=== PATIENT | male | born 1960 | race Caucasian/White ===

== ENCOUNTER 2017-12-27 09:13 | Inpatient (IN) | payer OTHER ==
[2017-12-27 09:26] VITALS: BMI 31.9
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
[2017-12-27] MEDS ORDERED: MAGNESIUM CITRATE 300 ML BOTTLE PO PRN (11:07)
[2017-12-27] MEDS ORDERED: NICOTINE POLACRILEX 2 MG GUM BC PRN (11:07)
[2017-12-27] MEDS ORDERED: chlordiazePOXIDE HCL 25 MG CAPSULE PO PRN (11:07)
[2017-12-27] MEDS ORDERED: guaiFENesin/D-METHORPHAN HB 10 ML UNIT-DOSE CUPS PO PRN (11:07)
[2017-12-27] MEDS ORDERED: MAGNESIUM HYDROX 2400MG/30ML ORAL SUSPENSION 30 ML CUP PO PRN (11:07)
[2017-12-27] MEDS ORDERED: IBUPROFEN 400 MG TABLET (FP) PO PRN (11:07)
[2017-12-27] MEDS ORDERED: MENTHOL/PHENOL 1 EACH UD MM PRN (11:07)
[2017-12-27] MEDS ORDERED: LOPERAMIDE HCL 2 MG CAPSULE PO PRN (11:07)
[2017-12-27] MEDS ORDERED: ACETAMINOPHEN 325 MG TABLET (FP) PO PRN (11:07)
[2017-12-27] MEDS ORDERED: MAG HYDROX/AL HYDROX/SIMETH 30 ML UNIT-DOSE CUP PO PRN (11:07)
[2017-12-27] MEDS ORDERED: hydrOXYzine PAMOATE 50 MG CAPSULE (FP) PO PRN (11:07)
[2017-12-27] MEDS ORDERED: P-EPHED 60MG/TRIPROLIDI 2.5MG TABLET PO PRN (11:07)
[2017-12-27] MEDS ORDERED: chlordiazePOXIDE HCL 25 MG CAPSULE PO ONE (12:30)
[2017-12-27] MEDS: NICOTINE 21 MG/24 HOURS TOPICAL PATCH TD SCH (12:31)
--- NOTE | 2017-12-27 17:04 | PN ---
[facility] Progress Note Note: Psychiatrist family and consumer education teacher: As per nursing report patient asking for preadmission medications; Chart reviewed, as per medications list patient suffers Schizophrenia and taking Seroquel 600mg po qhs, 300mg poqd. Max. FDA approved dose of Seroquel is 800mg per day, patient can be over sedated on Detox medications and High Seroquel dose at the same time, at the same time patient at risk to be psychotic in a case his Seroquel would be decreased, Start on: Seroquel 600mg po qhs Seroquel 200mg poqd Final dose of Seroquel should be adjusted per psychiatric evaluation in am.
[2017-12-27] MEDS: chlordiazePOXIDE HCL 25 MG CAPSULE PO SCH ×2 (17:13→22:25)
[2017-12-27] MEDS: ENALAPRIL MALEATE 10 MG TABLET (FP) PO SCH (17:13)
[2017-12-27 17:22] LABS: URINE APPEARANCE CLEAR; URINE BILIRUBIN NEGATIVE (<2.0 mg/dL); URINE COLOR LTYELLOW; URINE GLUCOSE (UA) NEGATIVE (NEGATIVE); URINE KETONE NEGATIVE (NEGATIVE); URINE LEUK ESTERASE NEGATIVE (NEGATIVE); URINE NITRITE NEGATIVE (NEGATIVE); URINE PROTEIN NEGATIVE (NEGATIVE); URINE UROBILINOGEN NEGATIVE mg/dL (0.2-1.0)
[2017-12-27] MEDS ORDERED: MELATONIN 5 MG TABLETS PO PRN (22:00)
[2017-12-27] MEDS: QUEtiapine FUMARATE 200 MG TABLET PO SCH (22:24)
[2017-12-27] MEDS: THIAMINE HCL 100 MG TABLET (FP) PO SCH (22:24)
[2017-12-28] MEDS: chlordiazePOXIDE HCL 25 MG CAPSULE PO SCH ×4 (05:38→22:29)
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
[2017-12-28 09:50] LABS: RDW 16.1 % (11.9-15.9)
[2017-12-28 09:53] LABS: HEMATOCRIT 40.4 % (35.4-49); HEMOGLOBIN 13.4 GM/dL (11.7-16.9); MCH 31.7 pg (25.7-33.7); MCHC 33.2 g/dl (32.0-35.9); MEAN CELL VOLUME 95.4 fl (80-96); MEAN PLT VOLUME 9.7 fl (7.5-11.1); PLATELET COUNT 224 K/MM3 (134-434); RBC 4.23 M/mm3 (4.00-5.60); WHITE BLOOD COUNT 6.3 K/mm3 (4.0-10.0)
[2017-12-28 09:57] LABS: ALBUMIN 3.4 g/dl (3.4-5.0); ANION GAP 10 MMOL/L (8-16); BLOOD UREA NITROGEN 12 mg/dL (7-18); CHLORIDE 104 mmol/L (98-107); CO2 27 mmol/L (21-32); GLUCOSE,RANDOM 99 mg/dL (74-106); POTASSIUM 4.2 mmol/L (3.5-5.1); SGPT/ALT 98 U/L (12-78); SODIUM 141 mmol/L (136-145)
[2017-12-28 10:00] LABS: ALK PHOS 67 U/L (45-117); BILIRUBIN,TOTAL 0.5 mg/dL (0.2-1.0); CREATININE 0.9 mg/dL (0.7-1.3); SGOT/AST 47 U/L (15-37); TOT PROT 6.7 g/dl (6.4-8.2)
[2017-12-28] MEDS ORDERED: QUEtiapine FUMARATE 200 MG TABLET PO SCH ×2 (10:00)
[2017-12-28] MEDS: PRENATAL VITAMINS W/ FOLIC ACID TABLET (FP) PO SCH (10:16)
[2017-12-28] MEDS: FLUoxetine HCL 20 MG CAPSULE (FP) PO SCH (10:17)
[2017-12-28] MEDS: ENALAPRIL MALEATE 10 MG TABLET (FP) PO SCH (10:17)
[2017-12-28] MEDS: QUEtiapine FUMARATE 200 MG TABLET PO SCH ×2 (10:17→22:29)
[2017-12-28] MEDS: NICOTINE 21 MG/24 HOURS TOPICAL PATCH TD SCH (10:17)
--- NOTE | 2017-12-28 11:11 | PN ---
S CIWA - CIWA Score Nausea/Vomitin-No Nausea/No Vomiting Muscle Tremors: 3 Anxiety: 5 Agitation: 4-Moderately Restless Paroxysmal Sweats: 2 Orientation: 0-Oriented Tacttile Disturbances: 0-None Auditory Disturbances: 0-None Visual Disturbances: 0-None Headache: 0-None Present CIWA-Ar Total Score: 14 BHS Progress Note (SOAP) Subjective: ANXIETY,SWEATS,FATIGUE. Objective: 12/28/17 11:10 Vital Signs 12/28/17 12/28/17 12/28/17 03:30 06:09 06:30 Temperature 96.8 F L Pulse Rate 74 Respiratory 18 20 18 Rate Blood Pressure 139/87 12/28/17 09:17 Temperature 97.0 F L Pulse Rate 92 H Respiratory 20 Rate Blood Pressure 127/84 Laboratory Tests 12/27/17 12/28/17 12/28/17 15:54 07:30 07:30 WBC 6.3 RBC 4.23 Hgb 13.4 Hct 40.4 MCV 95.4 MCH 31.7 MCHC 33.2 RDW 16.1 H Plt Count 224 MPV 9.7 Sodium 141 Potassium 4.2 Chloride 104 Carbon Dioxide 27 Anion Gap 10 BUN 12 Creatinine 0.9 Creat Clearance w eGFR > 60 Random Glucose 99 Calcium 9.0 Total Bilirubin 0.5 AST 47 H D ALT 98 H D Alkaline Phosphatase 67 Total Protein 6.7 Albumin 3.4 Urine Color Ltyellow Urine Appearance Clear Urine pH 5.0 D Ur Specific [place] 1.011 Urine Protein Negative Urine Glucose (UA) Negative Urine Ketones Negative Urine Blood Negative Urine Nitrite Negative Urine Bilirubin Negative Urine Urobilinogen Negative Ur Leukocyte Esterase Negative Assessment: 12/28/17 11:10 WITHDRAWAL SX Plan: CONTINUE DETOX INCREASE PO FLUIDS
--- NOTE | 2017-12-28 14:18 | EKG ---
Test Reason : Blood Pressure : / mmHG Vent. Rate : 101 BPM Atrial Rate : 101 BPM P-R Int : 142 ms QRS Dur : 088 ms QT Int : 338 ms P-R-T Axes : 071 056 041 degrees QTc Int : 438 ms SINUS TACHYCARDIA OTHERWISE NORMAL ECG NO PREVIOUS ECGS AVAILABLE Confirmed by YUE KELLEY MD ([id number]) on 12/28/2017 2:18:08 PM Referred By: Confirmed By:YUE KELLEY MD
[2017-12-28] MEDS: THIAMINE HCL 100 MG TABLET (FP) PO SCH (22:29)
[2017-12-29] MEDS: chlordiazePOXIDE HCL 25 MG CAPSULE PO SCH ×2 (05:25→10:09)
[2017-12-29] MEDS: QUEtiapine FUMARATE 200 MG TABLET PO SCH (10:09)
[2017-12-29] MEDS: FLUoxetine HCL 20 MG CAPSULE (FP) PO SCH (10:09)
[2017-12-29] MEDS: NICOTINE 21 MG/24 HOURS TOPICAL PATCH TD SCH (10:09)
[2017-12-29] MEDS: ENALAPRIL MALEATE 10 MG TABLET (FP) PO SCH (10:09)
[2017-12-29] MEDS: PRENATAL VITAMINS W/ FOLIC ACID TABLET (FP) PO SCH (10:09)
--- NOTE | 2017-12-29 11:00 | PN ---
S CIWA - CIWA Score Nausea/Vomitin-No Nausea/No Vomiting Muscle Tremors: 4-Moderate,w/Arms Extend Anxiety: 4-Mod. Anxious/Guarded Agitation: 4-Moderately Restless Paroxysmal Sweats: 1-Minimal Palms Moist Orientation: 0-Oriented Tacttile Disturbances: 0-None Auditory Disturbances: 0-None Visual Disturbances: 0-None Headache: 0-None Present CIWA-Ar Total Score: 13 S Progress Note (SOAP) Subjective: DECREASE TREMORS, ANXIETY,SWEATS. DETOX TAPER PROCEEDING WELL. Objective: 12/29/17 10:59 Vital Signs 12/29/17 12/29/17 12/29/17 03:45 05:55 06:30 Temperature 97.0 F L Pulse Rate 69 Respiratory 16 18 18 Rate Blood Pressure 121/74 12/29/17 09:40 Temperature 96.8 F L Pulse Rate 84 Respiratory 18 Rate Blood Pressure 127/82 Laboratory Tests 12/27/17 12/28/17 12/28/17 15:54 07:30 07:30 WBC 6.3 RBC 4.23 Hgb 13.4 Hct 40.4 MCV 95.4 MCH 31.7 MCHC 33.2 RDW 16.1 H Plt Count 224 MPV 9.7 Sodium Potassium Chloride Carbon Dioxide Anion Gap BUN Creatinine Creat Clearance w eGFR Random Glucose Calcium Total Bilirubin AST ALT Alkaline Phosphatase Total Protein Albumin Urine Color Ltyellow Urine Appearance Clear Urine pH 5.0 D Ur Specific [place] 1.011 Urine Protein Negative Urine Glucose (UA) Negative Urine Ketones Negative Urine Blood Negative Urine Nitrite Negative Urine Bilirubin Negative Urine Urobilinogen Negative Ur Leukocyte Esterase Negative RPR Titer HIV 1&2 Antibody Screen Negative HIV P24 Antigen Negative 12/28/17 12/28/17 07:30 07:30 WBC RBC Hgb Hct MCV MCH MCHC RDW Plt Count MPV Sodium 141 Potassium 4.2 Chloride 104 Carbon Dioxide 27 Anion Gap 10 BUN 12 Creatinine 0.9 Creat Clearance w eGFR > 60 Random Glucose 99 Calcium 9.0 Total Bilirubin 0.5 AST 47 H D ALT 98 H D Alkaline Phosphatase 67 Total Protein 6.7 Albumin 3.4 Urine Color Urine Appearance Urine pH Ur Specific [place] Urine Protein Urine Glucose (UA) Urine Ketones Urine Blood Urine Nitrite Urine Bilirubin Urine Urobilinogen Ur Leukocyte Esterase RPR Titer Nonreactive HIV 1&2 Antibody Screen HIV P24 Antigen Assessment: 12/29/17 11:00 WITHDRAWAL SX Plan: CONTINUE DETOX
[2017-12-29 12:57] VITALS: BP 166/100; PULSE 101; TEMP 97.8
--- NOTE | 2017-12-29 16:59 | DS ---
[facility] Detox Discharge Summary Admission Date: 12/27/17 Discharge Date: 12/29/17 - History Present History: Alcohol Dependence Additional Comments: PT SIGNED OUT AMA FOR PERSONAL REASONS. Pertinent Past History: PLEASE SEE DX BELOW - Physical Exam Results Vital Signs: Vital Signs Temperature 97.8 F 12/29/17 12:56 Pulse Rate 101 H 12/29/17 12:56 Respiratory Rate 20 12/29/17 12:56 Blood Pressure 166/100 12/29/17 12:56 O2 Sat by Pulse Oximetry (%) Pertinent Admission Physical Exam Findings: WITHDRAWAL SX Laboratory Tests 12/27/17 12/28/17 12/28/17 15:54 07:30 07:30 WBC 6.3 RBC 4.23 Hgb 13.4 Hct 40.4 MCV 95.4 MCH 31.7 MCHC 33.2 RDW 16.1 H Plt Count 224 MPV 9.7 Sodium Potassium Chloride Carbon Dioxide Anion Gap BUN Creatinine Creat Clearance w eGFR Random Glucose Calcium Total Bilirubin AST ALT Alkaline Phosphatase Total Protein Albumin Urine Color Ltyellow Urine Appearance Clear Urine pH 5.0 D Ur Specific [place] 1.011 Urine Protein Negative Urine Glucose (UA) Negative Urine Ketones Negative Urine Blood Negative Urine Nitrite Negative Urine Bilirubin Negative Urine Urobilinogen Negative Ur Leukocyte Esterase Negative RPR Titer HIV 1&2 Antibody Screen Negative HIV P24 Antigen Negative 12/28/17 12/28/17 07:30 07:30 WBC RBC Hgb Hct MCV MCH MCHC RDW Plt Count MPV Sodium 141 Potassium 4.2 Chloride 104 Carbon Dioxide 27 Anion Gap 10 BUN 12 Creatinine 0.9 Creat Clearance w eGFR > 60 Random Glucose 99 Calcium 9.0 Total Bilirubin 0.5 AST 47 H D ALT 98 H D Alkaline Phosphatase 67 Total Protein 6.7 Albumin 3.4 Urine Color Urine Appearance Urine pH Ur Specific [place] Urine Protein Urine Glucose (UA) Urine Ketones Urine Blood Urine Nitrite Urine Bilirubin Urine Urobilinogen Ur Leukocyte Esterase RPR Titer Nonreactive HIV 1&2 Antibody Screen HIV P24 Antigen - Treatment Hospital Course: Discharged Condition Good - Medication Discharge Medications: Ambulatory Orders Enalapril Maleate [Vasotec -] 10 mg PO DAILY 11/22/13 Quetiapine Fumarate [Seroquel -] 600 mg PO HS 11/22/13 Fluoxetine HCl [Prozac -] 10 mg PO DAILY 12/27/17 Quetiapine Fumarate [Seroquel -] 300 mg PO DAILY 12/27/17 - Diagnosis (1) Alcohol dependence with uncomplicated withdrawal Status: Acute (2) HTN (hypertension) Status: Chronic Qualifiers: Hypertension type: essential hypertension Qualified Code(s): I10 - Essential (primary) hypertension (3) Nicotine dependence, uncomplicated Status: Acute Qualifiers: Nicotine product type: cigarettes Qualified Code(s): F17.210 - Nicotine dependence, cigarettes, uncomplicated (4) Obesity (BMI 30-39.9) Status: Chronic - AMA Did Patient Leave Against Medical Advice: Yes (AMA)
[2017-12-29] MEDS ORDERED: chlordiazePOXIDE 5 MG CAPSULE PO SCH (17:00)
[2017-12-30] MEDS ORDERED: chlordiazePOXIDE HCL 10 MG CAPSULE PO SCH (17:00)
== END 2017-12-29 15:51 | disposition left against medical advice (07) | DRG 770 ==
LOC: YASAS 09:13 → Y3N 11:34
PROC: HZ2ZZZZ Detoxification Services for Substance Abuse Treatment (ICD-10-PCS; principal; 2017-12-27)
DX: F10.230 Alcohol dependence with withdrawal, uncomplicated (principal); F17.210 Nicotine dependence, cigarettes, uncomplicated; F20.9 Schizophrenia, unspecified; I10 Essential (primary) hypertension; E78.00 Pure hypercholesterolemia, unspecified; E66.9 Obesity, unspecified; Z68.32 Body mass index [BMI] 32.0-32.9, adult
CPT/HCPCS: 36415; 80053; 81003; 85027; 86593; 93005; 93010

== ENCOUNTER 2018-06-08 15:09 | Inpatient (IN) | payer OTHER ==
[2018-06-08 17:04] VITALS: BMI 25.9
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
[2018-06-08] MEDS ORDERED: P-EPHED 60MG/TRIPROLIDI 2.5MG TABLET PO PRN (18:56)
[2018-06-08] MEDS ORDERED: MAGNESIUM CITRATE 300 ML BOTTLE PO PRN (18:56)
[2018-06-08] MEDS ORDERED: guaiFENesin/D-METHORPHAN HB 10 ML UNIT-DOSE CUPS PO PRN (18:56)
[2018-06-08] MEDS ORDERED: LOPERAMIDE HCL 2 MG CAPSULE PO PRN (18:56)
[2018-06-08] MEDS ORDERED: ACETAMINOPHEN 325 MG TABLET (FP) PO PRN (18:56)
[2018-06-08] MEDS ORDERED: chlordiazePOXIDE HCL 25 MG CAPSULE PO PRN (18:56)
[2018-06-08] MEDS ORDERED: MAGNESIUM HYDROX 2400MG/30ML ORAL SUSPENSION 30 ML CUP PO PRN (18:56)
[2018-06-08] MEDS ORDERED: MENTHOL/PHENOL 1 EACH UD MM PRN (18:56)
[2018-06-08] MEDS ORDERED: hydrOXYzine PAMOATE 50 MG CAPSULE (FP) PO PRN (18:56)
[2018-06-08] MEDS ORDERED: IBUPROFEN 400 MG TABLET (FP) PO PRN (18:56)
[2018-06-08] MEDS ORDERED: MAG HYDROX/AL HYDROX/SIMETH 30 ML UNIT-DOSE CUP PO PRN (18:56)
[2018-06-08] MEDS ORDERED: MELATONIN 5 MG TABLETS PO PRN (22:00)
[2018-06-08] MEDS: THIAMINE HCL 100 MG TABLET (FP) PO SCH (22:45)
[2018-06-08] MEDS: chlordiazePOXIDE HCL 25 MG CAPSULE PO SCH (22:45)
[2018-06-09] MEDS: chlordiazePOXIDE HCL 25 MG CAPSULE PO SCH ×4 (06:28→22:01)
[2018-06-09] MEDS ORDERED: ENALAPRIL MALEATE 10 MG TABLET (FP) PO SCH (10:00)
[2018-06-09 10:33] LABS: ALBUMIN 3.6 g/dl (3.4-5.0); ALK PHOS 57 U/L (45-117); ANION GAP 9 MMOL/L (8-16); BILIRUBIN,TOTAL 0.5 mg/dL (0.2-1); BLOOD UREA NITROGEN 18 mg/dL (7-18); CALCIUM 8.8 mg/dL (8.5-10.1); CHLORIDE 105 mmol/L (98-107); CO2 27 mmol/L (21-32); CREATININE 1.2 mg/dL (0.55-1.3); GLUCOSE,RANDOM 104 mg/dL (74-106); POTASSIUM 3.7 mmol/L (3.5-5.1); SGOT/AST 39 U/L (15-37); SGPT/ALT 55 U/L (13-61); SODIUM 140 mmol/L (136-145); TOT PROT 6.8 g/dl (6.4-8.2)
[2018-06-09 10:36] LABS: HEMATOCRIT 39.9 % (35.4-49); HEMOGLOBIN 13.6 GM/dL (11.7-16.9); MCH 32.4 pg (25.7-33.7); MCHC 33.9 g/dl (32.0-35.9); MEAN CELL VOLUME 95.4 fl (80-96); MEAN PLT VOLUME 9.3 fl (7.5-11.1); PLATELET COUNT 208 K/MM3 (134-434); RBC 4.19 M/mm3 (4.00-5.60); RDW 16.4 % (11.9-15.9); WHITE BLOOD COUNT 6.3 K/mm3 (4.0-10.0)
[2018-06-09] MEDS: PRENATAL VITAMINS W/ FOLIC ACID TABLET (FP) PO SCH (12:50)
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
--- NOTE | 2018-06-09 16:24 | PN ---
S CIWA - CIWA Score Nausea/Vomitin-No Nausea/No Vomiting Muscle Tremors: None Anxiety: 2 Agitation: 0-Normal Activity Paroxysmal Sweats: 3 Orientation: 0-Oriented Tacttile Disturbances: 1-Very Mild Itch/Numbness Auditory Disturbances: 0-None Visual Disturbances: 2-Mild Sensitivity Headache: 4-Moderately Severe CIWA-Ar Total Score: 12 S Progress Note (SOAP) Subjective: Interrupted Sleep, Fatigue, H/A. Objective: PATIENT A & O X 3. IN NO ACUTE DISTRESS. 06/09/18 16:23 Vital Signs Temperature 98.2 F 06/09/18 13:26 Pulse Rate 80 06/09/18 13:26 Respiratory Rate 20 06/09/18 13:26 Blood Pressure 112/78 06/09/18 13:26 O2 Sat by Pulse Oximetry (%) Laboratory Tests 06/09/18 06/09/18 06/09/18 07:00 07:00 07:00 WBC 6.3 RBC 4.19 Hgb 13.6 Hct 39.9 MCV 95.4 MCH 32.4 MCHC 33.9 RDW 16.4 H Plt Count 208 MPV 9.3 Sodium 140 Potassium 3.7 Chloride 105 Carbon Dioxide 27 Anion Gap 9 BUN 18 Creatinine 1.2 Creat Clearance w eGFR > 60 Random Glucose 104 Calcium 8.8 Total Bilirubin 0.5 AST 39 H ALT 55 Alkaline Phosphatase 57 Total Protein 6.8 Albumin 3.6 RPR Titer Nonreactive LABS NOTED. Assessment: 06/09/18 16:24 WITHDRAWAL SYMPTOMS. Plan: CONTINUE DETOX.
[2018-06-09] MEDS ORDERED: QUEtiapine FUMARATE 300 MG TABLET PO SCH (22:00)
[2018-06-09] MEDS: THIAMINE HCL 100 MG TABLET (FP) PO SCH (22:01)
[2018-06-10] MEDS: chlordiazePOXIDE HCL 25 MG CAPSULE PO SCH ×3 (05:55→17:50)
--- NOTE | 2018-06-10 09:32 | PN ---
S CIWA - CIWA Score Nausea/Vomitin-Mild Nausea/No Vomiting Muscle Tremors: 2 Anxiety: 3 Agitation: 2 Paroxysmal Sweats: 1-Minimal Palms Moist Orientation: 1-Uncertain about Date Tacttile Disturbances: 0-None Auditory Disturbances: 0-None Visual Disturbances: 0-None Headache: 2-Mild CIWA-Ar Total Score: 12 S Progress Note (SOAP) Subjective: tremor anxiety sweating Objective: 06/10/18 09:31 Vital Signs Temperature 97.4 F L 06/10/18 09:27 Pulse Rate 90 06/10/18 09:27 Respiratory Rate 20 06/10/18 09:27 Blood Pressure 140/79 06/10/18 09:27 O2 Sat by Pulse Oximetry (%) Laboratory Last Values WBC 6.3 K/mm3 (4.0-10.0) 06/09/18 07:00 RBC 4.19 M/mm3 (4.00-5.60) 06/09/18 07:00 Hgb 13.6 GM/dL (11.7-16.9) 06/09/18 07:00 Hct 39.9 % (35.4-49) 06/09/18 07:00 MCV 95.4 fl (80-96) 06/09/18 07:00 MCH 32.4 pg (25.7-33.7) 06/09/18 07:00 MCHC 33.9 g/dl (32.0-35.9) 06/09/18 07:00 RDW 16.4 % (11.9-15.9) H 06/09/18 07:00 Plt Count 208 K/MM3 (134-434) 06/09/18 07:00 MPV 9.3 fl (7.5-11.1) 06/09/18 07:00 Sodium 140 mmol/L (136-145) 06/09/18 07:00 Potassium 3.7 mmol/L (3.5-5.1) 06/09/18 07:00 Chloride 105 mmol/L (98-107) 06/09/18 07:00 Carbon Dioxide 27 mmol/L (21-32) 06/09/18 07:00 Anion Gap 9 MMOL/L (8-16) 06/09/18 07:00 BUN 18 mg/dL (7-18) 06/09/18 07:00 Creatinine 1.2 mg/dL (0.55-1.3) 06/09/18 07:00 Creat Clearance w eGFR > 60 (>60) 06/09/18 07:00 Random Glucose 104 mg/dL (74-106) 06/09/18 07:00 Calcium 8.8 mg/dL (8.5-10.1) 06/09/18 07:00 Total Bilirubin 0.5 mg/dL (0.2-1) 06/09/18 07:00 AST 39 U/L (15-37) H 06/09/18 07:00 ALT 55 U/L (13-61) 06/09/18 07:00 Alkaline Phosphatase 57 U/L (45-117) 06/09/18 07:00 Total Protein 6.8 g/dl (6.4-8.2) 06/09/18 07:00 Albumin 3.6 g/dl (3.4-5.0) 06/09/18 07:00 RPR Titer Nonreactive (NONREACTIVE) 06/09/18 07:00 lab noted 06/10/18 09:36 hypertension add enalipril 5 mg at 1800 Assessment: 06/10/18 09:36 alcohol withdrawal sx 06/10/18 09:36 hypertension Plan: continue detox
[2018-06-10] MEDS ORDERED: ENALAPRIL MALEATE 10 MG TABLET (FP) PO SCH ×2 (09:33→10:03)
[2018-06-10] MEDS ORDERED: FLUoxetine HCL 10 MG TABLET PO SCH (10:00)
[2018-06-10] MEDS: PRENATAL VITAMINS W/ FOLIC ACID TABLET (FP) PO SCH (10:36)
[2018-06-10] MEDS ORDERED: FLUoxetine HCL 10 MG CAPSULE (FP) PO SCH (10:45)
[2018-06-10 14:56] LABS: URINE APPEARANCE CLEAR; URINE BILIRUBIN NEGATIVE (<2.0 mg/dL); URINE COLOR YELLOW; URINE GLUCOSE (UA) NEGATIVE (NEGATIVE); URINE KETONE NEGATIVE (NEGATIVE); URINE LEUK ESTERASE NEGATIVE (NEGATIVE); URINE NITRITE NEGATIVE (NEGATIVE); URINE PROTEIN NEGATIVE (NEGATIVE)
[2018-06-10 17:52] VITALS: BP 128/77; PULSE 77; TEMP 98.5
[2018-06-10] MEDS ORDERED: ENALAPRIL MALEATE 5 MG TABLET (FP) PO SCH (18:00)
--- NOTE | 2018-06-10 18:09 | PN ---
[facility] Progress Note Note: Patient left AMA. Aware of the risks.
--- NOTE | 2018-06-10 20:06 | DS ---
[facility] Detox Discharge Summary Admission Date: 06/08/18 Discharge Date: 06/10/18 - History Present History: Alcohol Dependence Additional Comments: Patient left AMA. Patient to follow with ED if worsening symptoms are present. - Physical Exam Results Vital Signs: Vital Signs Temperature 98.5 F 06/10/18 17:51 Pulse Rate 77 06/10/18 17:51 Respiratory Rate 20 06/10/18 17:51 Blood Pressure 128/77 06/10/18 17:51 O2 Sat by Pulse Oximetry (%) - Medication Discharge Medications: Ambulatory Orders Enalapril Maleate [Vasotec -] 10 mg PO DAILY 11/22/13 Quetiapine Fumarate [Seroquel -] 600 mg PO HS 11/22/13 Fluoxetine HCl [Prozac -] 10 mg PO DAILY 12/27/17 Quetiapine Fumarate [Seroquel -] 300 mg PO DAILY 12/27/17 - Diagnosis (1) Alcohol dependence with uncomplicated withdrawal Status: Acute (2) Cocaine dependence Status: Chronic (3) HTN (hypertension) Status: Chronic Qualifiers: Hypertension type: essential hypertension Qualified Code(s): I10 - Essential (primary) hypertension (4) Nicotine dependence, uncomplicated Status: Chronic Qualifiers: Nicotine product type: cigarettes Qualified Code(s): F17.210 - Nicotine dependence, cigarettes, uncomplicated (5) Non-compliance Status: Chronic (6) Obesity (BMI 30-39.9) Status: Chronic - AMA Did Patient Leave Against Medical Advice: Yes
[2018-06-10] MEDS ORDERED: chlordiazePOXIDE 5 MG CAPSULE PO SCH (23:00)
[2018-06-11] MEDS ORDERED: chlordiazePOXIDE HCL 10 MG CAPSULE PO SCH (23:00)
== END 2018-06-10 18:30 | disposition left against medical advice (07) | DRG 770 ==
LOC: YASAS 15:09 → Y3N 19:53
PROVIDERS: ADMIT Surgery; ATTEND Surgery
PROC: HZ2ZZZZ Detoxification Services for Substance Abuse Treatment (ICD-10-PCS; principal; 2018-06-08)
DX: F10.230 Alcohol dependence with withdrawal, uncomplicated (principal); F14.20 Cocaine dependence, uncomplicated; F17.210 Nicotine dependence, cigarettes, uncomplicated; F20.9 Schizophrenia, unspecified; F19.24 Other psychoactive substance dependence with psychoactive substance-induced mood disorder; I10 Essential (primary) hypertension; G47.00 Insomnia, unspecified; E78.00 Pure hypercholesterolemia, unspecified; E66.9 Obesity, unspecified; Z68.26 Body mass index [BMI] 26.0-26.9, adult; Z91.19 Patient's noncompliance with other medical treatment and regimen; Z97.0 Presence of artificial eye
CPT/HCPCS: 36415; 80053; 81003; 85027; 86593

== ENCOUNTER 2020-01-29 15:12 | Inpatient (IN) | payer OTHER ==
--- OUTSIDE RECORDS SUMMARY | 2020-01-29 15:16 | XMS ---
:1960 Author Organization [facility] Care Team Providers Name Role Phone ED STAFF YUE DÍAZ Unavailable Unavailable [id number], [id number] Unavailable Unavailable ED STAFF PHYSICIAN, STAFF Unavailable Unavailable DENNIS ACEVES MD Unavailable Unavailable Bro, Roberto Carlos Unavailable Unavailable Bro, C Unavailable Unavailable [place], C Unavailable Unavailable [place], C Unavailable Unavailable Re-disclosure Warning The records that you are about to access may contain information from federally- assisted alcohol or drug abuse programs. If such information is present, then the following federally mandated warning applies: This information has been disclosed to you from records protected by federal confidentiality rules (42 CFR part 2). The federal rules prohibit you from making any further disclosure of this information unless further disclosure is expressly permitted by the written consent of the person to whom it pertains or as otherwise permitted by 42 CFR part 2. A general authorization for the release of medical or other information is NOT sufficient for this purpose. The Federal rules restrict any use of the information to criminally investigate or prosecute any alcohol or drug abuse patient.The records that you are about to access may contain highly sensitive health information, the redisclosure of which is protected by Article 27-F of the [facility] Public Health law. If you continue you may haveaccess to information: Regarding HIV / AIDS; Provided by facilities licensed or operated by the [facility] Office of Mental Health; or Provided by the [facility] Office for People With Developmental Disabilities. If such information is present, then the following [facility] mandated warning applies: This information has been disclosed to you from confidential records which are protected by state law. State law prohibits you from making any further disclosure of this information without the specific written consent of the person to whom it pertains, or as otherwise permitted by law. Any unauthorized further disclosure in violation of state law may result in a fine or care home sentence or both. A general authorization for the release of medical or other information is NOT sufficient authorization for further disclosure. Allergies and Adverse Reactions Type Description Substance Reaction Status Data Source(s ) Food allergy No Known Food No Known Food [facility] Drug allergy No Known Drug No Known Drug [facility] Encounters Encounter Providers Location Date Indications Data Source(s ) Inpatient Attender: DENNIS [facility]-3N 06/27/2019 [facility] YOLAAdmitter: Martha 03:07:00 [facility] 10:33:00 PM EDT Patient discharged. Outpatient [facility] 06/27/2019 12:59:00 PM [facility] - [address] [place] [address] 03:34:00 PM EST Patient discharged. Emergency Attender: YUE ED STAFF H 06/26/2019 11:43:00 PM [facility] PHYSICIANAttender: STAFF ED [facility] - 06/27/2019 Medical Center STAFF PHYSICIANAdmitter: 03:14:00 PM [facility] ED STAFF PHYSICIANReferrer: STAFF ED STAFF PHYSICIAN Patient discharged. Attender: [id number] 2017 10:24:00 [id number] Hospital Attender: [id number] 2017 [facility] Attender: [id number] 2017 08:27:00 [facility]6766 PM EDT Hospital Attender: [id number] 2017 08:01:00 [facility]66 PM EDT Hospital Attender: [id number] 2008 05:58:00 [facility] PM EDT Hospital Attender: [id number] 2006 07:00:00 [facility]66 PM EDT Hospital Attender: [id number] 2006 06:00:00 [facility] PM EDT Hospital Attender: [id number] 2006 06:00:00 [facility] PM EDT Hospital Attender: [id number] 2006 05:00:00 [facility]66 PM EDT Hospital Attender: [id number] 2006 02:00:00 [facility] PM EDT Hospital Medications Medication Brand Start Product Dose Route Administrative Pharmacy [facility] Indications Reaction Description Data Name Date Form Instructions Instructions Source(s) Enalapril Enalap 03/03/ ORAL complet [facility] 2017 [facility] Oral 10 MG 12:00: Hospital Tablet ORAL 00 AM Tablet EST Insurance Providers Payer name Policy type Policy ID Covered Covered green party's Policy P alethea / Coverage green party ID relationship to [facility] ormation type silva [employer] FIRST [id number] SP [id number] R SELF PAY 0 Self 0 MEDICAID INP [id number] Self [id number] R [facility]CH [facility] [id number] Self [id number] FIRST HMO [place] O [id number] 01 [id number] [place] W [id number] 01 [id number] [employer] MEDICAID [id number] SP [id number] Problems, Conditions, and Diagnoses Code Display Name Description Problem Type Effective Data Dates Source(s) F14.99 Cocaine use, COCAINE USE, UNSP Diagnosis 06/26/2019 [facility] unspecified with WITH UNSPECIFIED 11:43:00 PM M edical unspecified COCAINE-INDUCED EST Center cocaine-induced DISORDER disorder F10.99 Alcohol use, ALCOHOL USE, UNSP Diagnosis 06/26/2019 [facility] unspecified with WITH UNSPECIFIED 11:43:00 PM M 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 F25.9 Schizoaffective SCHIZOAFFECTIVE Diagnosis 06/26/2019 [facility] disorder, DISORDER, 11:43:00 PM Medical unspecified UNSPECIFIED EST Center R45.851 Suicidal ideations SUICIDAL IDEATIONS Diagnosis 0 [facility] 11:43:00 PM Medical EST Center 295.30 PARANOID TYPE Schizophrenia, Diagnosis 01/22/2001 [facility] SCHIZOPHRENIA paranoid type 10:15:00 AM [facility] UNSPECIFIED STATE EDT Hospita l Results ID Date Data Source [id number] 01/05/2020 10:02:00 AM EDT [facility] Name Value Range Interpretation Code Description Data Sulma rce(s) Supporting Document(s ) SARS-CoV-2 [facility] RNA Resp Health System Ql TAO+probe This lab was ordered by [facility] a nd reported by [facility]. ID Date Data Source [id number] 11/06/2019 09:14:00 PM EDT [facility] Name Value Range Interpretation Code Description Data Sulma rce(s) Supporting Document(s ) SARS-CoV-2 [facility] RNA Resp [facility] Ql TAO+probe This lab was ordered by [facility] and reported by [facility]. ID Date Data Source [id number] 10/27/2019 01:18:00 PM EDT [facility] Name Value Range Interpretation Code Description Data Sulma rce(s) Supporting Document(s ) SARS-CoV-2 [facility] RNA Resp Health System Ql TAO+probe This lab was ordered by [facility] a nd reported by [facility]. ID Date Data Source [id number] 10/12/2019 10:48:00 AM ED[facility] Name Value Range Interpretation Code Description Data Sulma rce(s) Supporting Document(s ) SARS-CoV-2 [facility] RNA Resp Ql TAO+probe This lab was ordered by [facility] a nd reported by [facility]. ID Date Data Source [id number] 09/22/2019 11:56:00 PM EDT [facility] Name Value Range Interpretation Description Data Sup porting Code Source(s) Document(s ) SARS [facility] Coronavirus 2 RNA Presence Respiratory Specimen TAO Probe Detection This lab was ordered by [facility] and reported by [facility]. ID Date Data Source [id number] 09/22/2019 03:16:00 PM EDT [facility] Name Value Range Interpretation Code Description Data Sulma rce(s) Supporting Document(s ) SARS-CoV-2 [facility] RNA Resp Ql TAO+probe This lab was ordered by [facility] and reported by [facility]. ID Date Data Source [id number] 09/17/2019 03:52:00 AM EDT [facility] Name Value Range Interpretation Code Description Data Sulma rce(s) Supporting Document(s ) SARS-CoV-2 [facility] RNA Resp Health System Ql TAO+probe This lab was ordered by [facility] a nd reported by [facility]. ID Date Data Source [id number] 08/27/2019 08:58:00 PM EDT [facility] Name Value Range Interpretation Description Data Sup porting Code Source(s) Document(s ) SARS-CoV-2 ID [facility] NOW REPORTABLE This lab was ordered by [facility] and reported by [facility]. ID Date Data Source [id number] 08/24/2019 07:00:00 AM EDT [facility] Name Value Range Interpretation Code Description Data Sulma rce(s) Supporting Document(s ) SARS-COV-2 [facility] RNA RESP Diagnostics QL TAO+PROBE This lab was ordered by [facility] a nd reported by [facility]. ID Date Data Source Urinalysis.[id number] 06/27/2019 05:30:[address] [facility] 0 Name Value Range Interpretation Description Data Sup porting Code Source(s) Document(s ) Glucose NEGATIVE <content [facility] [Mass/volume] styleCode="Lauren Sean in Urine by d">Urine Medical Test strip Glucose Center </content>NEGA TIVE MG/DL<content styleCode="Ana lics"> (NEGATIVE MG/DL)</conten t> UNK NEGATIVE <content [facility] styleCode="Lauren Liangs d">Urine Medical Bilirubin Center </content>NEGA TIVE <content styleCode="Ana lics"> (NEGATIVE )</content> Color of Urine YELLOW <content [facility] styleCode="Lauren Liangs d">Color, Medical Urine Center </content>YELL OW <content styleCode="Ana lics"> (YELLOW )</content> UNK CLEAR <content [facility] styleCode="Lauren Liangs d">Urine Medical Clarity Center </content>SHABNAM R <content styleCode="Ana lics"> (CLEAR )</content> Protein NEGATIVE <content [facility] [Mass/volume] styleCode="Lauren Estrada in Urine by d">Urine Medical Test strip Protein Center </content>NEGA TIVE MG/DL<content styleCode="Ana lics"> (NEGATIVE MG/DL)</conten t> pH of Urine by 4.5-8.0 <content [facility] Test strip styleCode="Lauren Liangs d">Urine pH Medical </content>5.5 Center <content styleCode="Ana lics"> (4.5-8.0 )</content> Hemoglobin NEGATIVE <content [facility] [Presence] in styleCode="Lauren Estrada Urine by Test d">Urine Blood Medical strip </content>NEGA Center TIVE <content styleCode="Ana lics"> (NEGATIVE )</content> Specific 1.015-1.02 Below low normal <content [facility] gravity of 5 styleCode="Lauren Estrada Urine by Test d">Urine Medical strip Specific Center [place] </content><= 1.005 L<content styleCode="Ana lics"> (1.015-1.025 )</content> Ketones NEGATIVE <content [facility] [Mass/volume] styleCode="Lauren Estrada in Urine by d">Urine Medical Test strip Ketone Center </content>TRAC E MG/DL<content styleCode="Ana lics"> (NEGATIVE MG/DL)</conten t> Urobilinogen 0.2-1.0 <content [facility] [Units/volume] styleCode="Lauren Estrada in Urine by d">Urine Medical Test strip Urobilinogen Center </content>0.2 MG/DL<content styleCode="Ana lics"> (0.2-1.0 MG/DL)</conten t> Leukocyte NEGATIVE <content [facility] esterase styleCode="Lauren Liangs [Presence] in d">Urine Medical Urine by Test Leukocyte Center strip </content>NEGA TIVE <content styleCode="Ana lics"> (NEGATIVE )</content> Nitrite NEGATIVE <content [facility] [Presence] in styleCode="Lauren Estrada Urine by Test d">Urine Medical strip Nitrite Center </content>NEGA TIVE <content styleCode="Ana lics"> (NEGATIVE )</content> ID Date Data Source MROUTINECCDA.[id number] 06/27/2019 05:30:00 AM [facility] -0400 Name Value Range Interpretation Description Data Sup porting Code Source(s) Document(s ) Cannabinoids <content [facility] [Presence] in styleCode="Lauren Estrada Urine by Screen d">Cannabinoid Medical method >50 ng/mL s Center </content>NEGA TIVE NG/ML (Reference Range: not available)<br/ > ID Date Data Source Liver 06/27/2019 12:56:00 AM [facility] Center Profile.[id number] Name Value Range Interpretation Description Data Sup porting Code Source(s) Document(s ) Aspartate 17-59 <content [facility] aminotransferase styleCode="Bold"> [facility] hs [Enzymatic Aspartate Medical activity/volume] Aminotransferase Center in Serum or Plasma (AST) </content>41 IU/L<content styleCode="Italic s"> (17-59 IU/L)</content> Albumin 3.5-5.0 <content [facility] [Mass/volume] in styleCode="Bold"> [facility] hs Serum or Plasma Albumin Medical </content>4.0 Center G/DL<content styleCode="Italic s"> (3.5-5.0 G/DL)</content> UNK 0.0-0.3 <content [facility] styleCode="Bold"> Sean Bilirubin, Direct Medical </content>< 0.2 Center MG/DL<content styleCode="Italic s"> (0.0-0.3 MG/DL)</content> Alanine 7-50 <content [facility] aminotransferase styleCode="Bold"> Macario hs [Enzymatic Alanine Medical activity/volume] Aminotransferase Center in Serum or Plasma (ALT) </content>34 IU/L<content styleCode="Italic s"> (7-50 IU/L)</content> Bilirubin.total 0.2-1.3 <content [facility] [Mass/volume] in styleCode="Bold"> [facility] Serum or Plasma Bilirubin Total Medical </content>0.3 Center MG/DL<content styleCode="Italic s"> (0.2-1.3 MG/DL)</content> Alkaline 38-126 <content [facility] phosphatase styleCode="Bold"> Sean [Enzymatic Alkaline Medical activity/volume] Phosphatase (ALP) Cente r in Serum or Plasma </content>47 IU/L<content styleCode="Italic s"> (38-126 IU/L)</content> ID Date Data Source [id number] 06/27/2019 12:56:00 AM EST [facility] Name Value Range Interpretation Description Data Sup porting Code Source(s) Document(s ) Triglyceride < 150 Above high normal <content [facility] [Mass/volume] in styleCode="Lauren Sean Serum or Plasma d">Triglycerid [facility] </content>152 MG/DL H<content styleCode="Ana lics"> (< 150 MG/DL)</conten t> UNK < 100 Above high normal <content Saint styleCode="Lauren Sean d">LDL-Cholest [facility] </content>101 MG/DL H<content styleCode="Ana lics"> (< 100 MG/DL)</conten t> Cholesterol -<200 <content [facility] [Mass/volume] in styleCode="Lauren Sean Serum or Plasma d">Cholesterol Medical </content>180 Center MG/DL<content styleCode="Ana lics"> (-<200 MG/DL)</conten t> UNK > 60 Below low normal <content [facility] styleCode="Lauren Sean d">HDL- Medical Cholesterol Center </content>49 MG/DL L<content styleCode="Ana lics"> (> 60 MG/DL)</conten t> ID Date Data Source HematologyRou.[id number] 06/27/2019 12:56:00 AM EST [facility] 0500 Name Value Range Interpretation Description Data Sup porting Code Source(s) Document(s ) Erythrocyte mean 80.0-100 <content [facility] corpuscular .0 styleCode="Bold Sean volume [Entitic ">Mean Medical volume] by Corpuscular Center Automated count Volume </content>94.3 FL<content styleCode="Ital ics"> (80.0-100.0 FL)</content> Leukocytes 4.4-11.0 <content [facility] [#/volume] in styleCode="Bold Sean Blood by ">White Blood Medical Automated count Cell Count Center </content>6.78 KCUMM<content styleCode="Ital ics"> (4.4-11.0 KCUMM)</content > Erythrocytes 4.4-5.9 Below low normal <content [facility] [#/volume] in styleCode="Bold Sean Blood by ">Red Blood Medical Automated count Cell Count Center </content>4.06 MCUMM L<content styleCode="Ital ics"> (4.4-5.9 MCUMM)</content > Hematocrit 41.0-53. Below low normal <content [facility] [Volume 0 styleCode="Bold Sean Fraction] of ">Hematocrit Medical Blood by </content>38.3 Center Automated count % L<content styleCode="Ital ics"> (41.0-53.0 %)</content> Hemoglobin 13.5-17. Below low normal <content [facility] [Mass/volume] in 5 styleCode="Bold Sean Blood ">Hemoglobin Medical </content>12.7 Center G/DL L<content styleCode="Ital ics"> (13.5-17.5 G/DL)</content> Erythrocyte mean 32.0-37. <content [facility] corpuscular 0 styleCode="Bold Sean hemoglobin ">Mean Corpus. Medical concentration Hgb Center [Mass/volume] by Concentration Automated count (MCHC) </content>33.2 G/DL<content styleCode="Ital ics"> (32.0-37.0 G/DL)</content> Erythrocyte 11.5-14. Above high <content [facility] distribution 5 normal styleCode="Bold Sean width [Ratio] by ">Red Cell Medical Automated count Distribution Center Width </content>15.8 % H<content styleCode="Ital ics"> (11.5-14.5 %)</content> Erythrocyte mean 26.0-34. <content [facility] corpuscular 0 styleCode="Bold Sean hemoglobin ">Mean Medical [Entitic mass] Corposcular Center by Automated Hemoglobin count </content>31.3 PG<content styleCode="Ital ics"> (26.0-34.0 PG)</content> UNK 0 <content Saint styleCode="Bold Sean ">Nucleated Red Medical Blood Cell Center </content>0.0 /100<content styleCode="Ital ics"> (0 /100)</content> Platelets 130-400 <content [facility] [#/volume] in styleCode="Bold Sean Blood by ">Platelet Medical Automated count Count Center </content>242 KCUMM<content styleCode="Ital ics"> (130-400 KCUMM)</content > Platelet mean 8.0-11.0 Above high <content [facility] volume [Entitic normal styleCode="Bold Sean volume] in Blood ">Mean Platelet Medical by Automated Volume Center count </content>11.1 FL H<content styleCode="Ital ics"> (8.0-11.0 FL)</content> UNK 0.0 <content Saint styleCode="Bold Sean ">Nucleated Red Medical Blood Cell Center Count </content>0.00 KCUMM<content styleCode="Ital ics"> (0.0 KCUMM)</content > ID Date Data Source GFR(Creatinine).[id number] 06/27/2019 12:56:00 AM [facility] 0-0500 Name Value Range Interpretation Code Description Data Sulma rce(s) Supporting Document(s ) UNK > 60 <content [facility] styleCode="Bold"> Medical Cent er EGFR </content>106 GFR<content styleCode="Italic s"> (> 60 GFR)</content> ID Date Data Source [id number] 06/27/2019 12:56:[address] [facility] -0500 Name Value Range Interpretation Code Description Data Sulma rce(s) Supporting Document(s ) UNK 4.2-5.8 <content [facility] styleCode="Bold" Medical Cente r >Hemoglobin A1C </content>5.8 %<content styleCode="Itali cs"> (4.2-5.8 %)</content> ID Date Data Source [facility].[id number] 06/27/2019 12:56:00 AM [facility] Name Value Range Interpretation Description Data Sup porting Code Source(s) Document(s ) Sodium 137-145 <content [facility] [Moles/volume] in styleCode="Bold"> [facility] Serum or Plasma Sodium Medical </content>138 Center MEQ/L<content styleCode="Italic s"> (137-145 MEQ/L)</content> Potassium 3.5-5.3 <content [facility] [Moles/volume] in styleCode="Bold"> [facility] Serum or Plasma Potassium Medical </content>4.2 Center MEQ/L<content styleCode="Italic s"> (3.5-5.3 MEQ/L)</content> UNK 9-20 <content [facility] styleCode="Bold"> [facility] BUN </content>18 Medical MG/DL<content Center styleCode="Italic s"> (9-20 MG/DL)</content> Chloride 98-107 <content [facility] [Moles/volume] in styleCode="Bold"> [facility] Serum or Plasma Chloride Medical </content>107 Center MEQ/L<content styleCode="Italic s"> (98-107 MEQ/L)</content> Creatinine 0.5-1.3 <content [facility] [Mass/volume] in styleCode="Bold"> [facility] Serum or Plasma Creatinine Medical </content>0.8 Center MG/DL<content styleCode="Italic s"> (0.5-1.3 MG/DL)</content> Carbon dioxide, 22-30 <content [facility] total styleCode="Bold"> Sean [Moles/volume] in Carbon Dioxide Medical Serum or Plasma </content>26 Center MEQ/L<content styleCode="Italic s"> (22-30 MEQ/L)</content> Glucose 74-106 <content [facility] [Mass/volume] in styleCode="Bold"> [facility] Serum or Plasma Glucose Medical </content>91 Center MG/DL<content styleCode="Italic s"> (74-106 MG/DL)</content> Calcium 8.4-10. <content [facility] [Mass/volume] in 2 styleCode="Bold"> [facility] Serum or Plasma Calcium Medical </content>9.6 Center MG/DL<content styleCode="Italic s"> (8.4-10.2 MG/DL)</content> Aspartate 17-59 <content [facility] aminotransferase styleCode="Bold"> [facility] hs [Enzymatic Aspartate Medical activity/volume] Aminotransferase Center in Serum or Plasma (AST) </content>41 IU/L<content styleCode="Italic s"> (17-59 IU/L)</content> Alanine 7-50 <content [facility] aminotransferase styleCode="Bold"> [facility] hs [Enzymatic Alanine Medical activity/volume] Aminotransferase Center in Serum or Plasma (ALT) </content>34 IU/L<content styleCode="Italic s"> (7-50 IU/L)</content> UNK > 60 <content [facility] styleCode="Bold"> [facility] EGFR Medical </content>106 Center GFR<content styleCode="Italic s"> (> 60 GFR)</content> Alkaline 38-126 <content [facility] phosphatase styleCode="Bold"> [facility] [Enzymatic Alkaline Medical activity/volume] Phosphatase (ALP) Cente r in Serum or Plasma </content>47 IU/L<content styleCode="Italic s"> (38-126 IU/L)</content> Albumin 3.5-5.0 <content [facility] [Mass/volume] in styleCode="Bold"> [facility] Serum or Plasma Albumin Medical </content>4.0 Center G/DL<content styleCode="Italic s"> (3.5-5.0 G/DL)</content> Bilirubin.total 0.2-1.3 <content [facility] [Mass/volume] in styleCode="Bold"> [facility] Serum or Plasma Bilirubin Total Medical </content>0.3 Center MG/DL<content styleCode="Italic s"> (0.2-1.3 MG/DL)</content> Procedure Social History Code Duration Value Status Description Data Source(s ) Smoking 06/27/2019 Denies Ever completed Denies Ever Smoked [facility] 06:00:00 AM EST Smoked Medical C enter Smoking 06/27/2019 Denies Ever completed Denies Ever Smoked [facility] Sean 12:03:00 AM EST Smoked Medical C enter Vital Signs ID Date Data Source UNK Name Value Range Interpretation Code Description Data Source(s) Diastolic blood 85 mmHg 85 mmHg [facility] Systolic blood 131 mmHg 131 mmHg [facility] Respiratory rate 18 bpm 18 bpm [facility] Heart rate 72 bpm 72 bpm [facility] Body temperature 97.5 Fahrenheit 97.5 Fahrenh t [facility] Heart rate 70 bpm 70 bpm [facility] Body temperature 97.5 Fahrenheit 97.5 Fahrenhei t [facility] Diastolic blood 92 mmHg 92 mmHg [facility] Systolic blood 138 mmHg 138 mmHg [facility] Respiratory rate 18 bpm 18 bpm [facility] Diastolic blood 105 mmHg 105 mmHg [facility] Systolic blood 150 mmHg 150 mmHg [facility] Respiratory rate 18 bpm 18 bpm [facility] Heart rate 86 bpm 86 bpm [facility] Body temperature 97.5 Fahrenheit 97.5 Fahrenhei t [facility] Diastolic blood 86 mmHg 86 mmHg [facility] Systolic blood 140 mmHg 140 mmHg [facility] Respiratory rate 18 bpm 18 bpm [facility] Heart rate 86 bpm 86 bpm [facility] Body temperature 97.5 Fahrenheit 97.5 Fahrenhei t [facility] Respiratory rate 18 bpm 18 bpm [facility] Body temperature 98.2 Fahrenheit 98.2 Fahrenhei t [facility] Diastolic blood 83 mmHg 83 mmHg [facility] Systolic blood 129 mmHg 129 mmHg [facility] Heart rate 87 bpm 87 bpm [facility] Diastolic blood 67 mmHg 67 mmHg [facility] Systolic blood 120 mmHg 120 mmHg [facility] Heart rate 83 bpm 83 bpm [facility] Diastolic blood 84 mmHg 84 mmHg [facility] Systolic blood 121 mmHg 121 mmHg [facility] Respiratory rate 18 bpm 18 bpm [facility] Heart rate 79 bpm 79 bpm [facility] Body temperature 97.2 Fahrenheit 97.2 Fahrenhei t [facility] Diastolic blood 88 mmHg 88 mmHg [facility] Systolic blood 145 mmHg 145 mmHg [facility] Respiratory rate 18 bpm 18 bpm [facility] Heart rate 80 bpm 80 bpm [facility] Body temperature 98.4 Fahrenheit 98.4 Fahrenhei t [facility] Diastolic blood 78 mmHg 78 mmHg [facility] Systolic blood 124 mmHg 124 mmHg [facility] Respiratory rate 18 bpm 18 bpm [facility] Heart rate 76 bpm 76 bpm [facility] Body temperature 97.8 Fahrenheit 97.8 Fahrenhei t [facility] Diastolic blood 80 mmHg 80 mmHg [facility] Systolic blood 117 mmHg 117 mmHg [facility] Respiratory rate 18 bpm 18 bpm [facility] Heart rate 72 bpm 72 bpm [facility] Body temperature 97.8 Fahrenheit 97.8 Fahrenhei t [facility] Diastolic blood 79 mmHg 79 mmHg [facility] Systolic blood 114 mmHg 114 mmHg [facility] Respiratory rate 18 bpm 18 bpm [facility] Heart rate 79 bpm 79 bpm [facility] Body temperature 98.1 Fahrenheit 98.1 Fahrenhei t [facility] Diastolic blood 79 mmHg 79 mmHg [facility] Systolic blood 122 mmHg 122 mmHg [facility] Respiratory rate 18 bpm 18 bpm [facility] Heart rate 73 bpm 73 bpm [facility] Body temperature 98.1 Fahrenheit 98.1 Fahrenhei t [facility] Diastolic blood 86 mmHg 86 mmHg [facility] Systolic blood 135 mmHg 135 mmHg [facility] Heart rate 82 bpm 82 bpm [facility] Diastolic blood 88 mmHg 88 mmHg [facility] Systolic blood 151 mmHg 151 mmHg [facility] Respiratory rate 20 bpm 20 bpm [facility] Heart rate 77 bpm 77 bpm [facility] Body temperature 98.2 Fahrenheit 98.2 Fahrenhei t [facility] Body temperature 37.844705 Malia 37.070839 Malia [facility] Respiratory rate 20 /min 20 /min [facility] Oxygen 99 % 99 % [facility] saturation in Medical Arterial blood Center by Pulse oximetry Heart rate 71 /min 71 /min [facility] Diastolic blood 59 mm[Hg] 59 mm[Hg] [facility] [place] Systolic blood 99 mm[Hg] 99 mm[Hg] [facility] Body temperature 36.903417 Malia 36.243317 Malia [facility] Respiratory rate 18 /min 18 /min [facility] Oxygen 98 % 98 % [facility] saturation in Medical Arterial blood Center by Pulse oximetry Heart rate 75 /min 75 /min [facility] Diastolic blood 70 mm[Hg] 70 mm[Hg] [facility] pressure Medical [place] Systolic blood 126 mm[Hg] 126 mm[Hg] [facility] [place] Body temperature 36.272955 Malia 36.837699 Malia [facility] Respiratory rate 18 /min 18 /min [facility] Oxygen 98 % 98 % [facility] saturation in Medical Arterial blood Center by Pulse oximetry Heart rate 80 /min 80 /min [facility] Diastolic blood 75 mm[Hg] 75 mm[Hg] [facility] pressure Medical Center Systolic blood 130 mm[Hg] 130 mm[Hg] [facility] Diastolic blood 82 mmHg 82 mmHg [facility] Systolic blood 133 mmHg 133 mmHg [facility] Respiratory rate 18 bpm 18 bpm [facility] Heart rate 76 bpm 76 bpm [facility] Diastolic blood 80 mmHg 80 mmHg [facility] Systolic blood 137 mmHg 137 mmHg [facility] Respiratory rate 18 bpm 18 bpm [facility] Heart rate 76 bpm 76 bpm [facility] Body temperature 97.8 Fahrenheit 97.8 Fahrenhei t [facility] Diastolic blood 89 mmHg 89 mmHg [facility] Systolic blood 145 mmHg 145 mmHg [facility] Respiratory rate 18 bpm 18 bpm [facility] Heart rate 80 bpm 80 bpm [facility] Body weight 197 lbs 197 lbs [facility] Diastolic blood 84 mmHg 84 mmHg [facility] Systolic blood 144 mmHg 144 mmHg [facility] Respiratory rate 18 bpm 18 bpm [facility] Heart rate 81 bpm 81 bpm [facility] Body temperature 97.4 Fahrenheit 97.4 Fahrenhei t [facility] Diastolic blood 65 mmHg 65 mmHg [facility] Systolic blood 115 mmHg 115 mmHg [facility] Respiratory rate 18 bpm 18 bpm [facility] Heart rate 89 bpm 89 bpm [facility] Diastolic blood 72 mmHg 72 mmHg [facility] Systolic blood 114 mmHg 114 mmHg [facility] Respiratory rate 18 bpm 18 bpm [facility] Heart rate 87 bpm 87 bpm [facility] Body temperature 96.8 Fahrenheit 96.8 Fahrenhei t [facility] Diastolic blood 70 mmHg 70 mmHg [facility] Systolic blood 106 mmHg 106 mmHg [facility] Respiratory rate 18 bpm 18 bpm [facility] Heart rate 91 bpm 91 bpm [facility] Diastolic blood 70 mmHg 70 mmHg [facility] Systolic blood 109 mmHg 109 mmHg [facility] Respiratory rate 18 bpm 18 bpm [facility] Heart rate 94 bpm 94 bpm [facility] Body temperature 96.2 Fahrenheit 96.2 Fahrenhei t [facility] Diastolic blood 78 mmHg 78 mmHg [facility] Systolic blood 116 mmHg 116 mmHg [facility] Respiratory rate 18 bpm 18 bpm [facility] Heart rate 85 bpm 85 bpm [facility] Diastolic blood 89 mmHg 89 mmHg [facility] Systolic blood 151 mmHg 151 mmHg [facility] Respiratory rate 18 bpm 18 bpm [facility] Heart rate 78 bpm 78 bpm [facility] Body temperature 97.1 Fahrenheit 97.1 Fahrenhei t [facility] Diastolic blood 91 mmHg 91 mmHg [facility] Systolic blood 140 mmHg 140 mmHg [facility] Respiratory rate 18 bpm 18 bpm [facility] Heart rate 86 bpm 86 bpm [facility] Diastolic blood 92 mmHg 92 mmHg [facility] Systolic blood 140 mmHg 140 mmHg [facility] Respiratory rate 18 bpm 18 bpm [facility] Heart rate 79 bpm 79 bpm [facility] Body temperature 95.8 Fahrenheit 95.8 Fahrenhei t [facility] Diastolic blood 89 mmHg 89 mmHg [facility] Systolic blood 139 mmHg 139 mmHg [facility] Respiratory rate 18 bpm 18 bpm [facility] Heart rate 91 bpm 91 bpm [facility] Diastolic blood 100 mmHg 100 mmHg [facility] Systolic blood 135 mmHg 135 mmHg [facility] Respiratory rate 18 bpm 18 bpm [facility] Heart rate 85 bpm 85 bpm [facility] Body temperature 96.5 Fahrenheit 96.5 Fahrenhei t [facility] Diastolic blood 89 mmHg 89 mmHg [facility] Systolic blood 133 mmHg 133 mmHg [facility] Respiratory rate 18 bpm 18 bpm [facility] Heart rate 97 bpm 97 bpm [facility] Diastolic blood 96 mmHg 96 mmHg [facility] Systolic blood 151 mmHg 151 mmHg [facility] Respiratory rate 18 bpm 18 bpm [facility] Heart rate 87 bpm 87 bpm [facility] Body temperature 96.2 Fahrenheit 96.2 Fahrenhei t [facility] Diastolic blood 73 mmHg 73 mmHg [facility] Systolic blood 107 mmHg 107 mmHg [facility] Respiratory rate 18 bpm 18 bpm [facility] Heart rate 84 bpm 84 bpm [facility] Body weight 176 lbs 176 lbs [facility] Diastolic blood 82 mmHg 82 mmHg [facility] Systolic blood 131 mmHg 131 mmHg [facility] Respiratory rate 18 bpm 18 bpm [facility] Heart rate 76 bpm 76 bpm [facility] Body temperature 97.8 Fahrenheit 97.8 Fahrenhei t [facility] ID Date Data Source [id number] 07/07/2019 10:33:15 PM EDT [facility] Name Value Range Interpretation Code Description Data Source(s) Body weight Measured 197 lb 197 lb [facility] ID Date Data Source [id number] 06/27/2019 03:34:24 PM EST [facility] Name Value Range Interpretation Code Description Data Source(s) Body weight Measured 197 lb 197 lb [facility]
[2020-01-29 16:26] VITALS: BMI 33.9
--- NOTE | 2020-01-29 17:02 | BHS.RME ---
Substance Use & Tx History - Substance Use History Alcohol Substance amount: 7 cans beer, 2 pints vodka Frequency of use: Daily Substance route: Oral Date of Last Use: 01/28/20 Cocaine-Crack Substance amount: $80 Frequency of use: Daily Substance route: Smoking Date of Last Use: 01/28/20 - Last Treatment Date of last treatment: 06/08/2018 Where was last treatment: Detox Physical/Psych/Mental Status - Behavior General Behavior: Increased activity (restlessness, agitation) Eye Contact: Normal Other Behaviors: Mannerisms - Cooperativeness Cooperativeness: Cooperative - Thinking Thought Processes: Logical Thought content: Future oriented - Physical Health Problems Is patient presently having any pain?: No Does patient presently have any injuries (include location): No Does patient currently have a fever: No CIWA Nausea/Vomitin Muscle Tremors: 2 Anxiety: 2 Agitation: 2 Paroxysmal Sweats: 2 Orientation: 0-Oriented Tacttile Disturbances: 2-Mild Itch/Numbness/Burn Auditory Disturbances: 0-None Visual Disturbances: 0-None Headache: 2-Mild CIWA-Ar Total Score: 14
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
[2020-01-29] MEDS ORDERED: MAGNESIUM HYDROX 2400MG/30ML ORAL SUSPENSION 30 ML CUP PO PRN (17:10)
[2020-01-29] MEDS ORDERED: MAG HYDROX/AL HYDROX/SIMETH 30 ML UNIT-DOSE CUP PO PRN (17:10)
[2020-01-29] MEDS ORDERED: ACETAMINOPHEN 325 MG TABLET (FP) PO PRN ×2 (17:10)
[2020-01-29] MEDS ORDERED: MAGNESIUM CITRATE 300 ML BOTTLE PO PRN (17:10)
[2020-01-29] MEDS ORDERED: ONDANSETRON *ODT* 4 MG TABLET SL PRN (17:10)
[2020-01-29] MEDS ORDERED: METHOCARBAMOL 500 MG TABLET PO PRN (17:10)
[2020-01-29] MEDS ORDERED: MENTHOL/PHENOL 1 EACH UD MM PRN (17:10)
[2020-01-29] MEDS ORDERED: chlordiazePOXIDE HCL 25 MG CAPSULE PO PRN (17:10)
[2020-01-29] MEDS ORDERED: hydrOXYzine PAMOATE 25 MG CAPSULE (FP) PO PRN (17:10)
[2020-01-29] MEDS ORDERED: IBUPROFEN 400 MG TABLET (FP) PO PRN (17:10)
[2020-01-29] MEDS ORDERED: BISMUTH SUBSALICYLATE 524 MG/30 ML UD PO PRN (17:10)
[2020-01-29] MEDS ORDERED: chlordiazePOXIDE HCL 25 MG CAPSULE PO ONE (17:10)
[2020-01-29] MEDS ORDERED: NICOTINE POLACRILEX 2 MG GUM BUC PRN (17:10)
--- OUTSIDE RECORDS SUMMARY | 2020-01-29 17:52 | XMS ---
:1960 Author Organization [facility] Care Team Providers Name Role Phone ED STAFF YUE DÍAZ Unavailable Unavailable [id number], [id number] Unavailable Unavailable ED STAFF PHYSICIAN, STAFF Unavailable Unavailable DENNIS ACEVES MD Unavailable Unavailable Bro, Roberto Carlos Unavailable Unavailable Bro, C Unavailable Unavailable [place], C Unavailable Unavailable [place], C Unavailable Unavailable Re-disclosure Warning The records [...] is protected by Article 27-F of the [facility] Public Health law. If you continue you may haveaccess to information: Regarding HIV / AIDS; Provided by facilities licensed or operated by the [facility] Office of Mental Health; or Provided by the [facility] Office for People With Developmental Disabilities. If such information is present, then the following [facility] mandated warning applies: This information has been [...] law may result in a fine or mcfp sentence or both. A general authorization for the release of medical or other information is NOT sufficient authorization for further disclosure. Allergies and Adverse Reactions Type Description Substance Reaction Status Data Source(s ) Food allergy No Known Food No Known Food [facility] Drug allergy No Known Drug No Known Drug [facility] Encounters Encounter Providers Location Date Indications Data Source(s ) Inpatient Attender: DENNIS [facility] 06/27/2019 [facility] YOLAAdmitter: Martha 03:07:00 PM [facility] 07/07/2019 10:33:00 PM EDT Patient discharged. Outpatient [facility] 06/27/2019 12:59:00 PM [facility] - [address] [place] [address] 03:34:00 PM EST Patient discharged. Emergency Attender: YUE ED STAFF H 06/26/2019 11:43:00 PM [facility] PHYSICIANAttender: STAFF ED [facility] - 06/27/2019 Medical Center STAFF PHYSICIANAdmitter: 03:14:00 PM [facility] ED STAFF PHYSICIANReferrer: STAFF ED STAFF PHYSICIAN Patient discharged. Attender: [id number] 2017 10:24:00 [facility] Hospital Attender: [id number] 2017 [facility] Hospital Attender: [id number] 2017 08:27:00 [facility] PM EDT Hospital Attender: [id number] 2017 08:01:00 [facility] PM EDT Hospital Attender: [id number] 2008 05:58:00 [facility] PM EDT Hospital Attender: [id number] 2006 07:00:00 [facility] PM EDT Hospital Attender: [id number] 2006 06:00:00 [facility] PM EDT Hospital Attender: [id number] 2006 06:00:00 [facility] PM EDT Hospital Attender: [id number] 2006 05:00:00 [facility] PM EDT Hospital Attender: [id number] 2006 02:00:00 [facility] PM EDT Hospital Medications Medication Brand Start Product Dose Route Administrative Pharmacy [facility] Indications Reaction Description Data Name Date Form Instructions Instructions Source(s) Enalapril Enalap 03/03/ ORAL complet [facility] 2017 ed [facility] Oral 10 MG 12:00: Hospital Tablet ORAL 00 AM Tablet EST Insurance Providers Payer name Policy type Policy ID Covered Covered democrat's Policy P alethea / Coverage democrat ID relationship to Silva Inf ormation type silva [employer] FIRST [id number] SP [id number] R SELF PAY 0 Self 0 MEDICAID INP [id number] Self [id number] R [facility]CH [facility] [id number] Self [id number] FIRST HMO MARVIN O [id number] 01 [id number] [employer] W [id number] 01 [id number] [employer] MEDICAID [id number] SP [id number] Problems, Conditions, and Diagnoses Code Display Name [...] disorder F25.9 Schizoaffective SCHIZOAFFECTIVE Diagnosis 06/26/2019 Vanda Estrdaa disorder, DISORDER, 11:43:00 PM Medical unspecified UNSPECIFIED EST Center R45.851 Suicidal ideations SUICIDAL IDEATIONS Diagnosis 0 [facility] 11:43:00 PM Medical EST Center 295.30 PARANOID TYPE Schizophrenia, Diagnosis 01/22/2001 [facility] SCHIZOPHRENIA paranoid type 10:15:00 AM [facility] UNSPECIFIED STATE EDT Hospita l Results ID Date Data Source [id number] 01/05/2020 10:02:00 AM EDT [facility] Name Value Range Interpretation Code Description Data Sulma rce(s) Supporting Document(s ) SARS-CoV-2 [facility] RNA Resp Health System Ql TAO+probe This lab was ordered by [facility] a nd reported by [facility]. ID Date Data Source [id number] 11/06/2019 09:14:00 PM EDT [facility] Name Value Range Interpretation Code Description Data Sulma rce(s) Supporting Document(s ) SARS-CoV-2 [facility] Ql TAO+probe This lab was ordered by [facility] and reported by [facility]. ID Date Data Source [id number] 10/27/2019 01:18:00 PM EDT [facility] Name Value Range Interpretation Code Description Data Sulma rce(s) Supporting Document(s ) SARS-CoV-2 [facility] Ql TAO+probe This lab was ordered by [facility] a nd reported by [facility]. ID Date Data Source [id number] 10/12/2019 10:48:00 AM EDT [facility] Name Value Range Interpretation Code Description Data Sulma rce(s) Supporting Document(s ) SARS-CoV-2 [facility] RNA Resp Ql TAO+probe This lab was ordered by [facility] a nd reported by [facility]. ID Date Data Source [id number] 09/22/2019 11:56:00 PM EDT [facility] Name Value Range Interpretation Description Data Sup porting Code Source(s) Document(s ) SARS [facility] Coronavirus 2 RNA Presence Respiratory Specimen TAO Probe Detection This lab was ordered by [facility] and reported by [facility]. ID Date Data Source [id number] 09/22/2019 03:16:00 PM EDT [facility] Name Value Range Interpretation Code Description Data Sulma rce(s) Supporting Document(s ) SARS-CoV-2 [facility] RNA Resp Ql TAO+probe This lab was ordered by [facility] and reported by [facility]. ID Date Data Source [id number] 09/17/2019 03:52:00 AM EDT [facility] Name Value Range Interpretation Code Description Data Sulma rce(s) Supporting Document(s ) SARS-CoV-2 [facility] RNA Resp Health System Ql TAO+probe This lab was ordered by [facility] a nd reported by [facility]. ID Date Data Source [id number] 08/27/2019 08:58:00 PM EDT [facility] Name Value Range Interpretation Description Data Sup porting Code Source(s) Document(s ) SARS-CoV-2 ID [facility] NOW REPORTABLE This lab was ordered by [facility] and reported by [facility]. ID Date Data Source [id number] 08/24/2019 07:00:00 AM EDT [facility] Name Value Range Interpretation Code Description Data Sulma rce(s) Supporting Document(s ) SARS-COV-2 [facility] RNA RESP Diagnostics QL TAO+PROBE This lab was ordered by [facility] a nd reported by [facility]. ID Date Data Source Urinalysis.[id number] 06/27/2019 05:30:00 AM EST [facility] 0 Name Value Range Interpretation Description Data [...] by Test d">Urine Medical strip Specific [facility] [place] </content><= 1.005 L<content styleCode="Ana lics"> (1.015-1.025 )</content> [...] lics"> (NEGATIVE )</content> ID Date Data Source MROUTINECCDA.[id number] 06/27/2019 05:30:00 AM [facility] -0400 Name Value Range Interpretation Description Data Sup porting Code Source(s) Document(s ) Cannabinoids <content Saint [Presence] in styleCode="Lauren Estrada Urine by Screen d">Cannabinoid Medical method >50 ng/mL s Center </content>NEGA TIVE NG/ML (Reference Range: not available)<br/ > ID Date Data Source Liver 06/27/2019 12:56:[address] [facility] [id number] Name Value Range Interpretation Description Data Sup [...] s"> (38-126 IU/L)</content> ID Date Data Source [id number] 06/27/2019 12:56:00 AM EST [facility] Name Value Range Interpretation Description Data Sup porting Code Source(s) Document(s ) Triglyceride < 150 Above high normal <content Saint [Mass/volume] in styleCode="Lauren Sean Serum or Plasma d">Triglycerid [facility] </content>152 MG/DL H<content styleCode="Ana lics"> (< 150 MG/DL)</conten t> UNK < 100 Above high normal <content Saint styleCode="Lauren Sean d">LDL-Cholest [facility] </content>101 MG/DL H<content styleCode="Ana lics"> (< 100 MG/DL)</conten t> Cholesterol -<200 <content [facility] [Mass/volume] in styleCode="Lauren Sean Serum or Plasma d">Cholesterol Medical </content>180 Center MG/DL<content styleCode="Ana lics"> (-<200 MG/DL)</conten t> UNK > 60 Below low normal <content Saint styleCode="Lauren Sean d">HDL- Medical Cholesterol Center </content>49 MG/DL L<content styleCode="Ana lics"> (> 60 MG/DL)</conten t> ID Date Data Source HematologyRou.[id number] 06/27/2019 12:56:00 AM EST [facility] [...] (0.0 KCUMM)</content > ID Date Data Source GFR(Creatinine).[id number] 06/27/2019 12:56:00 AM [facility] 0-0500 Name Value Range Interpretation Code Description Data Sulma rce(s) Supporting Document(s ) UNK > 60 <content [facility] styleCode="Bold"> Medical Cent er EGFR </content>106 GFR<content styleCode="Italic s"> (> 60 GFR)</content> ID Date Data Source COLE.[id number] 06/27/2019 12:56:00 AM EST [facility] -0500 Name Value Range Interpretation Code Description Data Sulma rce(s) Supporting Document(s ) UNK 4.2-5.8 <content [facility] styleCode="Bold" Medical Cente r >Hemoglobin A1C </content>5.8 %<content styleCode="Itali cs"> (4.2-5.8 %)</content> ID Date Data Source [id number] 06/27/2019 12:56:00 AM [facility] Name Value Range Interpretation Description Data Sup porting Code Source(s) Document(s ) Sodium 137-145 <content Saint [Moles/volume] in styleCode="Bold"> [facility] Serum or Plasma Sodium Medical </content>138 Center MEQ/L<content styleCode="Italic s"> (137-145 MEQ/L)</content> Potassium 3.5-5.3 <content [facility] [Moles/volume] in styleCode="Bold"> [facility] Serum or Plasma Potassium Medical </content>4.2 Center MEQ/L<content styleCode="Italic s"> (3.5-5.3 MEQ/L)</content> UNK 9-20 <content [facility] styleCode="Bold"> [facility] BUN </content>18 Medical MG/DL<content Center styleCode="Italic s"> (9-20 MG/DL)</content> Chloride 98-107 <content [facility] [Moles/volume] in styleCode="Bold"> [facility] Serum or Plasma Chloride Medical </content>107 [...] 06/27/2019 Denies Ever completed Denies Ever Smoked [facility] Sean 12:03:00 AM EST Smoked Medical C enter Vital Signs ID Date Data Source UNK Name Value Range Interpretation Code Description Data Source(s) Diastolic blood 85 mmHg 85 mmHg [facility] Systolic blood 131 mmHg 131 mmHg [facility] Respiratory rate 18 bpm 18 bpm [facility] Heart rate 72 bpm 72 bpm [facility] Body temperature 97.5 Fahrenheit 97.5 Fahrenh t [facility] Heart rate 70 bpm 70 bpm [facility] Body temperature 97.5 Fahrenheit 97.5 Fahrenhei t [facility] Diastolic blood 92 mmHg 92 mmHg [facility] Systolic blood 138 mmHg 138 mmHg [facility] Respiratory rate 18 bpm 18 bpm [facility] Diastolic blood 105 mmHg 105 mmHg [facility] Systolic blood 150 mmHg 150 mmHg [facility] Respiratory rate 18 bpm 18 bpm [facility] Heart rate 86 bpm 86 bpm [facility] Body temperature 97.5 Fahrenheit 97.5 Fahrenhei t [facility] Diastolic blood 86 mmHg 86 mmHg [facility] Systolic blood 140 mmHg 140 mmHg [facility] Respiratory rate 18 bpm 18 bpm [facility] Heart rate 86 bpm 86 bpm [facility] Body temperature 97.5 Fahrenheit 97.5 Fahrenhei t [facility] Respiratory rate 18 bpm 18 bpm [facility] Body temperature 98.2 Fahrenheit 98.2 Fahrenhei t [facility] Diastolic blood 83 mmHg 83 mmHg [facility] Systolic blood 129 mmHg 129 mmHg [facility] Heart rate 87 bpm 87 bpm [facility] Diastolic blood 67 mmHg 67 mmHg [facility] Systolic blood 120 mmHg 120 mmHg [facility] Heart rate 83 bpm 83 bpm [facility] Diastolic blood 84 mmHg 84 mmHg [facility] Systolic blood 121 mmHg 121 mmHg [facility] Respiratory rate 18 bpm 18 bpm [facility] Heart rate 79 bpm 79 bpm [facility] Body temperature 97.2 Fahrenheit 97.2 Fahrenhei t [facility] Diastolic blood 88 mmHg 88 mmHg [facility] Systolic blood 145 mmHg 145 mmHg [facility] Respiratory rate 18 bpm 18 bpm [facility] Heart rate 80 bpm 80 bpm [facility] Body temperature 98.4 Fahrenheit 98.4 Fahrenhei t [facility] Diastolic blood 78 mmHg 78 mmHg [facility] Systolic blood 124 mmHg 124 mmHg [facility] Respiratory rate 18 bpm 18 bpm [facility] Heart rate 76 bpm 76 bpm [facility] Body temperature 97.8 Fahrenheit 97.8 Fahrenhei t [facility] Diastolic blood 80 mmHg 80 mmHg [facility] Systolic blood 117 mmHg 117 mmHg [facility] Respiratory rate 18 bpm 18 bpm [facility] Heart rate 72 bpm 72 bpm [facility] Body temperature 97.8 Fahrenheit 97.8 Fahrenhei t [facility] Diastolic blood 79 mmHg 79 mmHg [facility] Systolic blood 114 mmHg 114 mmHg [facility] Respiratory rate 18 bpm 18 bpm [facility] Heart rate 79 bpm 79 bpm [facility] Body temperature 98.1 Fahrenheit 98.1 Fahrenhei t [facility] Diastolic blood 79 mmHg 79 mmHg [facility] Systolic blood 122 mmHg 122 mmHg [facility] Respiratory rate 18 bpm 18 bpm [facility] Heart rate 73 bpm 73 bpm [facility] Body temperature 98.1 Fahrenheit 98.1 Fahrenhei t [facility] Diastolic blood 86 mmHg 86 mmHg [facility] Systolic blood 135 mmHg 135 mmHg [facility] Heart rate 82 bpm 82 bpm [facility] Diastolic blood 88 mmHg 88 mmHg [facility] Systolic blood 151 mmHg 151 mmHg [facility] Respiratory rate 20 bpm 20 bpm [facility] Heart rate 77 bpm 77 bpm [facility] Body temperature 98.2 Fahrenheit 98.2 Fahrenhei t [facility] Body temperature 37.358464 Malia 37.099067 [facility] Respiratory rate 20 /min 20 /min [facility] Oxygen 99 % 99 % [facility] saturation in Medical Arterial blood Center by Pulse oximetry Heart rate 71 /min 71 /min [facility] Diastolic blood 59 mm[Hg] 59 mm[Hg] [facility] [place] Systolic blood 99 mm[Hg] 99 mm[Hg] [facility] Body temperature 36.978474 Malia 36.841751 [address]ia [facility] Respiratory rate 18 /min 18 /min [facility] Oxygen 98 % 98 % [facility] saturation in Medical Arterial blood Center by Pulse oximetry Heart rate 75 /min 75 /min [facility] Diastolic blood 70 mm[Hg] 70 mm[Hg] [facility] pressure Medical [place] Systolic blood 126 mm[Hg] 126 mm[Hg] [facility] [place] Body temperature 36.190437 Malia 36.807585 [address]ia [facility] Respiratory rate 18 /min 18 /min [facility] Oxygen 98 % 98 % [facility] saturation in Medical Arterial blood Center by Pulse oximetry Heart rate 80 /min 80 /min [facility] Diastolic blood 75 mm[Hg] 75 mm[Hg] [facility] pressure [facility] Center Systolic blood 130 mm[Hg] 130 mm[Hg] [facility] Diastolic blood 82 mmHg 82 mmHg [facility] Systolic blood 133 mmHg 133 mmHg [facility] Respiratory rate 18 bpm 18 bpm [facility] Heart rate 76 bpm 76 bpm [facility] Diastolic blood 80 mmHg 80 mmHg [facility] Systolic blood 137 mmHg 137 mmHg [facility] Respiratory rate 18 bpm 18 bpm [facility] Heart rate 76 bpm 76 bpm [facility] Body temperature 97.8 Fahrenheit 97.8 Fahrenhei t [facility] Diastolic blood 89 mmHg 89 mmHg [facility] Systolic blood 145 mmHg 145 mmHg [facility] Respiratory rate 18 bpm 18 bpm [facility] Heart rate 80 bpm 80 bpm [facility] Body weight 197 lbs 197 lbs [facility] Diastolic blood 84 mmHg 84 mmHg [facility] Systolic blood 144 mmHg 144 mmHg [facility] Respiratory rate 18 bpm 18 bpm [facility] Heart rate 81 bpm 81 bpm [facility] Body temperature 97.4 Fahrenheit 97.4 Fahrenhei t [facility] Diastolic blood 65 mmHg 65 mmHg [facility] Systolic blood 115 mmHg 115 mmHg [facility] Respiratory rate 18 bpm 18 bpm [facility] Heart rate 89 bpm 89 bpm [facility] Diastolic blood 72 mmHg 72 mmHg [facility] Systolic blood 114 mmHg 114 mmHg [facility] Respiratory rate 18 bpm 18 bpm [facility] Heart rate 87 bpm 87 bpm [facility] Body temperature 96.8 Fahrenheit 96.8 Fahrenhei t [facility] Diastolic blood 70 mmHg 70 mmHg [facility] Systolic blood 106 mmHg 106 mmHg [facility] Respiratory rate 18 bpm 18 bpm [facility] Heart rate 91 bpm 91 bpm [facility] Diastolic blood 70 mmHg 70 mmHg [facility] Systolic blood 109 mmHg 109 mmHg [facility] Respiratory rate 18 bpm 18 bpm [facility] Heart rate 94 bpm 94 bpm [facility] Body temperature 96.2 Fahrenheit 96.2 Fahrenhei t [facility] Diastolic blood 78 mmHg 78 mmHg [facility] Systolic blood 116 mmHg 116 mmHg [facility] Respiratory rate 18 bpm 18 bpm [facility] Heart rate 85 bpm 85 bpm [facility] Diastolic blood 89 mmHg 89 mmHg [facility] Systolic blood 151 mmHg 151 mmHg [facility] Respiratory rate 18 bpm 18 bpm [facility] Heart rate 78 bpm 78 bpm [facility] Body temperature 97.1 Fahrenheit 97.1 Fahrenhei t [facility] Diastolic blood 91 mmHg 91 mmHg [facility] Systolic blood 140 mmHg 140 mmHg [facility] Respiratory rate 18 bpm 18 bpm [facility] Heart rate 86 bpm 86 bpm [facility] Diastolic blood 92 mmHg 92 mmHg [facility] Systolic blood 140 mmHg 140 mmHg [facility] Respiratory rate 18 bpm 18 bpm [facility] Heart rate 79 bpm 79 bpm [facility] Body temperature 95.8 Fahrenheit 95.8 Fahrenhei t [facility] Diastolic blood 89 mmHg 89 mmHg [facility] Systolic blood 139 mmHg 139 mmHg [facility] Respiratory rate 18 bpm 18 bpm [facility] Heart rate 91 bpm 91 bpm [facility] Diastolic blood 100 mmHg 100 mmHg [facility] Systolic blood 135 mmHg 135 mmHg [facility] Respiratory rate 18 bpm 18 bpm [facility] Heart rate 85 bpm 85 bpm [facility] Body temperature 96.5 Fahrenheit 96.5 Fahrenhei t [facility] Diastolic blood 89 mmHg 89 mmHg [facility] Systolic blood 133 mmHg 133 mmHg [facility] Respiratory rate 18 bpm 18 bpm [facility] Heart rate 97 bpm 97 bpm [facility] Diastolic blood 96 mmHg 96 mmHg [facility] Systolic blood 151 mmHg 151 mmHg [facility] Respiratory rate 18 bpm 18 bpm [facility] Heart rate 87 bpm 87 bpm [facility] Body temperature 96.2 Fahrenheit 96.2 Fahrenhei t [facility] Diastolic blood 73 mmHg 73 mmHg [facility] Systolic blood 107 mmHg 107 mmHg [facility] Respiratory rate 18 bpm 18 bpm [facility] Heart rate 84 bpm 84 bpm [facility] Body weight 176 lbs 176 lbs [facility] Diastolic blood 82 mmHg 82 mmHg [facility] Systolic blood 131 mmHg 131 mmHg [facility] Respiratory rate 18 bpm 18 bpm [facility] Heart rate 76 bpm 76 bpm [facility] Body temperature 97.8 Fahrenheit 97.8 Fahrenhei t [facility] ID Date Data Source [id number] 07/07/2019 10:33:15 PM EDT [facility] Name Value Range Interpretation Code Description Data Source(s) Body weight Measured 197 lb 197 lb [facility] ID Date Data Source [id number] 06/27/2019 03:34:24 PM EST [facility] Name Value Range Interpretation Code Description Data Source(s) Body weight Measured 197 lb 197 lb [facility]
[2020-01-29] MEDS ORDERED: QUEtiapine FUMARATE 400 MG TABLET PO ONE (22:00)
[2020-01-29] MEDS: chlordiazePOXIDE HCL 25 MG CAPSULE PO SCH (22:20)
[2020-01-29] MEDS: THIAMINE HCL 100 MG TABLET (FP) PO SCH (22:21)
[2020-01-29] MEDS: MELATONIN 5 MG TABLETS PO SCH (22:21)
[2020-01-30] MEDS: chlordiazePOXIDE HCL 25 MG CAPSULE PO SCH ×4 (05:36→22:11)
[2020-01-30] MEDS: NICOTINE 7 MG/24 HOURS TOPICAL PATCH TD SCH (10:17)
[2020-01-30] MEDS: PRENATAL VITAMINS W/ FOLIC ACID TABLET (FP) PO SCH (10:17)
[2020-01-30 10:46] LABS: HEMATOCRIT 35.8 % (35.4-49); HEMOGLOBIN 12.1 GM/dL (11.7-16.9); MCH 31.7 pg (25.7-33.7); MCHC 33.8 g/dl (32.0-35.9); MEAN PLT VOLUME 9.4 fl (7.5-11.1); PLATELET COUNT 234 K/MM3 (134-434); RBC 3.81 M/mm3 (4.00-5.60); RDW 14.7 % (11.9-15.9); WHITE BLOOD COUNT 7.1 K/mm3 (4.0-10.0)
[2020-01-30 11:02] LABS: ALBUMIN 3.3 g/dl (3.4-5.0); CALCIUM 8.5 mg/dL (8.5-10.1); CREATININE 1.2 mg/dL (0.55-1.3); POTASSIUM 4.1 mmol/L (3.5-5.1)
[2020-01-30 11:05] LABS: BILIRUBIN,TOTAL 0.8 mg/dL (0.2-1); TOT PROT 6.6 g/dl (6.4-8.2)
--- NOTE | 2020-01-30 11:32 | PN ---
S CIWA - CIWA Score Nausea/Vomitin-No Nausea/No Vomiting Muscle Tremors: 3 Anxiety: 2 Agitation: 3 Paroxysmal Sweats: 2 Orientation: 0-Oriented Tacttile Disturbances: 0-None Auditory Disturbances: 0-None Visual Disturbances: 0-None Headache: 0-None Present CIWA-Ar Total Score: 10 S Progress Note (SOAP) Subjective: sweats tired interrupted sleep agitation Objective: 01/30/20 11:32 Vital Signs Temperature 97.1 F L 01/30/20 09:34 Pulse Rate 77 01/30/20 09:34 Respiratory Rate 18 01/30/20 09:34 Blood Pressure 104/73 01/30/20 09:34 O2 Sat by Pulse Oximetry (%) 99 01/30/20 09:34 Laboratory Tests 01/30/20 01/30/20 01/30/20 07:30 07:30 07:30 WBC 7.1 RBC 3.81 L Hgb 12.1 Hct 35.8 MCV 94.0 MCH 31.7 MCHC 33.8 RDW 14.7 D Plt Count 234 MPV 9.4 Sodium 141 Potassium 4.1 Chloride 107 Carbon Dioxide 27 Anion Gap 7 L BUN 15.0 Creatinine 1.2 Est GFR (CKD-EPI)AfAm 76.79 Est GFR (CKD-EPI)NonAf 66.26 Random Glucose 98 Calcium 8.5 Total Bilirubin 0.8 AST 67 H ALT 54 Alkaline Phosphatase 62 Total Protein 6.6 Albumin 3.3 L Syphilis Serology Non-reactive labs noted aaox3 lying in bed no acute distress Assessment: 01/30/20 11:32 withdrawals Plan: continue detox
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
[2020-01-30] MEDS: QUEtiapine FUMARATE 200 MG TABLET PO SCH (22:12)
[2020-01-30] MEDS: THIAMINE HCL 100 MG TABLET (FP) PO SCH (22:12)
[2020-01-30] MEDS: MELATONIN 5 MG TABLETS PO SCH (22:13)
[2020-01-31] MEDS: chlordiazePOXIDE HCL 25 MG CAPSULE PO SCH ×4 (07:32→22:19)
--- NOTE | 2020-01-31 11:02 | PN ---
[facility] CIWA - CIWA Score Nausea/Vomitin-No Nausea/No Vomiting Muscle Tremors: 2 Anxiety: 1-Mildly Anxious Agitation: 1-Slight > Activity Paroxysmal Sweats: 1-Minimal Palms Moist Orientation: 0-Oriented Tacttile Disturbances: 0-None Auditory Disturbances: 0-None Visual Disturbances: 0-None Headache: 0-None Present CIWA-Ar Total Score: 5 [facility] Progress Note (SOAP) Subjective: sweats tired interrupted sleep Objective: 01/31/20 11:02 Vital Signs Temperature 97.1 F L 01/31/20 08:37 Pulse Rate 84 01/31/20 08:37 Respiratory Rate 18 01/31/20 08:37 Blood Pressure 134/81 01/31/20 08:37 O2 Sat by Pulse Oximetry (%) 99 01/31/20 08:37 Laboratory Tests 01/29/20 01/30/20 01/30/20 18:00 07:30 07:30 WBC 7.1 RBC 3.81 L Hgb 12.1 Hct 35.8 MCV 94.0 MCH 31.7 MCHC 33.8 RDW 14.7 D Plt Count 234 MPV 9.4 Sodium Potassium Chloride Carbon Dioxide Anion Gap BUN Creatinine Est GFR (CKD-EPI)AfAm Est GFR (CKD-EPI)NonAf Random Glucose Calcium Total Bilirubin AST ALT Alkaline Phosphatase Total Protein Albumin Syphilis Serology Non-reactive COVID-19 (TAO) Not detected 01/30/20 07:30 WBC RBC Hgb Hct MCV MCH MCHC RDW Plt Count MPV Sodium 141 Potassium 4.1 Chloride 107 Carbon Dioxide 27 Anion Gap 7 L BUN 15.0 Creatinine 1.2 Est GFR (CKD-EPI)AfAm 76.79 Est GFR (CKD-EPI)NonAf 66.26 Random Glucose 98 Calcium 8.5 Total Bilirubin 0.8 AST 67 H ALT 54 Alkaline Phosphatase 62 Total Protein 6.6 Albumin 3.3 L Syphilis Serology COVID-19 (TAO) labs noted aaox3 ambulating no acute distress Assessment: 01/31/20 11:02 withdrawals Plan: continue detox
[2020-01-31] MEDS: FLUoxetine HCL 20 MG CAPSULE PO SCH (12:20)
[2020-01-31] MEDS: NICOTINE 7 MG/24 HOURS TOPICAL PATCH TD SCH (12:20)
[2020-01-31] MEDS: ENALAPRIL MALEATE 10 MG TABLET PO SCH (12:20)
[2020-01-31] MEDS: HYDROCHLOROTHIAZIDE 25 MG TABLET (FP) PO SCH (12:20)
[2020-01-31] MEDS: PRENATAL VITAMINS W/ FOLIC ACID TABLET (FP) PO SCH (12:21)
[2020-01-31] MEDS ORDERED: MASKS NR ONE (17:53)
[2020-01-31] MEDS: QUEtiapine FUMARATE 200 MG TABLET PO SCH (22:19)
[2020-01-31] MEDS: MELATONIN 5 MG TABLETS PO SCH (22:19)
[2020-01-31] MEDS: THIAMINE HCL 100 MG TABLET (FP) PO SCH (22:19)
[2020-02-01] MEDS ORDERED: chlordiazePOXIDE HCL 10 MG CAPSULE PO PRN
[2020-02-01] MEDS: chlordiazePOXIDE HCL 10 MG CAPSULE PO SCH ×4 (05:48→22:41)
[2020-02-01] MEDS: PRENATAL VITAMINS W/ FOLIC ACID TABLET (FP) PO SCH (11:21)
[2020-02-01] MEDS: NICOTINE 7 MG/24 HOURS TOPICAL PATCH TD SCH (11:21)
[2020-02-01] MEDS: ENALAPRIL MALEATE 10 MG TABLET PO SCH (11:24)
[2020-02-01] MEDS: FLUoxetine HCL 20 MG CAPSULE PO SCH (11:24)
[2020-02-01] MEDS: HYDROCHLOROTHIAZIDE 25 MG TABLET (FP) PO SCH (11:25)
--- NOTE | 2020-02-01 12:36 | PN ---
[facility] CIWA - CIWA Score Nausea/Vomitin-No Nausea/No Vomiting Muscle Tremors: 2 Anxiety: 1-Mildly Anxious Agitation: 1-Slight > Activity Paroxysmal Sweats: 1-Minimal Palms Moist Orientation: 0-Oriented Tacttile Disturbances: 0-None Auditory Disturbances: 0-None Visual Disturbances: 0-None Headache: 0-None Present CIWA-Ar Total Score: 5 [facility] Progress Note (SOAP) Subjective: sweats interrupted sleep Objective: 02/01/20 12:36 Vital Signs Temperature 98.0 F 02/01/20 08:36 Pulse Rate 82 02/01/20 08:36 Respiratory Rate 20 02/01/20 08:36 Blood Pressure 149/92 02/01/20 08:36 O2 Sat by Pulse Oximetry (%) 95 02/01/20 08:36 Laboratory Tests 01/29/20 01/30/20 01/30/20 18:00 07:30 07:30 WBC 7.1 RBC 3.81 L Hgb 12.1 Hct 35.8 MCV 94.0 MCH 31.7 MCHC 33.8 RDW 14.7 D Plt Count 234 MPV 9.4 Sodium Potassium Chloride Carbon Dioxide Anion Gap BUN Creatinine Est GFR (CKD-EPI)AfAm Est GFR (CKD-EPI)NonAf Random Glucose Calcium Total Bilirubin AST ALT Alkaline Phosphatase Total Protein Albumin Syphilis Serology Non-reactive COVID-19 (TAO) Not detected 01/30/20 07:30 WBC RBC Hgb Hct MCV MCH MCHC RDW Plt Count MPV Sodium 141 Potassium 4.1 Chloride 107 Carbon Dioxide 27 Anion Gap 7 L BUN 15.0 Creatinine 1.2 Est GFR (CKD-EPI)AfAm 76.79 Est GFR (CKD-EPI)NonAf 66.26 Random Glucose 98 Calcium 8.5 Total Bilirubin 0.8 AST 67 H ALT 54 Alkaline Phosphatase 62 Total Protein 6.6 Albumin 3.3 L Syphilis Serology COVID-19 (TAO) aaox3 ambulating no acute distress Assessment: 02/01/20 12:36 withdrawals Plan: continue detox
[2020-02-01] MEDS: MELATONIN 5 MG TABLETS PO SCH (22:41)
[2020-02-01] MEDS: QUEtiapine FUMARATE 200 MG TABLET PO SCH (22:41)
[2020-02-01] MEDS: THIAMINE HCL 100 MG TABLET (FP) PO SCH (22:41)
[2020-02-02] MEDS ORDERED: chlordiazePOXIDE HCL 10 MG CAPSULE PO SCH (05:00)
--- NOTE | 2020-02-02 11:32 | PN ---
S CIWA - CIWA Score Nausea/Vomitin-No Nausea/No Vomiting Muscle Tremors: 1-None Visible, but [place] Anxiety: 0-No Anxiety, at Ease Agitation: 0-Normal Activity Paroxysmal Sweats: 1-Minimal Palms Moist Orientation: 0-Oriented Tacttile Disturbances: 0-None Auditory Disturbances: 0-None Visual Disturbances: 0-None Headache: 0-None Present CIWA-Ar Total Score: 2 [facility] Progress Note (SOAP) Subjective: sweats Objective: 02/02/20 11:31 Vital Signs Temperature 98.8 F 02/02/20 08:31 Pulse Rate 75 02/02/20 08:31 Respiratory Rate 20 02/02/20 08:31 Blood Pressure 124/78 02/02/20 08:31 O2 Sat by Pulse Oximetry (%) 98 02/02/20 08:31 aaox3 ambulating no acute distress Assessment: 02/02/20 11:31 withdrawals Plan: continue detox d/c in am
[2020-02-02] MEDS: NICOTINE 7 MG/24 HOURS TOPICAL PATCH TD SCH (13:08)
[2020-02-02] MEDS: HYDROCHLOROTHIAZIDE 25 MG TABLET (FP) PO SCH (13:08)
[2020-02-02] MEDS: FLUoxetine HCL 20 MG CAPSULE PO SCH (13:08)
[2020-02-02] MEDS: ENALAPRIL MALEATE 10 MG TABLET PO SCH (13:08)
[2020-02-02] MEDS: PRENATAL VITAMINS W/ FOLIC ACID TABLET (FP) PO SCH (13:08)
[2020-02-02 14:23] VITALS: BP 157/79; PULSE 89; TEMP 98
[2020-02-03] MEDS ORDERED: chlordiazePOXIDE HCL 10 MG CAPSULE PO ONE (05:00)
== END 2020-02-02 21:13 | disposition other institution (70) | DRG 774 ==
LOC: YASAS 15:12 → Y6N 17:47
PROVIDERS: ADMIT Allergy & Immunology; ATTEND Allergy & Immunology
PROC: HZ2ZZZZ Detoxification Services for Substance Abuse Treatment (ICD-10-PCS; principal; 2020-01-29)
DX: F10.230 Alcohol dependence with withdrawal, uncomplicated (principal); F14.20 Cocaine dependence, uncomplicated; F17.210 Nicotine dependence, cigarettes, uncomplicated; F19.24 Other psychoactive substance dependence with psychoactive substance-induced mood disorder; F19.282 Other psychoactive substance dependence with psychoactive substance-induced sleep disorder; F20.0 Paranoid schizophrenia; E78.5 Hyperlipidemia, unspecified; I10 Essential (primary) hypertension; E66.9 Obesity, unspecified; Z68.32 Body mass index [BMI] 32.0-32.9, adult; Z97.0 Presence of artificial eye; Z87.828 Personal history of other (healed) physical injury and trauma; Z91.5 Personal history of self-harm; Z56.0 Unemployment, unspecified; Z59.0 Homelessness
CPT/HCPCS: 36415; 80053; 85027; 86780; U0003

== ENCOUNTER 2020-02-02 15:51 | Inpatient (IN) | payer OTHER ==
[~2020-02-02 15:51] MED LIST: ACETAMINOPHEN 325 MG TABLET (FP) PO PRN; IBUPROFEN 400 MG TABLET (FP) PO PRN; LOPERAMIDE HCL 2 MG CAPSULE PO PRN; MAG HYDROX/AL HYDROX/SIMETH 30 ML UNIT-DOSE CUP PO PRN; MAGNESIUM CITRATE 300 ML BOTTLE PO PRN; MAGNESIUM HYDROX 2400MG/30ML ORAL SUSPENSION 30 ML CUP PO PRN; MENTHOL/PHENOL 1 EACH UD MM PRN; NICOTINE POLACRILEX 2 MG GUM BUC PRN; P-EPHED 60MG/TRIPROLIDI 2.5MG TABLET PO PRN; guaiFENesin 200 MG/10 ML 10 ML UNIT-DOSE CUPS PO PRN; hydrOXYzine PAMOATE 25 MG CAPSULE (FP) PO PRN
--- NOTE | 2020-02-02 15:51 | HP ---
[facility] Rehab Assess/Revision - Admission History Ad[facility] to [facility]hab from[facility] - Findings Detox History & Physical reviewed: Yes Concur with findings: Yes Inpatient Rehab Admission - Rehab Decision to Admit Inpatient rehab admission?: Yes - Initial Determination Are CD services needed?: Yes Free of communicable disease: Yes Not in need of hospitalization: Yes - Rehab Admission Criteria Previous failed treatment: Yes Poor recovery environment: Yes Comorbidities: Yes Lacks judgement: Yes Patient is meeting Inpatient Rehab admission criteria:: Yes
--- OUTSIDE RECORDS SUMMARY | 2020-02-02 16:06 | XMS ---
:1960 [facility] Organization [facility] Care Team Providers Name Role Phone ED STAFF YUE DÍAZ Unavailable Unavailable ED STAFF PHYSICIAN, STAFF Unavailable Unavailable DENNIS ACEVES MD Unavailable Unavailable [place], C Unavailable Unavailable [place], C Unavailable Unavailable [place], C Unavailable Unavailable Bro, C Unavailable Unavailable Re-disclosure Warning The records [...] is protected by Article 27-F of the [place] [facility] Public Health law. If you continue you may haveaccess to information: Regarding HIV / AIDS; Provided by facilities licensed or operated by the [facility] Office of Mental Health; or Provided by the [facility] Office for People With Developmental Disabilities. If such information is present, then the following [place] mandated warning applies: This information has been [...] is NOT sufficient authorization for further disclosure. Encounters Encounter Providers Location Date Indications Data Source(s ) Inpatient Attender: DENNIS [facility] 06/27/2019 [facility] FAEZAdmitter: Martha 03:07:00 PM [facility] 07/07/2019 10:33:00 PM EDT Patient discharged. Outpatient [facility] 06/27/2019 12:59:00 PM [facility] - [address] [place] [address] 03:34:00 PM EST Patient discharged. Emergency Attender: YUE ED STAFF H 06/26/2019 11:43:00 PM [facility] PHYSICIANAttender: STAFF ED [facility] - 06/27/2019 [facility] STAFF PHYSICIANAdmitter: 03:14:00 PM EST [facility] ED STAFF PHYSICIANReferrer: STAFF ED STAFF PHYSICIAN Patient discharged. Insurance Providers Payer name Policy type Policy ID Covered Covered alliance party's Policy P alethea / Coverage alliance party ID relationship to Silva Inf ormation type silva HEALTH FIRST [id number] SP [id number] R HEALTH FIRST [id number] SP [id number] R SELF PAY 0 Self 0 MEDICAID INP [id number] Self [id number] R PSYCH [facility] HE[facility] [id number] Self [id number] FIRST HMO [place] O [id number] 01 [id number] PERORA W [id number] 01 [id number] [facility] MEDICAID [id number] SP [id number] Problems, Conditions, and Diagnoses Code Display Name Description Problem Type Effective Data Dates Source(s) F14.99 Cocaine use, COCAINE USE, UNSP Diagnosis 06/26/2019 [facility] unspecified with WITH UNSPECIFIED 11:43:00 PM M edical unspecified COCAINE-INDUCED EST Center cocaine-induced DISORDER disorder F10.99 Alcohol use, ALCOHOL USE, UNSP Diagnosis 06/26/2019 [facility] unspecified with WITH UNSPECIFIED 11:43:00 PM M 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 ID Date Data Source [id number] 01/29/2020 08:41:00 AM EDT [facility] Name Value Range Interpretation Code Description Data Sulma rce(s) Supporting Document(s ) SARS-CoV-2 [facility] RNA Resp Health System Ql TAO+probe This lab was ordered by [facility] a nd reported by [facility]. ID Date Data Source [id number] 01/05/2020 10:02:00 AM EDT [facility] Name Value Range Interpretation Code Description Data Sulma rce(s) Supporting Document(s ) SARS-CoV-2 [facility] RNA [facility] Ql TAO+probe This lab was ordered by [facility] a nd reported by [facility]. ID Date Data Source [id number] 11/06/2019 09:14:00 PM EDT [facility] Name Value Range Interpretation Code Description Data Sulma rce(s) Supporting Document(s ) SARS-CoV-2 [facility] RNA Resp Health System Ql TAO+probe This lab was ordered by [facility] and reported by [facility]. ID Date Data Source [id number] 10/27/2019 01:18:00 PM EDT [facility] Name Value Range Interpretation Code Description Data Sulma rce(s) Supporting Document(s ) SARS-CoV-2 [facility] RNA Resp [facility] System Ql TAO+probe This lab was ordered by [facility] a nd reported by [facility]. ID Date Data Source [id number] 10/12/2019 10:48:00 AM EDT [facility] Name Value Range Interpretation Code Description Data Sulma rce(s) Supporting Document(s ) SARS-CoV-2 [facility] RNA Resp Ql TAO+probe This lab was ordered by [facility] a nd reported by [facility]. ID Date Data Source [id number] 09/22/2019 11:56:00 PM EDT [facility] Name Value Range Interpretation Description Data Sup porting Code Source(s) Document(s ) SARS [facility] Coronavirus 2 RNA Presence Respiratory Specimen TAO Probe Detection This lab was ordered by [facility] and reported by [facility]. ID Date Data Source [id number] 09/22/2019 03:16:00 PM EDT [facility] Name Value Range Interpretation Code Description Data Sulma rce(s) Supporting Document(s ) SARS-CoV-2 [facility] RNA Resp Ql TAO+probe This lab was ordered by [facility] and reported by [facility]. ID Date Data Source [id number] 09/17/2019 03:52:00 AM EDT [facility] Name Value Range Interpretation Code Description Data Sulma rce(s) Supporting Document(s ) SARS-CoV-2 [facility] RNA Resp [facility] Ql TAO+probe This lab was ordered by [facility] a nd reported by [facility]. ID Date Data Source [id number] 08/27/2019 08:58:00 PM EDT [facility] Name Value Range Interpretation Description Data Sup porting Code Source(s) Document(s ) SARS-CoV-2 ID [facility] NOW REPORTABLE This lab was ordered by [facility] and reported by [facility]. ID Date Data Source [id number] 08/24/2019 07:00:00 AM EDT [facility] Name Value Range Interpretation Code Description Data Sulma rce(s) Supporting Document(s ) SARS-COV-2 [facility] RNA RESP Diagnostics QL TAO+PROBE This lab was ordered by [facility] a nd reported by [facility]. ID Date Data Source [id number] 06/27/2019 05:30:00 AM EST [facility]ure[facility] 0 Name Value Range Interpretation Description Data Sup porting Code Source(s) Document(s ) Glucose NEGATIVE <content Saint [Mass/volume] styleCode="Lauren Estrada in Urine by d">Urine Medical Test strip Glucose Center </content>NEGA TIVE MG/DL<content styleCode="Ana lics"> (NEGATIVE MG/DL)</conten t> UNK NEGATIVE <content Saint styleCode="Lauren Liangs d">Urine Medical Bilirubin Center </content>NEGA TIVE <content styleCode="Ana lics"> (NEGATIVE )</content> Color of Urine YELLOW <content Saint styleCode="Lauren Sean d">Color, Medical Urine Center </content>YELL OW <content styleCode="Ana lics"> (YELLOW )</content> UNK CLEAR <content Saint styleCode="Lauren Sean d">Urine Medical Clarity Center </content>SHABNAM R <content styleCode="Ana lics"> (CLEAR )</content> Protein NEGATIVE <content Saint [Mass/volume] styleCode="Lauren Liangs in Urine by d">Urine Medical Test strip Protein Center </content>NEGA TIVE MG/DL<content styleCode="Ana lics"> (NEGATIVE MG/DL)</conten t> pH of Urine by 4.5-8.0 <content Saint Test strip styleCode="Lauren Liangs d">Urine pH Medical </content>5.5 Center <content styleCode="Ana lics"> (4.5-8.0 )</content> Hemoglobin NEGATIVE <content Saint [Presence] in styleCode="Lauren Liangs Urine by Test d">Urine Blood Medical strip </content>NEGA Center TIVE <content styleCode="Ana lics"> (NEGATIVE )</content> Specific 1.015-1.02 Below low normal <content Saint gravity of 5 styleCode="Lauren Liangs Urine by Test d">Urine Medical strip Specific Center Crane </content><= 1.005 L<content styleCode="Ana lics"> (1.015-1.025 )</content> Ketones NEGATIVE <content Saint [Mass/volume] styleCode="Lauren Liangs in Urine by d">Urine Medical Test strip Ketone Center </content>TRAC E MG/DL<content styleCode="Ana lics"> (NEGATIVE MG/DL)</conten t> Urobilinogen 0.2-1.0 <content Saint [Units/volume] styleCode="Lauren Sean in Urine by d">Urine Medical Test strip Urobilinogen Center </content>0.2 MG/DL<content styleCode="Ana lics"> (0.2-1.0 MG/DL)</conten t> Leukocyte NEGATIVE <content Saint esterase styleCode="Lauren Sean [Presence] in d">Urine Medical Urine by Test Leukocyte Center strip </content>NEGA TIVE <content styleCode="Ana lics"> (NEGATIVE )</content> Nitrite NEGATIVE <content Saint [Presence] in styleCode="Lauren Liangs Urine by Test d">Urine Medical strip Nitrite Center </content>NEGA TIVE <content styleCode="Ana lics"> (NEGATIVE )</content> ID Date Data Source [id number] 06/27/2019 05:30:00 AM [facility] -0400 Name Value Range Interpretation Description Data Sup porting Code Source(s) Document(s ) Cannabinoids <content Saint [Presence] in styleCode="Lauren Liangs Urine by Screen d">Cannabinoid Medical method >50 ng/mL s Center </content>NEGA TIVE NG/ML (Reference Range: not available)<br/ > ID Date Data Source Liver 06/27/2019 12:56:00 AM [facility] Profile.[id number] Name Value Range Interpretation Description Data Sup [...] s"> (38-126 IU/L)</content> ID Date Data Source [id number] 06/27/2019 12:56:00 AM EST [facility] Name Value Range Interpretation Description Data Sup porting Code Source(s) Document(s ) Triglyceride < 150 Above high normal <content Saint [Mass/volume] in styleCode="Lauren Sean Serum or Plasma d">Triglycerid [facility] Center </content>152 MG/DL H<content styleCode="Ana lics"> (< 150 MG/DL)</conten t> UNK < 100 Above high normal <content Saint styleCode="Lauren Sean d">[facility] </content>101 MG/DL H<content styleCode="Ana lics"> (< 100 MG/DL)</conten t> Cholesterol -<200 <content Saint [Mass/volume] in styleCode="Lauren Sean Serum or Plasma d">Cholesterol Medical </content>180 Center MG/DL<content styleCode="Ana lics"> (-<200 MG/DL)</conten t> UNK > 60 Below low normal <content Saint styleCode="Lauren Sean d">HDL- Medical Cholesterol Center </content>49 MG/DL L<content styleCode="Ana lics"> (> 60 MG/DL)</conten t> ID Date Data Source [id number] 06/27/2019 12:56:00 AM TRACEY Carey [facility] 0500 Name Value Range Interpretation Description Data [...] (0.0 KCUMM)</content > ID Date Data Source GFR(Creatinine).[id number] 06/27/2019 12:56:00 AM EST [facility] 0-0500 Name Value Range Interpretation Code Description Data Sulma rce(s) Supporting Document(s ) UNK > 60 <content [facility] styleCode="Bold"> Medical Cent er EGFR </content>106 GFR<content styleCode="Italic s"> (> 60 GFR)</content> ID Date Data Source [id number] 06/27/2019 12:56:00 AM EST [facility] -0500 Name Value Range Interpretation Code Description Data Sulma rce(s) Supporting Document(s ) UNK 4.2-5.8 <content [facility] styleCode="Bold" Medical Cente r >Hemoglobin A1C </content>5.8 %<content styleCode="Itali cs"> (4.2-5.8 %)</content> ID Date Data Source [facility].[id number] 06/27/2019 12:56:00 AM [facility] Name Value Range Interpretation Description Data Sup porting Code Source(s) Document(s ) Sodium 137-145 <content Saint [Moles/volume] in styleCode="Bold"> [facility] Serum or Plasma Sodium Medical </content>138 Center MEQ/L<content styleCode="Italic s"> (137-145 MEQ/L)</content> Potassium 3.5-5.3 <content Saint [Moles/volume] in styleCode="Bold"> [facility] Serum or Plasma Potassium Medical </content>4.2 Center MEQ/L<content styleCode="Italic s"> (3.5-5.3 MEQ/L)</content> UNK 9-20 <content Saint styleCode="Bold"> [facility] BUN </content>18 Medical MG/DL<content Center styleCode="Italic s"> (9-20 MG/DL)</content> Chloride 98-107 <content Saint [Moles/volume] in styleCode="Bold"> [facility] Serum or Plasma Chloride Medical </content>107 Center [...] Ever completed Denies Ever Smoked [facility] 12:03:00 AM EST Smoked Medical C enter Vital Signs ID Date Data Source UNK Name Value Range Interpretation Code Description Data Source(s) Diastolic blood 85 mmHg 85 mmHg [facility] Systolic blood 131 mmHg 131 mmHg [facility] Respiratory rate 18 bpm 18 bpm [facility] Heart rate 72 bpm 72 bpm [facility] Body temperature 97.5 Fahrenheit 97.5 Fahrenhei t [facility] Heart rate 70 bpm 70 bpm [facility] Body temperature 97.5 Fahrenheit 97.5 Fahrenhei t [facility] Diastolic blood 92 mmHg 92 mmHg [facility] Systolic blood 138 mmHg 138 mmHg [facility] Respiratory rate 18 bpm 18 bpm [facility] Diastolic blood 105 mmHg 105 mmHg [facility] Systolic blood 150 mmHg 150 mmHg [facility] Respiratory rate 18 bpm 18 bpm [facility] Heart rate 86 bpm 86 bpm [facility] Body temperature 97.5 Fahrenheit 97.5 Fahrenhei t [facility] Diastolic blood 86 mmHg 86 mmHg [facility] Systolic blood 140 mmHg 140 mmHg [facility] Respiratory rate 18 bpm 18 bpm [facility] Heart rate 86 bpm 86 bpm [facility] Body temperature 97.5 Fahrenheit 97.5 Fahrenhei t [facility] Respiratory rate 18 bpm 18 bpm [facility] Body temperature 98.2 Fahrenheit 98.2 Fahrenhei t [facility] Diastolic blood 83 mmHg 83 mmHg [facility] Systolic blood 129 mmHg 129 mmHg [facility] Heart rate 87 bpm 87 bpm [facility] Diastolic blood 67 mmHg 67 mmHg [facility] Systolic blood 120 mmHg 120 mmHg [facility] Heart rate 83 bpm 83 bpm [facility] Diastolic blood 84 mmHg 84 mmHg [facility] Systolic blood 121 mmHg 121 mmHg [facility] Respiratory rate 18 bpm 18 bpm [facility] Heart rate 79 bpm 79 bpm [facility] Body temperature 97.2 Fahrenheit 97.2 Fahrenhei t [facility] Diastolic blood 88 mmHg 88 mmHg [facility] Systolic blood 145 mmHg 145 mmHg [facility] Respiratory rate 18 bpm 18 bpm [facility] Heart rate 80 bpm 80 bpm [facility] Body temperature 98.4 Fahrenheit 98.4 Fahrenhei t [facility] Diastolic blood 78 mmHg 78 mmHg [facility] Systolic blood 124 mmHg 124 mmHg [facility] Respiratory rate 18 bpm 18 bpm [facility] Heart rate 76 bpm 76 bpm [facility] Body temperature 97.8 Fahrenheit 97.8 Fahrenhei t [facility] Diastolic blood 80 mmHg 80 mmHg [facility] Systolic blood 117 mmHg 117 mmHg [facility] Respiratory rate 18 bpm 18 bpm [facility] Heart rate 72 bpm 72 bpm [facility] Body temperature 97.8 Fahrenheit 97.8 Fahrenhei t [facility] Diastolic blood 79 mmHg 79 mmHg [facility] Systolic blood 114 mmHg 114 mmHg [facility] Respiratory rate 18 bpm 18 bpm [facility] Heart rate 79 bpm 79 bpm [facility] Body temperature 98.1 Fahrenheit 98.1 Fahrenhei t [facility] Diastolic blood 79 mmHg 79 mmHg [facility] Systolic blood 122 mmHg 122 mmHg [facility] Respiratory rate 18 bpm 18 bpm [facility] Heart rate 73 bpm 73 bpm [facility] Body temperature 98.1 Fahrenheit 98.1 [facility] Diastolic blood 86 mmHg 86 mmHg [facility] Systolic blood 135 mmHg 135 mmHg [facility] Heart rate 82 bpm 82 bpm [facility] Diastolic blood 88 mmHg 88 mmHg [facility] Systolic blood 151 mmHg 151 mmHg [facility] Respiratory rate 20 bpm 20 bpm [facility] Heart rate 77 bpm 77 bpm [facility] Body temperature 98.2 Fahrenheit 98.2 [facility] Body temperature 37.985363 Malia 37.824412 Malia [facility] Respiratory rate 20 /min 20 /min [facility] Oxygen 99 % 99 % [facility] saturation in Medical Arterial blood Center by Pulse oximetry Heart rate 71 /min 71 /min [facility] Diastolic blood 59 mm[Hg] 59 mm[Hg] [facility] pressure Medical Center Systolic blood 99 mm[Hg] 99 mm[Hg] [facility] Medical [place] Body temperature 36.644608 Malia 36.193481 Malia [facility] Respiratory rate 18 /min 18 /min [facility] Oxygen 98 % 98 % [facility] saturation in Medical Arterial blood Center by Pulse oximetry Heart rate 75 /min 75 /min [facility] Diastolic blood 70 mm[Hg] 70 mm[Hg] [facility] pressure Medical Center Systolic blood 126 mm[Hg] 126 mm[Hg] [facility] Center Body temperature 36.203972 Malia 36.019334 Malia [facility] Respiratory rate 18 /min 18 /min [facility] Oxygen 98 % 98 % [facility] saturation in Medical Arterial blood Center by Pulse oximetry Heart rate 80 /min 80 /min [facility] Diastolic blood 75 mm[Hg] 75 mm[Hg] [facility] pressure Medical Center Systolic blood 130 mm[Hg] 130 mm[Hg] [facility] Medical Center ID Date Data Source [id number] 07/07/2019 10:33:15 PM EDT [facility] Name Value Range Interpretation Code Description Data Source(s) Body weight Measured 197 lb 197 lb [facility] ID Date Data Source [id number] 06/27/2019 03:34:24 PM EST [facility] Name Value Range Interpretation Code Description Data Source(s) Body weight Measured 197 lb 197 lb [facility]
--- OUTSIDE RECORDS SUMMARY | 2020-02-02 16:07 | XMS ---
:1960 Author Organization [facility] Care Team Providers Name Role Phone ED STAFF YUE DÍAZ Unavailable Unavailable ED STAFF PHYSICIAN, STAFF Unavailable Unavailable DENNIS ACEVES MD Unavailable Unavailable [place], C Unavailable Unavailable [place], C Unavailable Unavailable [place], C Unavailable Unavailable Bro, C Unavailable Unavailable [...] is protected by Article 27-F of the [facility] Public Health law. If you continue you may haveaccess to information: Regarding HIV / AIDS; Provided by facilities licensed or operated by the [facility] Office of Mental Health; or Provided by the [facility] Office for People With Developmental Disabilities. If such information is present, then the following [place] mandated warning applies: This information has [...] law may result in a fine or assisted sentence or both. A general authorization for the release of medical or other information is NOT sufficient authorization for further disclosure. Encounters Encounter Providers Location Date Indications Data Source(s ) Inpatient Attender: DENNIS [facility] 06/27/2019 [facility] FAEZAdmitter: Martha 03:07:00 PM [facility] 07/07/2019 10:33:00 PM EDT Patient discharged. Outpatient [facility] 06/27/2019 12:59:00 PM [facility] - [address] [place] [address] 03:34:00 PM EST Patient discharged. Emergency Attender: YUE ED STAFF H 06/26/2019 11:43:00 PM [facility] PHYSICIANAttender: STAFF ED [facility] - 06/27/2019 [facility] STAFF PHYSICIANAdmitter: 03:14:00 PM EST [facility] ED STAFF PHYSICIANReferrer: STAFF ED STAFF PHYSICIAN Patient discharged. Insurance Providers Payer name Policy type Policy ID Covered Covered libertarian's Policy P alethea / Coverage libertarian ID relationship to [facility] Inf ormation type silva [employer] FIRST [id number] SP [id number] R HEALTH FIRST [id number] SP [id number] R SELF PAY 0 Self 0 MEDICAID INP [id number] Self [id number] R PSYCH [facility] HEALTH [id number] Self [id number] FIRST HMO [place] O [id number] 01 [id number] Sian's Plan W [id number] 01 [id number] [employer] MEDICAID [id number] SP [id number] Problems, Conditions, and Diagnoses Code Display Name Description Problem Type Effective Data Dates Source(s) F14.99 Cocaine use, COCAINE USE, UNSP Diagnosis 06/26/2019 [facility] unspecified with WITH UNSPECIFIED 11:43:00 PM M edical unspecified COCAINE-INDUCED EST Center cocaine-induced DISORDER disorder F10.99 Alcohol use, ALCOHOL USE, UNSP Diagnosis 06/26/2019 [facility] unspecified with WITH UNSPECIFIED 11:43:00 PM M 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 F25.9 Schizoaffective SCHIZOAFFECTIVE Diagnosis 06/26/2019 [facility] disorder, DISORDER, 11:43:00 PM Medical unspecified UNSPECIFIED EST Center R45.851 Suicidal ideations SUICIDAL IDEATIONS Diagnosis 0 [facility] 11:43:00 PM Medical EST Center Results ID Date Data Source [id number] 01/29/2020 06:00:00 PM EDT [facility] Name Value Range Interpretation Description Data Sup porting Code Source(s) Document(s ) SARS [facility] coronavirus 2 RNA This lab was ordered by [facility] and reported by [facility]. ID Date Data Source [id number] 01/29/2020 08:41:00 AM EDT [facility] Name Value Range Interpretation Code Description Data Sulma rce(s) Supporting Document(s ) SARS-CoV-2 [facility] RNA Resp Health System Ql TAO+probe This lab was ordered by [facility] a nd reported by [facility]. ID Date Data Source [id number] 01/05/2020 10:02:00 AM EDT [facility] Name Value Range Interpretation Code Description Data Sulma rce(s) Supporting Document(s ) SARS-CoV-2 [facility] RNA Resp Health System Ql TAO+probe This lab was ordered by [facility] a nd reported by [facility]. ID Date Data Source [id number] 11/06/2019 09:14:00 PM EDT [facility] Name Value Range Interpretation Code Description Data Sulma rce(s) Supporting Document(s ) SARS-CoV-2 [facility] RNA Resp Health System Ql TAO+probe This lab was ordered by [facility] and reported by [facility]. ID Date Data Source [id number] 10/27/2019 01:18:00 PM EDT [facility] Name Value Range Interpretation Code Description Data Sulma rce(s) Supporting Document(s ) SARS-CoV-2 [facility] RNA Resp Health System Ql TAO+probe This lab was ordered by [facility] a nd reported by [facility]. ID Date Data Source [id number] 10/12/2019 10:48:00 AM EDT [facility] Name Value Range Interpretation Code Description Data Sulma rce(s) Supporting Document(s ) SARS-CoV-2 [facility] RNA Resp Ql TAO+probe This lab was ordered by [facility] a nd reported by [facility]. ID Date Data Source [id number] 09/22/2019 11:56:00 PM EDT [facility] Name Value Range Interpretation Description Data Sup porting Code Source(s) Document(s ) SARS [facility] Coronavirus 2 RNA Presence Respiratory Specimen TAO Probe Detection This lab was ordered by [facility] and reported by [facility]. ID Date Data Source [id number] 09/22/2019 03:16:00 PM EDT [facility] Name Value Range Interpretation Code Description Data Sulma rce(s) Supporting Document(s ) SARS-CoV-2 [facility] RNA Resp Ql TAO+probe This lab was ordered by [facility] and reported by [facility]. ID Date Data Source [id number] 09/17/2019 03:52:00 AM EDT [facility] Name Value Range Interpretation Code Description Data Sulma rce(s) Supporting Document(s ) SARS-CoV-2 [facility] RNA Resp Health System Ql TAO+probe This lab was ordered by [facility] a nd reported by [facility]. ID Date Data Source [id number] 08/27/2019 08:58:00 PM EDT [facility] Name Value Range Interpretation Description Data Sup porting Code Source(s) Document(s ) SARS-CoV-2 ID [facility] NOW REPORTABLE This lab was ordered by [facility] and reported by [facility]. ID Date Data Source [id number] 08/24/2019 07:00:00 AM EDT [facility] Name Value Range Interpretation Code Description Data Sulma rce(s) Supporting Document(s ) SARS-COV-2 [facility] RNA RESP Diagnostics QL TAO+PROBE This lab was ordered by [facility] a nd reported by [facility]. ID Date Data Source [id number] 06/27/2019 05:30:00 AM EST [facility] 0 Name Value Range Interpretation Description [...] by Test d">Urine Medical strip Specific Center [place] </content><= 1.005 L<content styleCode="Ana lics"> (1.015-1.025 )</content> [...] lics"> (NEGATIVE )</content> ID Date Data Source MROUTINECCDA.[id number] 06/27/2019 05:30:00 AM [facility] -0400 Name Value Range Interpretation Description Data Sup porting Code Source(s) Document(s ) Cannabinoids <content Saint [Presence] in styleCode="Lauren Liangs Urine by Screen d">Cannabinoid Medical method >50 ng/mL s Center </content>NEGA TIVE NG/ML (Reference Range: not available)<br/ > ID Date Data Source Liver 06/27/2019 12:56:00 AM [facility] Profile.[id number] Name Value Range Interpretation Description Data Sup [...] s"> (38-126 IU/L)</content> ID Date Data Source [id number] 06/27/2019 12:56:00 AM EST Health system Name Value Range Interpretation Description Data Sup porting Code Source(s) Document(s ) Triglyceride < 150 Above high normal <content Saint [Mass/volume] in styleCode="Lauren Sean Serum or Plasma d">Triglycerid [facility] Center </content>152 MG/DL H<content styleCode="Ana lics"> (< 150 MG/DL)</conten t> UNK < 100 Above high normal <content Saint styleCode="Lauren Sean d">LDL-Cholest [facility] </content>101 MG/DL H<content styleCode="Ana lics"> (< 100 MG/DL)</conten t> Cholesterol -<200 <content Saint [Mass/volume] in styleCode="Lauren Sean Serum or Plasma d">Cholesterol Medical </content>180 Center MG/DL<content styleCode="Ana lics"> (-<200 MG/DL)</conten t> UNK > 60 Below low normal <content Saint styleCode="Lauren Sean d">HDL- Medical Cholesterol Center </content>49 MG/DL L<content styleCode="Ana lics"> (> 60 MG/DL)</conten t> ID Date Data Source HematologyRou.[id number] 06/27/2019 12:56:00 AM [facility] 0500 Name Value Range Interpretation Description Data [...] (0.0 KCUMM)</content > ID Date Data Source GFR(Creatinine).[id number] 06/27/2019 12:56:00 AM EST [facility] 0-0500 Name Value Range Interpretation Code Description Data Sulma rce(s) Supporting Document(s ) UNK > 60 <content [facility] styleCode="Bold"> Medical Cent er EGFR </content>106 GFR<content styleCode="Italic s"> (> 60 GFR)</content> ID Date Data Source CHMROUTINECCDA.[id number] 06/27/2019 12:56:00 AM EST [facility] -0500 Name Value Range Interpretation Code Description Data Sulma rce(s) Supporting Document(s ) UNK 4.2-5.8 <content [facility] styleCode="Bold" Medical Cente r >Hemoglobin A1C </content>5.8 %<content styleCode="Itali cs"> (4.2-5.8 %)</content> ID Date Data Source [id number] 06/27/2019 12:56:00 AM [facility] Name Value Range Interpretation Description Data Sup porting Code Source(s) Document(s ) Sodium 137-145 <content Saint [Moles/volume] in styleCode="Bold"> [facility] Serum or Plasma Sodium Medical </content>138 Center MEQ/L<content styleCode="Italic s"> (137-145 MEQ/L)</content> Potassium 3.5-5.3 <content Saint [Moles/volume] in styleCode="Bold"> [facility] Serum or Plasma Potassium Medical </content>4.2 Center MEQ/L<content styleCode="Italic s"> (3.5-5.3 MEQ/L)</content> UNK 9-20 <content Saint styleCode="Bold"> [facility] BUN </content>18 Medical MG/DL<content Center styleCode="Italic [...] Source(s) Diastolic blood 85 mmHg 85 mmHg [facility] Systolic blood 131 mmHg 131 mmHg [facility] Respiratory rate 18 bpm 18 bpm [facility] Heart rate 72 bpm 72 bpm [facility] Body temperature 97.5 Fahrenheit 97.5 Fahrenhei t [facility] Heart rate 70 bpm 70 bpm [facility] Body temperature 97.5 Fahrenheit 97.5 Fahrenhei t [facility] Diastolic blood 92 mmHg 92 mmHg [facility] Systolic blood 138 mmHg 138 mmHg [facility] Respiratory rate 18 bpm 18 bpm [facility] Diastolic blood 105 mmHg 105 mmHg [facility] Systolic blood 150 mmHg 150 mmHg [facility] Respiratory rate 18 bpm 18 bpm [facility] Heart rate 86 bpm 86 bpm [facility] Body temperature 97.5 Fahrenheit 97.5 Fahrenhei t [facility] Diastolic blood 86 mmHg 86 mmHg [facility] Systolic blood 140 mmHg 140 mmHg [facility] Respiratory rate 18 bpm 18 bpm [facility] Heart rate 86 bpm 86 bpm [facility] Body temperature 97.5 Fahrenheit 97.5 Fahrenhei t [facility] Respiratory rate 18 bpm 18 bpm [facility] Body temperature 98.2 Fahrenheit 98.2 Fahrenhei t [facility] Diastolic blood 83 mmHg 83 mmHg [facility] Systolic blood 129 mmHg 129 mmHg [facility] Heart rate 87 bpm 87 bpm [facility] Diastolic blood 67 mmHg 67 mmHg [facility] Systolic blood 120 mmHg 120 mmHg [facility] Heart rate 83 bpm 83 bpm [facility] Diastolic blood 84 mmHg 84 mmHg [facility] Systolic blood 121 mmHg 121 mmHg [facility] Respiratory rate 18 bpm 18 bpm [facility] Heart rate 79 bpm 79 bpm [facility] Body temperature 97.2 Fahrenheit 97.2 Fahrenhei t [facility] Diastolic blood 88 mmHg 88 mmHg [facility] Systolic blood 145 mmHg 145 mmHg [facility] Respiratory rate 18 bpm 18 bpm [facility] Heart rate 80 bpm 80 bpm [facility] Body temperature 98.4 Fahrenheit 98.4 Fahrenhei t [facility] Diastolic blood 78 mmHg 78 mmHg [facility] Systolic blood 124 mmHg 124 mmHg [facility] Respiratory rate 18 bpm 18 bpm [facility] Heart rate 76 bpm 76 bpm [facility] Body temperature 97.8 Fahrenheit 97.8 Fahrenhei t [facility] Diastolic blood 80 mmHg 80 mmHg [facility] Systolic blood 117 mmHg 117 mmHg [facility] Respiratory rate 18 bpm 18 bpm [facility] Heart rate 72 bpm 72 bpm [facility] Body temperature 97.8 Fahrenheit 97.8 Fahrenhei t [facility] Diastolic blood 79 mmHg 79 mmHg [facility] Systolic blood 114 mmHg 114 mmHg [facility] Respiratory rate 18 bpm 18 bpm [facility] Heart rate 79 bpm 79 bpm [facility] Body temperature 98.1 Fahrenheit 98.1 Fahrenhei t [facility] Diastolic blood 79 mmHg 79 mmHg [facility] Systolic blood 122 mmHg 122 mmHg [facility] Respiratory rate 18 bpm 18 bpm [facility] Heart rate 73 bpm 73 bpm [facility] Body temperature 98.1 Fahrenheit 98.1 [facility] Diastolic blood 86 mmHg 86 mmHg [facility] Systolic blood 135 mmHg 135 mmHg [facility] Heart rate 82 bpm 82 bpm [facility] Diastolic blood 88 mmHg 88 mmHg [facility] Systolic blood 151 mmHg 151 mmHg [facility] Respiratory rate 20 bpm 20 bpm [facility] Heart rate 77 bpm 77 bpm [facility] Body temperature 98.2 [facility] 98.2 [facility] Body temperature 37.191883 Malia 37.913268 Malia [facility] Respiratory rate 20 /min 20 /min [facility] 99 % 99 % [facility] saturation in Medical Arterial blood Center by Pulse oximetry Heart rate 71 /min 71 /min [facility] Diastolic blood 59 mm[Hg] 59 mm[Hg] [facility] pressure Medical Center Systolic blood 99 mm[Hg] 99 mm[Hg] [facility] Medical [place] Body temperature 36.585322 Malia 36.468226 Malia [facility] Respiratory rate 18 /min 18 /min [facility] 98 % 98 % [facility] saturation in Medical Arterial blood Center by Pulse oximetry Heart rate 75 /min 75 /min [facility] Diastolic blood 70 mm[Hg] 70 mm[Hg] [facility] pressure Medical Center Systolic blood 126 mm[Hg] 126 mm[Hg] [facility] Medical Center Body temperature 36.615113 Malia 36.876952 Malia [facility] Respiratory rate 18 /min 18 /min [facility] 98 % 98 % [facility] saturation in Medical Arterial blood Center by Pulse oximetry Heart rate 80 /min 80 /min [facility] Diastolic blood 75 mm[Hg] 75 mm[Hg] [facility] pressure Medical Center Systolic blood 130 mm[Hg] 130 mm[Hg] [facility] Medical Center ID Date Data Source [id number] 07/07/2019 10:33:15 PM EDT [facility] Name Value Range Interpretation Code Description Data Source(s) Body weight Measured 197 lb 197 lb [facility] ID Date Data Source [id number] 06/27/2019 03:34:24 PM EST [facility] Name Value Range Interpretation Code Description Data Source(s) Body weight Measured 197 lb 197 lb [facility]
[2020-02-02] MEDS: QUEtiapine FUMARATE 200 MG TABLET PO SCH (21:57)
[2020-02-02] MEDS: THIAMINE HCL 100 MG TABLET (FP) PO SCH (21:57)
[2020-02-02] MEDS: MELATONIN 5 MG TABLETS PO SCH (21:58)
[2020-02-03] MEDS: PRENATAL VITAMINS W/ FOLIC ACID TABLET (FP) PO SCH (10:40)
[2020-02-03] MEDS: HYDROCHLOROTHIAZIDE 25 MG TABLET (FP) PO SCH (10:42)
[2020-02-03] MEDS: FLUoxetine HCL 20 MG CAPSULE PO SCH (10:42)
[2020-02-03] MEDS: ENALAPRIL MALEATE 10 MG TABLET PO SCH (10:42)
[2020-02-03] MEDS: NICOTINE 7 MG/24 HOURS TOPICAL PATCH TD SCH (10:43)
[2020-02-03] MEDS: MELATONIN 5 MG TABLETS PO SCH (21:54)
[2020-02-03] MEDS: QUEtiapine FUMARATE 200 MG TABLET PO SCH (21:54)
[2020-02-03] MEDS: THIAMINE HCL 100 MG TABLET (FP) PO SCH (21:54)
[2020-02-04] MEDS: FLUoxetine HCL 20 MG CAPSULE PO SCH (10:28)
[2020-02-04] MEDS: HYDROCHLOROTHIAZIDE 25 MG TABLET (FP) PO SCH (10:28)
[2020-02-04] MEDS: ENALAPRIL MALEATE 10 MG TABLET PO SCH (10:29)
[2020-02-04] MEDS: NICOTINE 7 MG/24 HOURS TOPICAL PATCH TD SCH (10:29)
[2020-02-04] MEDS: PRENATAL VITAMINS W/ FOLIC ACID TABLET (FP) PO SCH (10:29)
[2020-02-04] MEDS: MELATONIN 5 MG TABLETS PO SCH (21:06)
[2020-02-04] MEDS: THIAMINE HCL 100 MG TABLET (FP) PO SCH (21:06)
[2020-02-04] MEDS: QUEtiapine FUMARATE 200 MG TABLET PO SCH (21:06)
[2020-02-05] MEDS: FLUoxetine HCL 20 MG CAPSULE PO SCH (10:27)
[2020-02-05] MEDS: PRENATAL VITAMINS W/ FOLIC ACID TABLET (FP) PO SCH (10:27)
[2020-02-05] MEDS: NICOTINE 7 MG/24 HOURS TOPICAL PATCH TD SCH (10:27)
[2020-02-05] MEDS: HYDROCHLOROTHIAZIDE 25 MG TABLET (FP) PO SCH (10:27)
[2020-02-05] MEDS: ENALAPRIL MALEATE 10 MG TABLET PO SCH (10:27)
[2020-02-05] MEDS: MELATONIN 5 MG TABLETS PO SCH (21:41)
[2020-02-05] MEDS: QUEtiapine FUMARATE 200 MG TABLET PO SCH (21:41)
[2020-02-05] MEDS: THIAMINE HCL 100 MG TABLET (FP) PO SCH (21:42)
[2020-02-06] MEDS: ENALAPRIL MALEATE 10 MG TABLET PO SCH (10:45)
[2020-02-06] MEDS: FLUoxetine HCL 20 MG CAPSULE PO SCH (10:45)
[2020-02-06] MEDS: NICOTINE 7 MG/24 HOURS TOPICAL PATCH TD SCH (10:45)
[2020-02-06] MEDS: PRENATAL VITAMINS W/ FOLIC ACID TABLET (FP) PO SCH (10:45)
[2020-02-06] MEDS: HYDROCHLOROTHIAZIDE 25 MG TABLET (FP) PO SCH (10:45)
[2020-02-06] MEDS: THIAMINE HCL 100 MG TABLET (FP) PO SCH (21:05)
[2020-02-06] MEDS: QUEtiapine FUMARATE 200 MG TABLET PO SCH (21:05)
[2020-02-06] MEDS: MELATONIN 5 MG TABLETS PO SCH (21:05)
[2020-02-07 09:06] VITALS: BP 116/56; PULSE 69; TEMP 97.3
[2020-02-07] MEDS: PRENATAL VITAMINS W/ FOLIC ACID TABLET (FP) PO SCH (10:00)
[2020-02-07] MEDS: ENALAPRIL MALEATE 10 MG TABLET PO SCH (10:00)
[2020-02-07] MEDS: NICOTINE 7 MG/24 HOURS TOPICAL PATCH TD SCH (10:01)
[2020-02-07] MEDS: FLUoxetine HCL 20 MG CAPSULE PO SCH (10:01)
[2020-02-07] MEDS: HYDROCHLOROTHIAZIDE 25 MG TABLET (FP) PO SCH (10:01)
--- NOTE | 2020-02-07 11:14 | DS ---
[facility] Rehab Discharge Summary - [facility] Rehab Discharge Summary Admission Date: 02/02/20 Discharge Date: 02/07/20 - History Present History: Alcohol dependence, Cocaine dependence Pertinent Past History: HTN HLD Scchizophrenia - Discharge Physical Exam Vital Signs: Vital Signs Temperature 97.3 F L 02/07/20 08:51 Pulse Rate 69 02/07/20 08:51 Respiratory Rate 18 02/07/20 08:51 Blood Pressure 116/56 L 02/07/20 08:51 O2 Sat by Pulse Oximetry (%) 97 02/07/20 06:45 Pertinent Admission Physical Exam Findings: s/p detox [address] [place] - Treatment Discharge Condition: Discharge condition good, Rehabilitated safely, Outpatient referral accepted Hospital Course: Pt discharging today . Pt met with his counselor , Mr Naya Rivera and has been referred to [facility] behavioral Health program for aftercare. - Medication Discharge Medications: Ambulatory Orders Quetiapine Fumarate [Seroquel -] 400 mg PO HS 11/22/13 Fluoxetine HCl [Prozac -] 40 mg PO DAILY 12/27/17 Quetiapine Fumarate [Seroquel -] 200 mg PO DAILY 12/27/17 Hydrochlorothiazide 25 mg PO DAILY 02/07/19 Enalapril Maleate [Vasotec -] 10 mg PO DAILY 06/26/19 - Medication-Assisted Treatment (MAT) Medication-Assisted Treatment (MAT): No - Discharge Instructions Diet, activity, other medical instructions: Diet:RICO Activity: oob ad margot Other medical instructions:follow up with your ACT Team/[facility] for psych and medical management as scheduled. - Diagnosis (1) Alcohol use disorder Status: Chronic (2) Cocaine dependence Status: Chronic Qualifiers: Substance use status: uncomplicated (3) HTN (hypertension) Status: Chronic Qualifiers: Hypertension type: essential hypertension (4) Hyperlipidemia Status: Chronic Qualifiers: Hyperlipidemia type: unspecified Qualified Code(s): E78.5 - Hyperlipidemia, unspecified (5) Nicotine dependence, uncomplicated Status: Chronic Qualifiers: Nicotine product type: cigarettes (6) Obesity (BMI 30-39.9) Status: Chronic - Follow-up Referral Minutes to complete discharge: 25 - AMA Did Patient Leave Against Medical Advice: No Additional Comments: Pt states "i have all my medication in my property". Will f/u with primary providers for management.
== END 2020-02-07 10:25 | disposition home or self-care (01) | DRG 772 ==
LOC: YASAS 15:51 → Y3W 15:58
PROVIDERS: ADMIT Allergy & Immunology; ATTEND Allergy & Immunology
PROC: HZ42ZZZ Group Counseling for Substance Abuse Treatment, Cognitive-Behavioral (ICD-10-PCS; principal; 2020-02-02)
DX: F10.20 Alcohol dependence, uncomplicated (principal); F14.20 Cocaine dependence, uncomplicated; F17.210 Nicotine dependence, cigarettes, uncomplicated; F20.9 Schizophrenia, unspecified; I10 Essential (primary) hypertension; E78.5 Hyperlipidemia, unspecified; E66.9 Obesity, unspecified

== ENCOUNTER 2020-06-07 09:30 | Inpatient (IN) | payer OTHER ==
[2020-06-07] MEDS ORDERED: chlordiazePOXIDE HCL 25 MG CAPSULE ONE (10:18)
[2020-06-07] MEDS ORDERED: ACETAMINOPHEN 325 MG TABLET (FP) PO PRN (10:31)
[2020-06-07] MEDS ORDERED: MAG HYDROX/AL HYDROX/SIMETH 30 ML UNIT-DOSE CUP PO PRN (10:31)
[2020-06-07] MEDS ORDERED: METHOCARBAMOL 500 MG TABLET PO PRN (10:31)
[2020-06-07] MEDS ORDERED: MENTHOL/PHENOL 1 EACH UD MM PRN (10:31)
[2020-06-07] MEDS ORDERED: chlordiazePOXIDE HCL 25 MG CAPSULE PO PRN (10:31)
[2020-06-07] MEDS ORDERED: BISMUTH SUBSALICYLATE 524 MG/30 ML UD PO PRN (10:31)
[2020-06-07] MEDS ORDERED: IBUPROFEN 400 MG TABLET (FP) PO PRN (10:31)
[2020-06-07] MEDS ORDERED: NICOTINE POLACRILEX 2 MG GUM BUC PRN (10:31)
[2020-06-07] MEDS ORDERED: ONDANSETRON *ODT* 4 MG TABLET SL PRN (10:31)
[2020-06-07] MEDS ORDERED: MAGNESIUM CITRATE 300 ML BOTTLE PO PRN (10:31)
[2020-06-07] MEDS ORDERED: MAGNESIUM HYDROX 2400MG/30ML ORAL SUSPENSION 30 ML CUP PO PRN (10:31)
[2020-06-07 10:32] VITALS: BMI 31.3
[2020-06-07] MEDS: HYDROCHLOROTHIAZIDE 25 MG TABLET (FP) PO SCH (12:01)
[2020-06-07] MEDS: chlordiazePOXIDE HCL 25 MG CAPSULE PO SCH ×3 (12:01→22:27)
[2020-06-07] MEDS: ENALAPRIL MALEATE 10 MG TABLET PO SCH (12:02)
[2020-06-07] MEDS: PRENATAL VITAMINS W/ FOLIC ACID TABLET (FP) PO SCH (12:02)
[2020-06-07 14:12] LABS: HEMATOCRIT 40.5 % (35.4-49); HEMOGLOBIN 13.9 GM/dL (11.7-16.9); MCH 31.9 pg (25.7-33.7); MCHC 34.4 g/dl (32.0-35.9); MEAN CELL VOLUME 92.9 fl (80-96); MEAN PLT VOLUME 9.1 fl (7.5-11.1); PLATELET COUNT 270 K/MM3 (134-434); POTASSIUM 4.1 mmol/L (3.5-5.1); RBC 4.36 M/mm3 (4.00-5.60); RDW 15.3 % (11.9-15.9); WHITE BLOOD COUNT 12.4 K/mm3 (4.0-10.0)
[2020-06-07 14:18] LABS: CALCIUM 9.6 mg/dL (8.5-10.1)
[2020-06-07 14:19] LABS: ALBUMIN 4.3 g/dl (3.4-5.0)
[2020-06-07 14:22] LABS: CREATININE 1.1 mg/dL (0.55-1.3)
[2020-06-07 14:23] LABS: BILIRUBIN,TOTAL 1.2 mg/dL (0.2-1)
[2020-06-07 14:24] LABS: TOT PROT 8.3 g/dl (6.4-8.2)
[2020-06-07] MEDS: hydrOXYzine PAMOATE 25 MG CAPSULE (FP) PO SCH ×3 (14:25→22:28)
[2020-06-07] MEDS: FLUoxetine HCL 20 MG CAPSULE PO SCH (18:26)
[2020-06-07] MEDS: QUEtiapine FUMARATE 400 MG TABLET PO SCH (22:28)
[2020-06-07] MEDS: MELATONIN 5 MG TABLETS PO SCH (22:28)
[2020-06-07] MEDS: THIAMINE HCL 100 MG TABLET (FP) PO SCH (22:28)
[2020-06-08] MEDS: hydrOXYzine PAMOATE 25 MG CAPSULE (FP) PO SCH ×5 (06:06→22:29)
[2020-06-08] MEDS: chlordiazePOXIDE HCL 25 MG CAPSULE PO SCH ×4 (06:07→22:36)
[2020-06-08] MEDS: PRENATAL VITAMINS W/ FOLIC ACID TABLET (FP) PO SCH (11:08)
[2020-06-08] MEDS: ENALAPRIL MALEATE 10 MG TABLET PO SCH (11:08)
[2020-06-08] MEDS: FLUoxetine HCL 20 MG CAPSULE PO SCH (11:08)
[2020-06-08] MEDS: HYDROCHLOROTHIAZIDE 25 MG TABLET (FP) PO SCH (11:08)
[2020-06-08 11:13] LABS: HEMATOCRIT 39.1 % (35.4-49); HEMOGLOBIN 13.7 GM/dL (11.7-16.9); MCH 32.7 pg (25.7-33.7); MEAN CELL VOLUME 93.5 fl (80-96); MEAN PLT VOLUME 8.8 fl (7.5-11.1); PLATELET COUNT 263 K/MM3 (134-434); RBC 4.19 M/mm3 (4.00-5.60); RDW 15.1 % (11.9-15.9); WHITE BLOOD COUNT 9.4 K/mm3 (4.0-10.0)
[2020-06-08 11:14] LABS: PROTHROMBIN TIME (PATIENT) 12.3 SEC (9.7-13.0)
[2020-06-08 11:15] LABS: POTASSIUM 3.4 mmol/L (3.5-5.1)
[2020-06-08 11:17] LABS: ALBUMIN 3.6 g/dl (3.4-5.0); BLOOD UREA NITROGEN 20.6 mg/dL (7-18); CALCIUM 8.9 mg/dL (8.5-10.1)
[2020-06-08 11:20] LABS: CREATININE 2.3 mg/dL (0.55-1.3)
[2020-06-08 11:22] LABS: BILIRUBIN,TOTAL 0.6 mg/dL (0.2-1); TOT PROT 7.4 g/dl (6.4-8.2)
[2020-06-08] MEDS ORDERED: POTASSIUM CHLORIDE ORAL LIQUID 20 MEQ/15 ML PO ONE (15:22)
[2020-06-08 18:57] LABS: HIV INTERPRETATION NEGATIVE (NEGATIVE)
[2020-06-08] MEDS: MELATONIN 5 MG TABLETS PO SCH (22:29)
[2020-06-08] MEDS: THIAMINE HCL 100 MG TABLET (FP) PO SCH (22:29)
[2020-06-08] MEDS: QUEtiapine FUMARATE 400 MG TABLET PO SCH (22:29)
[2020-06-09] MEDS: hydrOXYzine PAMOATE 25 MG CAPSULE (FP) PO SCH ×5 (05:38→22:40)
[2020-06-09] MEDS: chlordiazePOXIDE HCL 25 MG CAPSULE PO SCH ×4 (05:38→22:40)
[2020-06-09] MEDS: ENALAPRIL MALEATE 10 MG TABLET PO SCH (10:58)
[2020-06-09] MEDS: FLUoxetine HCL 20 MG CAPSULE PO SCH (10:58)
[2020-06-09] MEDS: HYDROCHLOROTHIAZIDE 25 MG TABLET (FP) PO SCH (10:59)
[2020-06-09] MEDS: PRENATAL VITAMINS W/ FOLIC ACID TABLET (FP) PO SCH (10:59)
[2020-06-09 12:17] LABS: POTASSIUM 3.6 mmol/L (3.5-5.1)
[2020-06-09 12:22] LABS: BLOOD UREA NITROGEN 28.8 mg/dL (7-18); CALCIUM 8.9 mg/dL (8.5-10.1)
[2020-06-09 12:26] LABS: CREATININE 1.5 mg/dL (0.55-1.3)
[2020-06-09] MEDS: THIAMINE HCL 100 MG TABLET (FP) PO SCH (22:40)
[2020-06-09] MEDS: MELATONIN 5 MG TABLETS PO SCH (22:41)
[2020-06-09] MEDS: QUEtiapine FUMARATE 400 MG TABLET PO SCH (22:41)
[2020-06-10] MEDS ORDERED: chlordiazePOXIDE HCL 10 MG CAPSULE PO PRN
[2020-06-10] MEDS: hydrOXYzine PAMOATE 25 MG CAPSULE (FP) PO SCH ×5 (05:36→22:06)
[2020-06-10] MEDS: chlordiazePOXIDE HCL 10 MG CAPSULE PO SCH ×4 (05:36→22:10)
[2020-06-10] MEDS ORDERED: cloNIDine HCL 0.1 MG TABLET PO PRN (10:38)
[2020-06-10] MEDS: FLUoxetine HCL 20 MG CAPSULE PO SCH (10:42)
[2020-06-10] MEDS: PRENATAL VITAMINS W/ FOLIC ACID TABLET (FP) PO SCH (10:42)
[2020-06-10] MEDS: ENALAPRIL MALEATE 10 MG TABLET PO SCH (10:42)
[2020-06-10] MEDS: HYDROCHLOROTHIAZIDE 25 MG TABLET (FP) PO SCH (10:42)
[2020-06-10] MEDS: QUEtiapine FUMARATE 400 MG TABLET PO SCH (22:06)
[2020-06-10] MEDS: THIAMINE HCL 100 MG TABLET (FP) PO SCH (22:06)
[2020-06-10] MEDS: ACETAMINOPHEN 325 MG TABLET (FP) PO PRN (22:07)
[2020-06-10] MEDS: MELATONIN 5 MG TABLETS PO SCH (22:11)
[2020-06-11] MEDS: chlordiazePOXIDE HCL 10 MG CAPSULE PO SCH ×2 (06:53→18:00)
[2020-06-11] MEDS: hydrOXYzine PAMOATE 25 MG CAPSULE (FP) PO SCH ×5 (06:53→22:08)
[2020-06-11] MEDS: ENALAPRIL MALEATE 10 MG TABLET PO SCH (10:16)
[2020-06-11] MEDS: FLUoxetine HCL 20 MG CAPSULE PO SCH (10:16)
[2020-06-11] MEDS: PRENATAL VITAMINS W/ FOLIC ACID TABLET (FP) PO SCH (10:16)
[2020-06-11] MEDS: HYDROCHLOROTHIAZIDE 25 MG TABLET (FP) PO SCH (10:16)
[2020-06-11] MEDS ORDERED: MASKS NR ONE (19:10)
[2020-06-11] MEDS: QUEtiapine FUMARATE 400 MG TABLET PO SCH (22:08)
[2020-06-11] MEDS: THIAMINE HCL 100 MG TABLET (FP) PO SCH (22:08)
[2020-06-11] MEDS: MELATONIN 5 MG TABLETS PO SCH (22:09)
[2020-06-12] MEDS ORDERED: chlordiazePOXIDE HCL 10 MG CAPSULE PO ONE (05:00)
[2020-06-12] MEDS: hydrOXYzine PAMOATE 25 MG CAPSULE (FP) PO SCH ×2 (06:27→10:38)
[2020-06-12] MEDS: ACETAMINOPHEN 325 MG TABLET (FP) PO PRN (07:07)
[2020-06-12 09:47] VITALS: BP 159/94; PULSE 80; TEMP 96.4
[2020-06-12] MEDS: HYDROCHLOROTHIAZIDE 25 MG TABLET (FP) PO SCH (10:38)
[2020-06-12] MEDS: PRENATAL VITAMINS W/ FOLIC ACID TABLET (FP) PO SCH (10:38)
[2020-06-12] MEDS: FLUoxetine HCL 20 MG CAPSULE PO SCH (10:38)
[2020-06-12] MEDS: ENALAPRIL MALEATE 10 MG TABLET PO SCH (10:39)
== END 2020-06-12 12:41 | disposition other institution (70) | DRG 774 ==
LOC: YASAS 09:30 → Y6N 11:35
PROVIDERS: ADMIT Allergy & Immunology; ATTEND Allergy & Immunology
PROC: HZ2ZZZZ Detoxification Services for Substance Abuse Treatment (ICD-10-PCS; principal; 2020-06-07)
DX: F10.230 Alcohol dependence with withdrawal, uncomplicated (principal); F14.20 Cocaine dependence, uncomplicated; F17.210 Nicotine dependence, cigarettes, uncomplicated; F19.282 Other psychoactive substance dependence with psychoactive substance-induced sleep disorder; F19.24 Other psychoactive substance dependence with psychoactive substance-induced mood disorder; F20.9 Schizophrenia, unspecified; E78.5 Hyperlipidemia, unspecified; I10 Essential (primary) hypertension; E66.9 Obesity, unspecified; Z68.31 Body mass index [BMI] 31.0-31.9, adult; Z97.0 Presence of artificial eye; Z56.0 Unemployment, unspecified; Z59.0 Homelessness
CPT/HCPCS: 36415; 80048; 80053; 85027; 85610; 86780; 87389; C9803; U0003

== ENCOUNTER 2020-06-12 12:53 | Inpatient (IN) | payer OTHER ==
[2020-06-12] MEDS ORDERED: LOPERAMIDE HCL 2 MG CAPSULE PO PRN (13:35)
[2020-06-12] MEDS ORDERED: IBUPROFEN 400 MG TABLET (FP) PO PRN (13:35)
[2020-06-12] MEDS ORDERED: guaiFENesin 200 MG/10 ML 10 ML UNIT-DOSE CUPS PO PRN (13:35)
[2020-06-12] MEDS ORDERED: NICOTINE POLACRILEX 2 MG GUM BUC PRN (13:35)
[2020-06-12] MEDS ORDERED: MAGNESIUM HYDROX 2400MG/30ML ORAL SUSPENSION 30 ML CUP PO PRN (13:35)
[2020-06-12] MEDS ORDERED: P-EPHED 60MG/TRIPROLIDI 2.5MG TABLET PO PRN (13:35)
[2020-06-12] MEDS ORDERED: MAGNESIUM CITRATE 300 ML BOTTLE PO PRN (13:35)
[2020-06-12] MEDS ORDERED: MENTHOL/PHENOL 1 EACH UD MM PRN (13:35)
[2020-06-12] MEDS ORDERED: MAG HYDROX/AL HYDROX/SIMETH 30 ML UNIT-DOSE CUP PO PRN (13:35)
[2020-06-12] MEDS: QUEtiapine FUMARATE 400 MG TABLET PO SCH (21:29)
[2020-06-12] MEDS: THIAMINE HCL 100 MG TABLET (FP) PO SCH (21:30)
[2020-06-12] MEDS: traZODone HCL 100 MG TABLET (FP) PO SCH (21:30)
[2020-06-12] MEDS: MELATONIN 5 MG TABLETS PO SCH (22:06)
[2020-06-13] MEDS: NICOTINE 7 MG/24 HOURS TOPICAL PATCH TD SCH (09:43)
[2020-06-13] MEDS: QUEtiapine FUMARATE 100 MG TABLET (FP) PO SCH (09:43)
[2020-06-13] MEDS: HYDROCHLOROTHIAZIDE 25 MG TABLET (FP) PO SCH (09:43)
[2020-06-13] MEDS: PRENATAL VITAMINS W/ FOLIC ACID TABLET (FP) PO SCH (09:43)
[2020-06-13] MEDS: FLUoxetine HCL 20 MG CAPSULE PO SCH (14:15)
[2020-06-13] MEDS: ENALAPRIL MALEATE 10 MG TABLET PO SCH (14:15)
[2020-06-13] MEDS: THIAMINE HCL 100 MG TABLET (FP) PO SCH (21:21)
[2020-06-13] MEDS: QUEtiapine FUMARATE 400 MG TABLET PO SCH (21:21)
[2020-06-13] MEDS: traZODone HCL 100 MG TABLET (FP) PO SCH (21:21)
[2020-06-13] MEDS: hydrOXYzine PAMOATE 25 MG CAPSULE (FP) PO PRN (21:22)
[2020-06-13] MEDS: MELATONIN 5 MG TABLETS PO SCH (21:30)
[2020-06-13] MEDS: ACETAMINOPHEN 325 MG TABLET (FP) PO PRN (23:53)
[2020-06-14] MEDS: HYDROCHLOROTHIAZIDE 25 MG TABLET (FP) PO SCH (09:42)
[2020-06-14] MEDS: FLUoxetine HCL 20 MG CAPSULE PO SCH (09:42)
[2020-06-14] MEDS: PRENATAL VITAMINS W/ FOLIC ACID TABLET (FP) PO SCH (09:42)
[2020-06-14] MEDS: NICOTINE 7 MG/24 HOURS TOPICAL PATCH TD SCH (09:42)
[2020-06-14] MEDS: ENALAPRIL MALEATE 10 MG TABLET PO SCH (09:42)
[2020-06-14] MEDS: QUEtiapine FUMARATE 100 MG TABLET (FP) PO SCH (09:42)
[2020-06-14] MEDS: ACETAMINOPHEN 325 MG TABLET (FP) PO PRN (21:25)
[2020-06-14] MEDS: THIAMINE HCL 100 MG TABLET (FP) PO SCH (21:26)
[2020-06-14] MEDS: traZODone HCL 100 MG TABLET (FP) PO SCH (21:26)
[2020-06-14] MEDS: hydrOXYzine PAMOATE 25 MG CAPSULE (FP) PO PRN (21:26)
[2020-06-14] MEDS: QUEtiapine FUMARATE 400 MG TABLET PO SCH (21:26)
[2020-06-14] MEDS: MELATONIN 5 MG TABLETS PO SCH (21:27)
[2020-06-15] MEDS ORDERED: PT OWN MED DRAWER 7, Y5N ONE (09:06)
[2020-06-15] MEDS: PRENATAL VITAMINS W/ FOLIC ACID TABLET (FP) PO SCH (09:32)
[2020-06-15] MEDS: FLUoxetine HCL 20 MG CAPSULE PO SCH (09:32)
[2020-06-15] MEDS: QUEtiapine FUMARATE 100 MG TABLET (FP) PO SCH (09:33)
[2020-06-15] MEDS: HYDROCHLOROTHIAZIDE 25 MG TABLET (FP) PO SCH (09:33)
[2020-06-15] MEDS: ENALAPRIL MALEATE 10 MG TABLET PO SCH (09:33)
[2020-06-15] MEDS: NICOTINE 7 MG/24 HOURS TOPICAL PATCH TD SCH (09:34)
[2020-06-15 10:46] LABS: POTASSIUM 3.8 mmol/L (3.5-5.1)
[2020-06-15 10:50] LABS: CALCIUM 9.3 mg/dL (8.5-10.1)
[2020-06-15 10:51] LABS: ALBUMIN 3.8 g/dl (3.4-5.0); BLOOD UREA NITROGEN 12.7 mg/dL (7-18)
[2020-06-15 10:54] LABS: CREATININE 1.2 mg/dL (0.55-1.3)
[2020-06-15 10:57] LABS: BILIRUBIN,TOTAL 0.9 mg/dL (0.2-1)
[2020-06-15] MEDS: THIAMINE HCL 100 MG TABLET (FP) PO SCH (21:11)
[2020-06-15] MEDS: traZODone HCL 100 MG TABLET (FP) PO SCH (21:11)
[2020-06-15] MEDS: MELATONIN 5 MG TABLETS PO SCH (21:11)
[2020-06-15] MEDS: QUEtiapine FUMARATE 400 MG TABLET PO SCH (21:11)
[2020-06-15] MEDS: hydrOXYzine PAMOATE 25 MG CAPSULE (FP) PO PRN (21:12)
[2020-06-16] MEDS: PRENATAL VITAMINS W/ FOLIC ACID TABLET (FP) PO SCH (09:33)
[2020-06-16] MEDS: FLUoxetine HCL 20 MG CAPSULE PO SCH (09:33)
[2020-06-16] MEDS: QUEtiapine FUMARATE 100 MG TABLET (FP) PO SCH (09:33)
[2020-06-16] MEDS: HYDROCHLOROTHIAZIDE 25 MG TABLET (FP) PO SCH (09:33)
[2020-06-16] MEDS: ENALAPRIL MALEATE 10 MG TABLET PO SCH (09:33)
[2020-06-16] MEDS: NICOTINE 7 MG/24 HOURS TOPICAL PATCH TD SCH (09:34)
[2020-06-16] MEDS: QUEtiapine FUMARATE 400 MG TABLET PO SCH (22:13)
[2020-06-16] MEDS: hydrOXYzine PAMOATE 25 MG CAPSULE (FP) PO PRN (22:13)
[2020-06-16] MEDS: traZODone HCL 100 MG TABLET (FP) PO SCH (22:13)
[2020-06-16] MEDS: THIAMINE HCL 100 MG TABLET (FP) PO SCH (22:13)
[2020-06-16] MEDS: MELATONIN 5 MG TABLETS PO SCH (22:14)
[2020-06-17] MEDS: PRENATAL VITAMINS W/ FOLIC ACID TABLET (FP) PO SCH (09:22)
[2020-06-17] MEDS: ENALAPRIL MALEATE 10 MG TABLET PO SCH (09:22)
[2020-06-17] MEDS: FLUoxetine HCL 20 MG CAPSULE PO SCH (09:22)
[2020-06-17] MEDS: QUEtiapine FUMARATE 100 MG TABLET (FP) PO SCH (09:22)
[2020-06-17] MEDS: HYDROCHLOROTHIAZIDE 25 MG TABLET (FP) PO SCH (09:22)
[2020-06-17] MEDS: NICOTINE 7 MG/24 HOURS TOPICAL PATCH TD SCH (09:23)
[2020-06-17] MEDS: MELATONIN 5 MG TABLETS PO SCH (21:22)
[2020-06-17] MEDS: THIAMINE HCL 100 MG TABLET (FP) PO SCH (21:22)
[2020-06-17] MEDS: QUEtiapine FUMARATE 400 MG TABLET PO SCH (21:22)
[2020-06-17] MEDS: traZODone HCL 100 MG TABLET (FP) PO SCH (21:22)
[2020-06-17] MEDS: hydrOXYzine PAMOATE 25 MG CAPSULE (FP) PO PRN (21:22)
[2020-06-18] MEDS ORDERED: PT OWN MED DRAWER 7, Y5N ONE (09:23)
[2020-06-18] MEDS: ENALAPRIL MALEATE 10 MG TABLET PO SCH (09:51)
[2020-06-18] MEDS: FLUoxetine HCL 20 MG CAPSULE PO SCH (09:51)
[2020-06-18] MEDS: PRENATAL VITAMINS W/ FOLIC ACID TABLET (FP) PO SCH (09:51)
[2020-06-18] MEDS: HYDROCHLOROTHIAZIDE 25 MG TABLET (FP) PO SCH (09:51)
[2020-06-18] MEDS: NICOTINE 7 MG/24 HOURS TOPICAL PATCH TD SCH (09:51)
[2020-06-18] MEDS: QUEtiapine FUMARATE 100 MG TABLET (FP) PO SCH (09:51)
[2020-06-18] MEDS: MELATONIN 5 MG TABLETS PO SCH (21:32)
[2020-06-18] MEDS: THIAMINE HCL 100 MG TABLET (FP) PO SCH (21:32)
[2020-06-18] MEDS: QUEtiapine FUMARATE 400 MG TABLET PO SCH (21:32)
[2020-06-18] MEDS: hydrOXYzine PAMOATE 25 MG CAPSULE (FP) PO PRN (21:32)
[2020-06-18] MEDS: traZODone HCL 100 MG TABLET (FP) PO SCH (21:32)
[2020-06-19] MEDS: HYDROCHLOROTHIAZIDE 25 MG TABLET (FP) PO SCH (09:52)
[2020-06-19] MEDS: ENALAPRIL MALEATE 10 MG TABLET PO SCH (09:52)
[2020-06-19] MEDS: FLUoxetine HCL 20 MG CAPSULE PO SCH (09:52)
[2020-06-19] MEDS: NICOTINE 7 MG/24 HOURS TOPICAL PATCH TD SCH (09:52)
[2020-06-19] MEDS: PRENATAL VITAMINS W/ FOLIC ACID TABLET (FP) PO SCH (09:52)
[2020-06-19] MEDS: QUEtiapine FUMARATE 100 MG TABLET (FP) PO SCH (09:52)
[2020-06-19] MEDS: THIAMINE HCL 100 MG TABLET (FP) PO SCH (21:16)
[2020-06-19] MEDS: hydrOXYzine PAMOATE 25 MG CAPSULE (FP) PO PRN (21:16)
[2020-06-19] MEDS: QUEtiapine FUMARATE 400 MG TABLET PO SCH (21:16)
[2020-06-19] MEDS: traZODone HCL 100 MG TABLET (FP) PO SCH (21:17)
[2020-06-19] MEDS: MELATONIN 5 MG TABLETS PO SCH (21:17)
[2020-06-20] MEDS: NICOTINE 7 MG/24 HOURS TOPICAL PATCH TD SCH (09:50)
[2020-06-20] MEDS: FLUoxetine HCL 20 MG CAPSULE PO SCH (09:50)
[2020-06-20] MEDS: PRENATAL VITAMINS W/ FOLIC ACID TABLET (FP) PO SCH (09:50)
[2020-06-20] MEDS: HYDROCHLOROTHIAZIDE 25 MG TABLET (FP) PO SCH (09:50)
[2020-06-20] MEDS: QUEtiapine FUMARATE 100 MG TABLET (FP) PO SCH (09:50)
[2020-06-20] MEDS: ENALAPRIL MALEATE 10 MG TABLET PO SCH (09:51)
[2020-06-20] MEDS: traZODone HCL 100 MG TABLET (FP) PO SCH (21:43)
[2020-06-20] MEDS: MELATONIN 5 MG TABLETS PO SCH (21:43)
[2020-06-20] MEDS: QUEtiapine FUMARATE 400 MG TABLET PO SCH (21:43)
[2020-06-20] MEDS: hydrOXYzine PAMOATE 25 MG CAPSULE (FP) PO PRN (21:44)
[2020-06-20] MEDS: THIAMINE HCL 100 MG TABLET (FP) PO SCH (21:44)
[2020-06-21] MEDS: PRENATAL VITAMINS W/ FOLIC ACID TABLET (FP) PO SCH (09:56)
[2020-06-21] MEDS: ENALAPRIL MALEATE 10 MG TABLET PO SCH (09:57)
[2020-06-21] MEDS: FLUoxetine HCL 20 MG CAPSULE PO SCH (09:57)
[2020-06-21] MEDS: NICOTINE 7 MG/24 HOURS TOPICAL PATCH TD SCH (09:57)
[2020-06-21] MEDS: HYDROCHLOROTHIAZIDE 25 MG TABLET (FP) PO SCH (09:57)
[2020-06-21] MEDS: QUEtiapine FUMARATE 100 MG TABLET (FP) PO SCH (09:57)
[2020-06-21] MEDS: traZODone HCL 100 MG TABLET (FP) PO SCH (21:25)
[2020-06-21] MEDS: QUEtiapine FUMARATE 400 MG TABLET PO SCH (21:25)
[2020-06-21] MEDS: MELATONIN 5 MG TABLETS PO SCH (21:25)
[2020-06-21] MEDS: THIAMINE HCL 100 MG TABLET (FP) PO SCH (21:25)
[2020-06-21] MEDS: hydrOXYzine PAMOATE 25 MG CAPSULE (FP) PO PRN (21:25)
[2020-06-22] MEDS: PRENATAL VITAMINS W/ FOLIC ACID TABLET (FP) PO SCH (09:45)
[2020-06-22] MEDS: FLUoxetine HCL 20 MG CAPSULE PO SCH (09:46)
[2020-06-22] MEDS: NICOTINE 7 MG/24 HOURS TOPICAL PATCH TD SCH (09:46)
[2020-06-22] MEDS: ENALAPRIL MALEATE 10 MG TABLET PO SCH (09:46)
[2020-06-22] MEDS: QUEtiapine FUMARATE 100 MG TABLET (FP) PO SCH (09:46)
[2020-06-22] MEDS: HYDROCHLOROTHIAZIDE 25 MG TABLET (FP) PO SCH (09:46)
[2020-06-22] MEDS: MELATONIN 5 MG TABLETS PO SCH (21:16)
[2020-06-22] MEDS: THIAMINE HCL 100 MG TABLET (FP) PO SCH (21:16)
[2020-06-22] MEDS: traZODone HCL 100 MG TABLET (FP) PO SCH (21:16)
[2020-06-22] MEDS: hydrOXYzine PAMOATE 25 MG CAPSULE (FP) PO PRN (21:16)
[2020-06-22] MEDS: QUEtiapine FUMARATE 400 MG TABLET PO SCH (21:16)
[2020-06-23] MEDS: NICOTINE 7 MG/24 HOURS TOPICAL PATCH TD SCH (09:57)
[2020-06-23] MEDS: HYDROCHLOROTHIAZIDE 25 MG TABLET (FP) PO SCH (09:57)
[2020-06-23] MEDS: FLUoxetine HCL 20 MG CAPSULE PO SCH (09:57)
[2020-06-23] MEDS: PRENATAL VITAMINS W/ FOLIC ACID TABLET (FP) PO SCH (09:58)
[2020-06-23] MEDS: ENALAPRIL MALEATE 10 MG TABLET PO SCH (09:58)
[2020-06-23] MEDS: QUEtiapine FUMARATE 100 MG TABLET (FP) PO SCH (09:58)
[2020-06-23] MEDS: QUEtiapine FUMARATE 400 MG TABLET PO SCH (21:41)
[2020-06-23] MEDS: THIAMINE HCL 100 MG TABLET (FP) PO SCH (21:41)
[2020-06-23] MEDS: traZODone HCL 100 MG TABLET (FP) PO SCH (21:41)
[2020-06-23] MEDS: MELATONIN 5 MG TABLETS PO SCH (21:41)
[2020-06-23] MEDS: hydrOXYzine PAMOATE 25 MG CAPSULE (FP) PO PRN (21:42)
[2020-06-23] MEDS: ACETAMINOPHEN 325 MG TABLET (FP) PO PRN (23:55)
[2020-06-24] MEDS: FLUoxetine HCL 20 MG CAPSULE PO SCH (11:50)
[2020-06-24] MEDS: QUEtiapine FUMARATE 100 MG TABLET (FP) PO SCH (11:50)
[2020-06-24] MEDS: HYDROCHLOROTHIAZIDE 25 MG TABLET (FP) PO SCH (11:50)
[2020-06-24] MEDS: ENALAPRIL MALEATE 10 MG TABLET PO SCH (11:50)
[2020-06-24] MEDS: NICOTINE 7 MG/24 HOURS TOPICAL PATCH TD SCH (11:50)
[2020-06-24] MEDS: PRENATAL VITAMINS W/ FOLIC ACID TABLET (FP) PO SCH (11:51)
[2020-06-24] MEDS: QUEtiapine FUMARATE 400 MG TABLET PO SCH (21:48)
[2020-06-24] MEDS: THIAMINE HCL 100 MG TABLET (FP) PO SCH (21:48)
[2020-06-24] MEDS: traZODone HCL 100 MG TABLET (FP) PO SCH (21:48)
[2020-06-24] MEDS: MELATONIN 5 MG TABLETS PO SCH (21:48)
[2020-06-24] MEDS: hydrOXYzine PAMOATE 25 MG CAPSULE (FP) PO PRN (21:49)
[2020-06-25] MEDS: QUEtiapine FUMARATE 100 MG TABLET (FP) PO SCH (09:52)
[2020-06-25] MEDS: NICOTINE 7 MG/24 HOURS TOPICAL PATCH TD SCH (09:52)
[2020-06-25] MEDS: PRENATAL VITAMINS W/ FOLIC ACID TABLET (FP) PO SCH (09:52)
[2020-06-25] MEDS: ENALAPRIL MALEATE 10 MG TABLET PO SCH (09:52)
[2020-06-25] MEDS: HYDROCHLOROTHIAZIDE 25 MG TABLET (FP) PO SCH (09:52)
[2020-06-25] MEDS: FLUoxetine HCL 20 MG CAPSULE PO SCH (10:18)
[2020-06-25] MEDS: MINERAL OIL/PETROLAT/WATER TOPICAL CREAM 113 GM JAR TP SCH (21:48)
[2020-06-25] MEDS: traZODone HCL 100 MG TABLET (FP) PO SCH (21:48)
[2020-06-25] MEDS: QUEtiapine FUMARATE 400 MG TABLET PO SCH (21:48)
[2020-06-25] MEDS: hydrOXYzine PAMOATE 25 MG CAPSULE (FP) PO PRN (21:48)
[2020-06-25] MEDS: THIAMINE HCL 100 MG TABLET (FP) PO SCH (21:48)
[2020-06-25] MEDS: MELATONIN 5 MG TABLETS PO SCH (21:48)
[2020-06-26] MEDS: ENALAPRIL MALEATE 10 MG TABLET PO SCH (10:11)
[2020-06-26] MEDS: HYDROCHLOROTHIAZIDE 25 MG TABLET (FP) PO SCH (10:11)
[2020-06-26] MEDS: QUEtiapine FUMARATE 100 MG TABLET (FP) PO SCH (10:11)
[2020-06-26] MEDS: PRENATAL VITAMINS W/ FOLIC ACID TABLET (FP) PO SCH (10:11)
[2020-06-26] MEDS: NICOTINE 7 MG/24 HOURS TOPICAL PATCH TD SCH (10:11)
[2020-06-26] MEDS: FLUoxetine HCL 20 MG CAPSULE PO SCH (10:11)
[2020-06-26] MEDS: MINERAL OIL/PETROLAT/WATER TOPICAL CREAM 113 GM JAR TP SCH (10:11)
[2020-06-26] MEDS: MELATONIN 5 MG TABLETS PO SCH (21:20)
[2020-06-26] MEDS: THIAMINE HCL 100 MG TABLET (FP) PO SCH (21:20)
[2020-06-26] MEDS: hydrOXYzine PAMOATE 25 MG CAPSULE (FP) PO PRN (21:20)
[2020-06-26] MEDS: QUEtiapine FUMARATE 400 MG TABLET PO SCH (21:20)
[2020-06-26] MEDS: traZODone HCL 100 MG TABLET (FP) PO SCH (21:20)
[2020-06-27] MEDS: FLUoxetine HCL 20 MG CAPSULE PO SCH (10:30)
[2020-06-27] MEDS: HYDROCHLOROTHIAZIDE 25 MG TABLET (FP) PO SCH (10:30)
[2020-06-27] MEDS: PRENATAL VITAMINS W/ FOLIC ACID TABLET (FP) PO SCH (10:30)
[2020-06-27] MEDS: ENALAPRIL MALEATE 10 MG TABLET PO SCH (10:30)
[2020-06-27] MEDS: QUEtiapine FUMARATE 100 MG TABLET (FP) PO SCH (10:30)
[2020-06-27] MEDS: MINERAL OIL/PETROLAT/WATER TOPICAL CREAM 113 GM JAR TP SCH (10:32)
[2020-06-27] MEDS: NICOTINE 7 MG/24 HOURS TOPICAL PATCH TD SCH (10:32)
[2020-06-27] MEDS: QUEtiapine FUMARATE 400 MG TABLET PO SCH (21:45)
[2020-06-27] MEDS: hydrOXYzine PAMOATE 25 MG CAPSULE (FP) PO PRN (21:45)
[2020-06-27] MEDS: THIAMINE HCL 100 MG TABLET (FP) PO SCH (21:45)
[2020-06-27] MEDS: traZODone HCL 100 MG TABLET (FP) PO SCH (21:45)
[2020-06-27] MEDS: MELATONIN 5 MG TABLETS PO SCH (21:45)
[2020-06-28] MEDS: HYDROCHLOROTHIAZIDE 25 MG TABLET (FP) PO SCH (09:57)
[2020-06-28] MEDS: QUEtiapine FUMARATE 100 MG TABLET (FP) PO SCH (09:57)
[2020-06-28] MEDS: FLUoxetine HCL 20 MG CAPSULE PO SCH (09:57)
[2020-06-28] MEDS: ENALAPRIL MALEATE 10 MG TABLET PO SCH (09:57)
[2020-06-28] MEDS: NICOTINE 7 MG/24 HOURS TOPICAL PATCH TD SCH (09:57)
[2020-06-28] MEDS: PRENATAL VITAMINS W/ FOLIC ACID TABLET (FP) PO SCH (09:57)
[2020-06-28] MEDS: MINERAL OIL/PETROLAT/WATER TOPICAL CREAM 113 GM JAR TP SCH (09:58)
[2020-06-28] MEDS: MELATONIN 5 MG TABLETS PO SCH (21:23)
[2020-06-28] MEDS: THIAMINE HCL 100 MG TABLET (FP) PO SCH (21:23)
[2020-06-28] MEDS: QUEtiapine FUMARATE 400 MG TABLET PO SCH (21:23)
[2020-06-28] MEDS: traZODone HCL 100 MG TABLET (FP) PO SCH (21:23)
[2020-06-28] MEDS: hydrOXYzine PAMOATE 25 MG CAPSULE (FP) PO PRN (21:23)
[2020-06-29] MEDS: FLUoxetine HCL 20 MG CAPSULE PO SCH (10:40)
[2020-06-29] MEDS: PRENATAL VITAMINS W/ FOLIC ACID TABLET (FP) PO SCH (10:40)
[2020-06-29] MEDS: HYDROCHLOROTHIAZIDE 25 MG TABLET (FP) PO SCH (10:41)
[2020-06-29] MEDS: QUEtiapine FUMARATE 100 MG TABLET (FP) PO SCH (10:41)
[2020-06-29] MEDS: ENALAPRIL MALEATE 10 MG TABLET PO SCH (10:42)
[2020-06-29] MEDS: NICOTINE 7 MG/24 HOURS TOPICAL PATCH TD SCH (10:42)
[2020-06-29] MEDS: MINERAL OIL/PETROLAT/WATER TOPICAL CREAM 113 GM JAR TP SCH (10:43)
[2020-06-29] MEDS: QUEtiapine FUMARATE 400 MG TABLET PO SCH (22:10)
[2020-06-29] MEDS: THIAMINE HCL 100 MG TABLET (FP) PO SCH (22:10)
[2020-06-29] MEDS: traZODone HCL 100 MG TABLET (FP) PO SCH (22:10)
[2020-06-29] MEDS: MELATONIN 5 MG TABLETS PO SCH (22:10)
[2020-06-29] MEDS: hydrOXYzine PAMOATE 25 MG CAPSULE (FP) PO PRN (22:11)
[2020-06-30] MEDS ORDERED: PT OWN MED DRAWER 7, Y5N ONE (09:35)
[2020-06-30] MEDS: FLUoxetine HCL 20 MG CAPSULE PO SCH (10:38)
[2020-06-30] MEDS: PRENATAL VITAMINS W/ FOLIC ACID TABLET (FP) PO SCH (10:38)
[2020-06-30] MEDS: ENALAPRIL MALEATE 10 MG TABLET PO SCH (10:38)
[2020-06-30] MEDS: QUEtiapine FUMARATE 100 MG TABLET (FP) PO SCH (10:39)
[2020-06-30] MEDS: NICOTINE 7 MG/24 HOURS TOPICAL PATCH TD SCH (10:39)
[2020-06-30] MEDS: HYDROCHLOROTHIAZIDE 25 MG TABLET (FP) PO SCH (10:39)
[2020-06-30] MEDS: MINERAL OIL/PETROLAT/WATER TOPICAL CREAM 113 GM JAR TP SCH (10:39)
[2020-06-30] MEDS: THIAMINE HCL 100 MG TABLET (FP) PO SCH (22:00)
[2020-06-30] MEDS: traZODone HCL 100 MG TABLET (FP) PO SCH (22:00)
[2020-06-30] MEDS: MELATONIN 5 MG TABLETS PO SCH (22:00)
[2020-06-30] MEDS: hydrOXYzine PAMOATE 25 MG CAPSULE (FP) PO PRN (22:00)
[2020-06-30] MEDS: QUEtiapine FUMARATE 400 MG TABLET PO SCH (22:01)
[2020-06-30] MEDS: ACETAMINOPHEN 325 MG TABLET (FP) PO PRN (23:14)
[2020-07-01] MEDS: HYDROCHLOROTHIAZIDE 25 MG TABLET (FP) PO SCH (10:26)
[2020-07-01] MEDS: ENALAPRIL MALEATE 10 MG TABLET PO SCH (10:26)
[2020-07-01] MEDS: QUEtiapine FUMARATE 100 MG TABLET (FP) PO SCH (10:26)
[2020-07-01] MEDS: hydrOXYzine PAMOATE 25 MG CAPSULE (FP) PO PRN ×2 (10:26→21:30)
[2020-07-01] MEDS: FLUoxetine HCL 20 MG CAPSULE PO SCH (10:26)
[2020-07-01] MEDS: NICOTINE 7 MG/24 HOURS TOPICAL PATCH TD SCH (10:27)
[2020-07-01] MEDS: PRENATAL VITAMINS W/ FOLIC ACID TABLET (FP) PO SCH (10:27)
[2020-07-01] MEDS: MINERAL OIL/PETROLAT/WATER TOPICAL CREAM 113 GM JAR TP SCH (10:27)
[2020-07-01] MEDS: MELATONIN 5 MG TABLETS PO SCH (21:30)
[2020-07-01] MEDS: THIAMINE HCL 100 MG TABLET (FP) PO SCH (21:30)
[2020-07-01] MEDS: traZODone HCL 100 MG TABLET (FP) PO SCH (21:30)
[2020-07-01] MEDS: QUEtiapine FUMARATE 400 MG TABLET PO SCH (21:30)
[2020-07-02] MEDS: QUEtiapine FUMARATE 100 MG TABLET (FP) PO SCH (10:21)
[2020-07-02] MEDS: PRENATAL VITAMINS W/ FOLIC ACID TABLET (FP) PO SCH (10:21)
[2020-07-02] MEDS: FLUoxetine HCL 20 MG CAPSULE PO SCH (10:21)
[2020-07-02] MEDS: HYDROCHLOROTHIAZIDE 25 MG TABLET (FP) PO SCH (10:22)
[2020-07-02] MEDS: MINERAL OIL/PETROLAT/WATER TOPICAL CREAM 113 GM JAR TP SCH (10:22)
[2020-07-02] MEDS: NICOTINE 7 MG/24 HOURS TOPICAL PATCH TD SCH (10:22)
[2020-07-02] MEDS: ENALAPRIL MALEATE 10 MG TABLET PO SCH (10:22)
[2020-07-02] MEDS: THIAMINE HCL 100 MG TABLET (FP) PO SCH (21:52)
[2020-07-02] MEDS: QUEtiapine FUMARATE 400 MG TABLET PO SCH (21:52)
[2020-07-02] MEDS: MELATONIN 5 MG TABLETS PO SCH (21:52)
[2020-07-02] MEDS: hydrOXYzine PAMOATE 25 MG CAPSULE (FP) PO PRN (21:52)
[2020-07-02] MEDS: traZODone HCL 100 MG TABLET (FP) PO SCH (21:52)
[2020-07-03] MEDS: PRENATAL VITAMINS W/ FOLIC ACID TABLET (FP) PO SCH (10:04)
[2020-07-03] MEDS: ENALAPRIL MALEATE 10 MG TABLET PO SCH (10:04)
[2020-07-03] MEDS: NICOTINE 7 MG/24 HOURS TOPICAL PATCH TD SCH (10:05)
[2020-07-03] MEDS: FLUoxetine HCL 20 MG CAPSULE PO SCH (10:05)
[2020-07-03] MEDS: MINERAL OIL/PETROLAT/WATER TOPICAL CREAM 113 GM JAR TP SCH (10:05)
[2020-07-03] MEDS: HYDROCHLOROTHIAZIDE 25 MG TABLET (FP) PO SCH (10:05)
[2020-07-03] MEDS: QUEtiapine FUMARATE 100 MG TABLET (FP) PO SCH (10:05)
[2020-07-03] MEDS: QUEtiapine FUMARATE 400 MG TABLET PO SCH (21:39)
[2020-07-03] MEDS: MELATONIN 5 MG TABLETS PO SCH (21:39)
[2020-07-03] MEDS: hydrOXYzine PAMOATE 25 MG CAPSULE (FP) PO PRN (21:39)
[2020-07-03] MEDS: THIAMINE HCL 100 MG TABLET (FP) PO SCH (21:39)
[2020-07-03] MEDS: traZODone HCL 100 MG TABLET (FP) PO SCH (21:39)
[2020-07-04] MEDS: hydrOXYzine PAMOATE 25 MG CAPSULE (FP) PO PRN ×2 (06:08→21:15)
[2020-07-04] MEDS: PRENATAL VITAMINS W/ FOLIC ACID TABLET (FP) PO SCH (10:27)
[2020-07-04] MEDS: QUEtiapine FUMARATE 100 MG TABLET (FP) PO SCH (10:27)
[2020-07-04] MEDS: FLUoxetine HCL 20 MG CAPSULE PO SCH (10:28)
[2020-07-04] MEDS: MINERAL OIL/PETROLAT/WATER TOPICAL CREAM 113 GM JAR TP SCH (10:29)
[2020-07-04] MEDS: HYDROCHLOROTHIAZIDE 25 MG TABLET (FP) PO SCH (10:29)
[2020-07-04] MEDS: NICOTINE 7 MG/24 HOURS TOPICAL PATCH TD SCH (10:29)
[2020-07-04] MEDS: ENALAPRIL MALEATE 10 MG TABLET PO SCH (10:29)
[2020-07-04] MEDS: traZODone HCL 100 MG TABLET (FP) PO SCH (21:15)
[2020-07-04] MEDS: THIAMINE HCL 100 MG TABLET (FP) PO SCH (21:15)
[2020-07-04] MEDS: MELATONIN 5 MG TABLETS PO SCH (21:15)
[2020-07-04] MEDS: QUEtiapine FUMARATE 400 MG TABLET PO SCH (21:15)
[2020-07-05] MEDS: ACETAMINOPHEN 325 MG TABLET (FP) PO PRN (00:24)
[2020-07-05] MEDS: FLUoxetine HCL 20 MG CAPSULE PO SCH (10:27)
[2020-07-05] MEDS: PRENATAL VITAMINS W/ FOLIC ACID TABLET (FP) PO SCH (10:27)
[2020-07-05] MEDS: QUEtiapine FUMARATE 100 MG TABLET (FP) PO SCH (10:27)
[2020-07-05] MEDS: ENALAPRIL MALEATE 10 MG TABLET PO SCH (10:27)
[2020-07-05] MEDS: HYDROCHLOROTHIAZIDE 25 MG TABLET (FP) PO SCH (10:27)
[2020-07-05] MEDS: NICOTINE 7 MG/24 HOURS TOPICAL PATCH TD SCH (10:28)
[2020-07-05] MEDS: MINERAL OIL/PETROLAT/WATER TOPICAL CREAM 113 GM JAR TP SCH (10:28)
[2020-07-05] MEDS: hydrOXYzine PAMOATE 25 MG CAPSULE (FP) PO PRN (21:47)
[2020-07-05] MEDS: QUEtiapine FUMARATE 400 MG TABLET PO SCH (21:47)
[2020-07-05] MEDS: traZODone HCL 100 MG TABLET (FP) PO SCH (21:47)
[2020-07-05] MEDS: THIAMINE HCL 100 MG TABLET (FP) PO SCH (21:47)
[2020-07-05] MEDS: MELATONIN 5 MG TABLETS PO SCH (21:47)
[2020-07-06] MEDS: PRENATAL VITAMINS W/ FOLIC ACID TABLET (FP) PO SCH (09:53)
[2020-07-06] MEDS: MINERAL OIL/PETROLAT/WATER TOPICAL CREAM 113 GM JAR TP SCH (09:54)
[2020-07-06] MEDS: FLUoxetine HCL 20 MG CAPSULE PO SCH (09:54)
[2020-07-06] MEDS: QUEtiapine FUMARATE 100 MG TABLET (FP) PO SCH (09:55)
[2020-07-06] MEDS: NICOTINE 7 MG/24 HOURS TOPICAL PATCH TD SCH (09:55)
[2020-07-06] MEDS: ENALAPRIL MALEATE 10 MG TABLET PO SCH (09:55)
[2020-07-06] MEDS: HYDROCHLOROTHIAZIDE 25 MG TABLET (FP) PO SCH (09:55)
[2020-07-06] MEDS: QUEtiapine FUMARATE 400 MG TABLET PO SCH (21:42)
[2020-07-06] MEDS: THIAMINE HCL 100 MG TABLET (FP) PO SCH (21:42)
[2020-07-06] MEDS: MELATONIN 5 MG TABLETS PO SCH (21:42)
[2020-07-06] MEDS: traZODone HCL 100 MG TABLET (FP) PO SCH (21:42)
[2020-07-06] MEDS: hydrOXYzine PAMOATE 25 MG CAPSULE (FP) PO PRN (21:42)
[2020-07-07] MEDS: PRENATAL VITAMINS W/ FOLIC ACID TABLET (FP) PO SCH (10:15)
[2020-07-07] MEDS: FLUoxetine HCL 20 MG CAPSULE PO SCH (10:15)
[2020-07-07] MEDS: HYDROCHLOROTHIAZIDE 25 MG TABLET (FP) PO SCH (10:16)
[2020-07-07] MEDS: hydrOXYzine PAMOATE 25 MG CAPSULE (FP) PO PRN ×2 (10:16→21:37)
[2020-07-07] MEDS: MINERAL OIL/PETROLAT/WATER TOPICAL CREAM 113 GM JAR TP SCH (10:16)
[2020-07-07] MEDS: QUEtiapine FUMARATE 100 MG TABLET (FP) PO SCH (10:16)
[2020-07-07] MEDS: ENALAPRIL MALEATE 10 MG TABLET PO SCH (10:16)
[2020-07-07] MEDS: NICOTINE 7 MG/24 HOURS TOPICAL PATCH TD SCH (10:16)
[2020-07-07] MEDS: QUEtiapine FUMARATE 400 MG TABLET PO SCH (21:37)
[2020-07-07] MEDS: traZODone HCL 100 MG TABLET (FP) PO SCH (21:37)
[2020-07-07] MEDS: ACETAMINOPHEN 325 MG TABLET (FP) PO PRN (21:37)
[2020-07-07] MEDS: MELATONIN 5 MG TABLETS PO SCH (21:39)
[2020-07-07] MEDS: THIAMINE HCL 100 MG TABLET (FP) PO SCH (22:15)
[2020-07-08] MEDS: ENALAPRIL MALEATE 10 MG TABLET PO SCH (10:10)
[2020-07-08] MEDS: HYDROCHLOROTHIAZIDE 25 MG TABLET (FP) PO SCH (10:13)
[2020-07-08] MEDS: MINERAL OIL/PETROLAT/WATER TOPICAL CREAM 113 GM JAR TP SCH (10:13)
[2020-07-08] MEDS: NICOTINE 7 MG/24 HOURS TOPICAL PATCH TD SCH (10:13)
[2020-07-08] MEDS: FLUoxetine HCL 20 MG CAPSULE PO SCH (10:13)
[2020-07-08] MEDS: PRENATAL VITAMINS W/ FOLIC ACID TABLET (FP) PO SCH (10:13)
[2020-07-08] MEDS: QUEtiapine FUMARATE 100 MG TABLET (FP) PO SCH (10:13)
[2020-07-08] MEDS: QUEtiapine FUMARATE 400 MG TABLET PO SCH (21:53)
[2020-07-08] MEDS: traZODone HCL 100 MG TABLET (FP) PO SCH (21:53)
[2020-07-08] MEDS: THIAMINE HCL 100 MG TABLET (FP) PO SCH (21:53)
[2020-07-08] MEDS: hydrOXYzine PAMOATE 25 MG CAPSULE (FP) PO PRN (21:54)
[2020-07-08] MEDS: MELATONIN 5 MG TABLETS PO SCH (21:54)
[2020-07-09] MEDS: QUEtiapine FUMARATE 100 MG TABLET (FP) PO SCH (10:35)
[2020-07-09] MEDS: HYDROCHLOROTHIAZIDE 25 MG TABLET (FP) PO SCH (10:35)
[2020-07-09] MEDS: ENALAPRIL MALEATE 10 MG TABLET PO SCH (10:35)
[2020-07-09] MEDS: NICOTINE 7 MG/24 HOURS TOPICAL PATCH TD SCH (10:35)
[2020-07-09] MEDS: PRENATAL VITAMINS W/ FOLIC ACID TABLET (FP) PO SCH (10:35)
[2020-07-09] MEDS: FLUoxetine HCL 20 MG CAPSULE PO SCH (10:36)
[2020-07-09] MEDS: MINERAL OIL/PETROLAT/WATER TOPICAL CREAM 113 GM JAR TP SCH (10:36)
[2020-07-09] MEDS: MELATONIN 5 MG TABLETS PO SCH (21:28)
[2020-07-09] MEDS: traZODone HCL 100 MG TABLET (FP) PO SCH (21:28)
[2020-07-09] MEDS: QUEtiapine FUMARATE 400 MG TABLET PO SCH (21:28)
[2020-07-09] MEDS: hydrOXYzine PAMOATE 25 MG CAPSULE (FP) PO PRN (21:28)
[2020-07-09] MEDS: THIAMINE HCL 100 MG TABLET (FP) PO SCH (21:28)
[2020-07-10 06:56] VITALS: BP 154/95; PULSE 80; TEMP 98.7
[2020-07-10] MEDS: PRENATAL VITAMINS W/ FOLIC ACID TABLET (FP) PO SCH (09:33)
[2020-07-10] MEDS: NICOTINE 7 MG/24 HOURS TOPICAL PATCH TD SCH (09:33)
[2020-07-10] MEDS: ENALAPRIL MALEATE 10 MG TABLET PO SCH (09:34)
[2020-07-10] MEDS: HYDROCHLOROTHIAZIDE 25 MG TABLET (FP) PO SCH (09:34)
[2020-07-10] MEDS: QUEtiapine FUMARATE 100 MG TABLET (FP) PO SCH (09:34)
[2020-07-10] MEDS: FLUoxetine HCL 20 MG CAPSULE PO SCH (09:34)
[2020-07-10] MEDS: MINERAL OIL/PETROLAT/WATER TOPICAL CREAM 113 GM JAR TP SCH (09:34)
== END 2020-07-10 10:45 | disposition home or self-care (01) | DRG 772 ==
LOC: YASAS 12:53 → Y5N 12:55
PROVIDERS: ADMIT Allergy & Immunology; ATTEND Allergy & Immunology
PROC: HZ42ZZZ Group Counseling for Substance Abuse Treatment, Cognitive-Behavioral (ICD-10-PCS; principal; 2020-06-12)
DX: F10.20 Alcohol dependence, uncomplicated (principal); F14.20 Cocaine dependence, uncomplicated; F17.210 Nicotine dependence, cigarettes, uncomplicated; F20.9 Schizophrenia, unspecified; I10 Essential (primary) hypertension; E78.5 Hyperlipidemia, unspecified; E66.9 Obesity, unspecified; Z68.30 Body mass index [BMI] 30.0-30.9, adult
CPT/HCPCS: 36415; 80053; 82962; C9803; U0003

== ENCOUNTER 2020-11-29 13:03 | Inpatient (IN) | payer OTHER ==
[2020-11-29 14:20] VITALS: BMI 29.5
[2020-11-29] MEDS ORDERED: MENTHOL/PHENOL 1 EACH UD MM PRN (18:08)
[2020-11-29] MEDS ORDERED: MAGNESIUM CITRATE 300 ML BOTTLE PO PRN (18:08)
[2020-11-29] MEDS ORDERED: IBUPROFEN 400 MG TABLET (FP) PO PRN (18:08)
[2020-11-29] MEDS ORDERED: NICOTINE POLACRILEX 2 MG GUM BUC PRN (18:08)
[2020-11-29] MEDS ORDERED: ACETAMINOPHEN 325 MG TABLET (FP) PO PRN (18:08)
[2020-11-29] MEDS ORDERED: LORazepam 1 MG TABLET PO PRN (18:08)
[2020-11-29] MEDS ORDERED: MAG HYDROX/AL HYDROX/SIMETH 30 ML UNIT-DOSE CUP PO PRN (18:08)
[2020-11-29] MEDS ORDERED: BISMUTH SUBSALICYLATE 524 MG/30 ML PO PRN (18:08)
[2020-11-29] MEDS ORDERED: MAGNESIUM HYDROX 2400MG/30ML ORAL SUSPENSION 30 ML CUP PO PRN (18:08)
[2020-11-29] MEDS ORDERED: ONDANSETRON *ODT* 4 MG TABLET SL PRN (18:08)
[2020-11-29] MEDS: THIAMINE HCL 100 MG TABLET (FP) PO SCH (21:18)
[2020-11-29] MEDS: ACETAMINOPHEN 325 MG TABLET (FP) PO PRN (21:18)
[2020-11-29] MEDS ORDERED: QUEtiapine FUMARATE 100 MG TABLET (FP) PO ONE (22:00)
[2020-11-29] MEDS ORDERED: MELATONIN 5 MG TABLETS PO SCH (22:00)
[2020-11-29] MEDS: LORazepam 2 MG TABLET PO SCH (23:35)
[2020-11-29] MEDS: hydrOXYzine PAMOATE 25 MG CAPSULE (FP) PO SCH (23:36)
[2020-11-30] MEDS: hydrOXYzine PAMOATE 25 MG CAPSULE (FP) PO SCH (06:13)
[2020-11-30] MEDS: LORazepam 2 MG TABLET PO SCH ×4 (06:13→22:45)
[2020-11-30] MEDS ORDERED: hydrOXYzine PAMOATE 25 MG CAPSULE (FP) PO PRN (07:32)
[2020-11-30] MEDS: ENALAPRIL MALEATE 10 MG TABLET PO SCH (11:02)
[2020-11-30] MEDS: PRENATAL VITAMINS W/ FOLIC ACID TABLET (FP) PO SCH (11:02)
[2020-11-30] MEDS: NICOTINE 7 MG/24 HOURS TOPICAL PATCH TD SCH (11:21)
[2020-11-30] MEDS ORDERED: diphenhydrAMINE HCL 50 MG CAPSULE PO PRN (11:27)
[2020-11-30 11:47] LABS: HEMATOCRIT 38.3 % (35.4-49); HEMOGLOBIN 13.3 GM/dL (11.7-16.9); MCH 33.2 pg (25.7-33.7); MCHC 34.7 g/dl (32.0-35.9); MEAN CELL VOLUME 95.4 fl (80-96); MEAN PLT VOLUME 9.6 fl (7.5-11.1); PLATELET COUNT 237 10^3/uL (134-434); RBC 4.01 M/mm3 (4.00-5.60); RDW 15.6 % (11.9-15.9); WHITE BLOOD COUNT 5.5 K/mm3 (4.0-10.0)
[2020-11-30 11:53] LABS: BLOOD UREA NITROGEN 13.8 mg/dL (7-18)
[2020-11-30 11:54] LABS: CALCIUM 8.1 mg/dL (8.5-10.1)
[2020-11-30 11:56] LABS: CREATININE 0.9 mg/dL (0.55-1.3)
[2020-11-30 11:58] LABS: BILIRUBIN,TOTAL 0.6 mg/dL (0.2-1); TOT PROT 6.1 g/dl (6.4-8.2)
[2020-11-30] MEDS: FLUoxetine HCL 20 MG CAPSULE PO SCH (15:09)
[2020-11-30] MEDS: QUEtiapine FUMARATE 100 MG TABLET (FP) PO SCH (15:09)
[2020-11-30] MEDS: HALOPERIDOL 5 MG TABLET PO SCH ×2 (15:09→22:44)
[2020-11-30] MEDS: METHOCARBAMOL 500 MG TABLET PO PRN (18:07)
[2020-11-30] MEDS ORDERED: diphenhydrAMINE HCL 25 MG CAPSULE (FP) PO ONE (21:35)
[2020-11-30] MEDS: THIAMINE HCL 100 MG TABLET (FP) PO SCH (22:44)
[2020-11-30] MEDS: QUEtiapine FUMARATE 400 MG TABLET PO SCH (22:44)
[2020-11-30] MEDS: diphenhydrAMINE HCL 50 MG CAPSULE PO SCH (22:44)
[2020-12-01] MEDS: LORazepam 1 MG TABLET PO SCH ×4 (06:05→22:15)
[2020-12-01] MEDS: HALOPERIDOL 5 MG TABLET PO SCH ×2 (10:49→22:15)
[2020-12-01] MEDS: FLUoxetine HCL 20 MG CAPSULE PO SCH (10:49)
[2020-12-01] MEDS: QUEtiapine FUMARATE 100 MG TABLET (FP) PO SCH (10:49)
[2020-12-01] MEDS: PRENATAL VITAMINS W/ FOLIC ACID TABLET (FP) PO SCH (10:49)
[2020-12-01] MEDS: NICOTINE 7 MG/24 HOURS TOPICAL PATCH TD SCH (10:49)
[2020-12-01] MEDS: ENALAPRIL MALEATE 10 MG TABLET PO SCH (10:49)
[2020-12-01] MEDS: ACETAMINOPHEN 325 MG TABLET (FP) PO PRN (17:39)
[2020-12-01] MEDS ORDERED: diphenhydrAMINE HCL 25 MG CAPSULE (FP) PO ONE (21:27)
[2020-12-01] MEDS: diphenhydrAMINE HCL 50 MG CAPSULE PO SCH (22:15)
[2020-12-01] MEDS: THIAMINE HCL 100 MG TABLET (FP) PO SCH (22:15)
[2020-12-01] MEDS: QUEtiapine FUMARATE 400 MG TABLET PO SCH (22:15)
[2020-12-02] MEDS ORDERED: LORazepam 0.5 MG TABLET PO PRN
[2020-12-02] MEDS: METHOCARBAMOL 500 MG TABLET PO PRN ×2 (01:25→22:04)
[2020-12-02] MEDS: LORazepam 0.5 MG TABLET PO SCH ×4 (05:59→22:05)
[2020-12-02] MEDS: ENALAPRIL MALEATE 10 MG TABLET PO SCH (10:55)
[2020-12-02] MEDS: PRENATAL VITAMINS W/ FOLIC ACID TABLET (FP) PO SCH (10:55)
[2020-12-02] MEDS: QUEtiapine FUMARATE 100 MG TABLET (FP) PO SCH (10:55)
[2020-12-02] MEDS: FLUoxetine HCL 20 MG CAPSULE PO SCH (10:55)
[2020-12-02] MEDS: HALOPERIDOL 5 MG TABLET PO SCH ×2 (10:57→22:04)
[2020-12-02] MEDS: NICOTINE 7 MG/24 HOURS TOPICAL PATCH TD SCH (10:57)
[2020-12-02] MEDS ORDERED: diphenhydrAMINE HCL 25 MG CAPSULE (FP) PO ONE (21:34)
[2020-12-02] MEDS: THIAMINE HCL 100 MG TABLET (FP) PO SCH (22:04)
[2020-12-02] MEDS: QUEtiapine FUMARATE 400 MG TABLET PO SCH (22:04)
[2020-12-02] MEDS: diphenhydrAMINE HCL 50 MG CAPSULE PO SCH (22:05)
[2020-12-03] MEDS ORDERED: LORazepam 0.5 MG TABLET PO ONE (05:00)
[2020-12-03] MEDS: ENALAPRIL MALEATE 10 MG TABLET PO SCH (10:22)
[2020-12-03] MEDS: HALOPERIDOL 5 MG TABLET PO SCH (10:22)
[2020-12-03] MEDS: FLUoxetine HCL 20 MG CAPSULE PO SCH (10:22)
[2020-12-03] MEDS: QUEtiapine FUMARATE 100 MG TABLET (FP) PO SCH (10:22)
[2020-12-03] MEDS: NICOTINE 7 MG/24 HOURS TOPICAL PATCH TD SCH (10:23)
[2020-12-03] MEDS: PRENATAL VITAMINS W/ FOLIC ACID TABLET (FP) PO SCH (10:23)
[2020-12-03 12:10] VITALS: BP 126/70; PULSE 78; TEMP 97.1
== END 2020-12-03 11:55 | disposition home or self-care (01) | DRG 774 ==
LOC: YASAS 13:03 → Y3N 18:32
PROVIDERS: ADMIT Allergy & Immunology; ATTEND Allergy & Immunology
PROC: HZ2ZZZZ Detoxification Services for Substance Abuse Treatment (ICD-10-PCS; principal; 2020-11-29)
DX: F10.230 Alcohol dependence with withdrawal, uncomplicated (principal); F14.20 Cocaine dependence, uncomplicated; F17.210 Nicotine dependence, cigarettes, uncomplicated; F19.24 Other psychoactive substance dependence with psychoactive substance-induced mood disorder; F19.282 Other psychoactive substance dependence with psychoactive substance-induced sleep disorder; F20.0 Paranoid schizophrenia; I10 Essential (primary) hypertension; E78.5 Hyperlipidemia, unspecified; G47.00 Insomnia, unspecified; E66.9 Obesity, unspecified; Z68.29 Body mass index [BMI] 29.0-29.9, adult; Z91.14 Patient's other noncompliance with medication regimen; Z97.0 Presence of artificial eye; Z86.69 Personal history of other diseases of the nervous system and sense organs; Z56.0 Unemployment, unspecified; Z59.0 Homelessness
CPT/HCPCS: 36415; 80053; 85027; 86780; C9803; Q0162; U0003; U0005

== ENCOUNTER 2021-02-06 12:11 | Inpatient (IN) | payer OTHER ==
[2021-02-06] MEDS ORDERED: ENALAPRIL MALEATE 10 MG TABLET PO SCH (23:45)
[2021-02-06] MEDS ORDERED: BISMUTH SUBSALICYLATE 524 MG/30 ML PO PRN (23:46)
[2021-02-06] MEDS ORDERED: MAGNESIUM HYDROX 2400MG/30ML ORAL SUSPENSION 30 ML CUP PO PRN (23:46)
[2021-02-06] MEDS ORDERED: IBUPROFEN 400 MG TABLET (FP) PO PRN (23:46)
[2021-02-06] MEDS ORDERED: MAGNESIUM CITRATE 300 ML BOTTLE PO PRN (23:46)
[2021-02-06] MEDS ORDERED: ONDANSETRON *ODT* 4 MG TABLET SL PRN (23:46)
[2021-02-06] MEDS ORDERED: METHOCARBAMOL 500 MG TABLET PO PRN (23:46)
[2021-02-06] MEDS ORDERED: ACETAMINOPHEN 325 MG TABLET (FP) PO PRN ×2 (23:46)
[2021-02-06] MEDS ORDERED: hydrOXYzine PAMOATE 25 MG CAPSULE (FP) PO PRN (23:46)
[2021-02-06] MEDS ORDERED: MAG HYDROX/AL HYDROX/SIMETH 30 ML UNIT-DOSE CUP PO PRN (23:46)
[2021-02-06] MEDS ORDERED: MENTHOL/PHENOL 1 EACH UD MM PRN (23:46)
[2021-02-06] MEDS ORDERED: diazePAM 5 MG TABLET PO PRN (23:49)
[2021-02-06 23:53] VITALS: BMI 29.3
[2021-02-07] MEDS: diazePAM 5 MG TABLET PO SCH ×5 (00:45→22:32)
[2021-02-07] MEDS: PRENATAL VITAMINS W/ FOLIC ACID TABLET (FP) PO SCH (10:06)
[2021-02-07] MEDS: ENALAPRIL MALEATE 10 MG TABLET PO SCH (10:06)
[2021-02-07 10:58] LABS: HEMOGLOBIN 13.3 GM/dL (11.7-16.9); MCH 33.2 pg (25.7-33.7); MCHC 34.2 g/dl (32.0-35.9); MEAN CELL VOLUME 96.9 fl (80-96); MEAN PLT VOLUME 9.6 fl (7.5-11.1); PLATELET COUNT 234 10^3/uL (134-434); RBC 4.02 M/mm3 (4.00-5.60); RDW 15.7 % (11.9-15.9); WHITE BLOOD COUNT 6.5 K/mm3 (4.0-10.0)
[2021-02-07 11:22] LABS: ALBUMIN 3.2 g/dl (3.4-5.0); BLOOD UREA NITROGEN 16.4 mg/dL (7-18)
[2021-02-07 11:26] LABS: BILIRUBIN,TOTAL 0.5 mg/dL (0.2-1); TOT PROT 6.9 g/dl (6.4-8.2)
[2021-02-07] MEDS ORDERED: cloNIDine HCL 0.1 MG TABLET PO ONE (21:50)
[2021-02-07] MEDS ORDERED: MELATONIN 5 MG TABLETS PO SCH (22:00)
[2021-02-07] MEDS ORDERED: QUEtiapine FUMARATE 400 MG TABLET PO SCH (22:00)
[2021-02-07] MEDS: QUEtiapine FUMARATE 200 MG TABLET PO SCH (22:31)
[2021-02-07] MEDS: HALOPERIDOL 5 MG TABLET PO SCH (22:31)
[2021-02-07] MEDS: THIAMINE HCL 100 MG TABLET (FP) PO SCH (22:31)
[2021-02-07] MEDS ORDERED: diphenhydrAMINE HCL 25 MG CAPSULE (FP) PO ONE (22:33)
[2021-02-07] MEDS: diphenhydrAMINE HCL 50 MG CAPSULE PO PRN (22:33)
[2021-02-08] MEDS: diazePAM 5 MG TABLET PO SCH ×3 (05:06→22:14)
[2021-02-08] MEDS: ENALAPRIL MALEATE 10 MG TABLET PO SCH (10:13)
[2021-02-08] MEDS: FLUoxetine HCL 20 MG CAPSULE PO SCH (10:13)
[2021-02-08] MEDS: HALOPERIDOL 5 MG TABLET PO SCH ×2 (10:13→22:13)
[2021-02-08] MEDS: PRENATAL VITAMINS W/ FOLIC ACID TABLET (FP) PO SCH (10:46)
[2021-02-08] MEDS: QUEtiapine FUMARATE 100 MG TABLET (FP) PO SCH (10:47)
[2021-02-08] MEDS: QUEtiapine FUMARATE 200 MG TABLET PO SCH (22:13)
[2021-02-08] MEDS: THIAMINE HCL 100 MG TABLET (FP) PO SCH (22:13)
[2021-02-08] MEDS: diphenhydrAMINE HCL 50 MG CAPSULE PO PRN (22:14)
[2021-02-09] MEDS: diazePAM 5 MG TABLET PO SCH ×2 (06:23→17:42)
[2021-02-09] MEDS: PRENATAL VITAMINS W/ FOLIC ACID TABLET (FP) PO SCH (10:38)
[2021-02-09] MEDS: QUEtiapine FUMARATE 100 MG TABLET (FP) PO SCH (10:38)
[2021-02-09] MEDS: ENALAPRIL MALEATE 10 MG TABLET PO SCH (10:38)
[2021-02-09] MEDS: FLUoxetine HCL 20 MG CAPSULE PO SCH (10:38)
[2021-02-09] MEDS: HALOPERIDOL 5 MG TABLET PO SCH ×2 (10:38→22:26)
[2021-02-09] MEDS: THIAMINE HCL 100 MG TABLET (FP) PO SCH (22:26)
[2021-02-09] MEDS: diphenhydrAMINE HCL 50 MG CAPSULE PO PRN (22:26)
[2021-02-09] MEDS: QUEtiapine FUMARATE 200 MG TABLET PO SCH (22:26)
[2021-02-09] MEDS ORDERED: diphenhydrAMINE HCL 25 MG CAPSULE (FP) PO ONE (22:26)
[2021-02-09 22:27] VITALS: TEMP 97.3
[2021-02-10] MEDS ORDERED: diazePAM 5 MG TABLET PO ONE (06:00)
[2021-02-10 06:17] VITALS: BP 106/66; PULSE 77
[2021-02-10] MEDS: PRENATAL VITAMINS W/ FOLIC ACID TABLET (FP) PO SCH (10:35)
[2021-02-10] MEDS: QUEtiapine FUMARATE 100 MG TABLET (FP) PO SCH (10:36)
[2021-02-10] MEDS: FLUoxetine HCL 20 MG CAPSULE PO SCH (10:36)
[2021-02-10] MEDS: ENALAPRIL MALEATE 10 MG TABLET PO SCH (10:36)
[2021-02-10] MEDS: HALOPERIDOL 5 MG TABLET PO SCH (10:36)
== END 2021-02-10 14:01 | disposition other institution (70) | DRG 774 ==
LOC: YASAS 12:11 → Y3E 21:31 → UNDOADMIN 21:31 → Y3N 23:38
PROVIDERS: ADMIT Allergy & Immunology; ATTEND Allergy & Immunology
PROC: HZ2ZZZZ Detoxification Services for Substance Abuse Treatment (ICD-10-PCS; principal; 2021-02-06)
DX: F10.230 Alcohol dependence with withdrawal, uncomplicated (principal); F14.20 Cocaine dependence, uncomplicated; F17.210 Nicotine dependence, cigarettes, uncomplicated; F19.24 Other psychoactive substance dependence with psychoactive substance-induced mood disorder; F20.0 Paranoid schizophrenia; I10 Essential (primary) hypertension; E78.5 Hyperlipidemia, unspecified; Z87.828 Personal history of other (healed) physical injury and trauma; Z86.69 Personal history of other diseases of the nervous system and sense organs; Z56.0 Unemployment, unspecified; Z59.00 Homelessness unspecified
CPT/HCPCS: 36415; 80053; 85027; 86780; C9803; J0735; U0003; U0005

== ENCOUNTER 2021-02-10 14:01 | Inpatient (IN) | payer OTHER ==
[2021-02-10] MEDS ORDERED: diphenhydrAMINE HCL 50 MG CAPSULE PO PRN (15:22)
[2021-02-10] MEDS ORDERED: guaiFENesin 200 MG/10 ML 10 ML UNIT-DOSE CUPS PO PRN (15:59)
[2021-02-10] MEDS ORDERED: LOPERAMIDE HCL 2 MG CAPSULE PO PRN (15:59)
[2021-02-10] MEDS ORDERED: MAGNESIUM CITRATE 300 ML BOTTLE PO PRN (15:59)
[2021-02-10] MEDS ORDERED: NICOTINE 10 MG CARTRIDGE (INHALER) IH PRN (15:59)
[2021-02-10] MEDS ORDERED: MAGNESIUM HYDROX 2400MG/30ML ORAL SUSPENSION 30 ML CUP PO PRN (15:59)
[2021-02-10] MEDS ORDERED: MAG HYDROX/AL HYDROX/SIMETH 30 ML UNIT-DOSE CUP PO PRN (15:59)
[2021-02-10] MEDS ORDERED: IBUPROFEN 400 MG TABLET (FP) PO PRN (15:59)
[2021-02-10] MEDS ORDERED: hydrOXYzine PAMOATE 25 MG CAPSULE (FP) PO PRN (16:00)
[2021-02-10] MEDS ORDERED: TUBERCULIN PPD 5 TU/0.1ML VIAL ID ONE ×2 (18:34→22:05)
[2021-02-10] MEDS: diphenhydrAMINE HCL 25 MG CAPSULE (FP) PO PRN (21:15)
[2021-02-10] MEDS: QUEtiapine FUMARATE 400 MG TABLET PO SCH (21:15)
[2021-02-10] MEDS: HALOPERIDOL 5 MG TABLET PO PRN (21:16)
[2021-02-10] MEDS: MELATONIN 5 MG TABLETS PO SCH (21:16)
[2021-02-10] MEDS: THIAMINE HCL 100 MG TABLET (FP) PO SCH (21:16)
[2021-02-11] MEDS: QUEtiapine FUMARATE 100 MG TABLET (FP) PO SCH (10:18)
[2021-02-11] MEDS: PRENATAL VITAMINS W/ FOLIC ACID TABLET (FP) PO SCH (10:19)
[2021-02-11] MEDS: ENALAPRIL MALEATE 10 MG TABLET PO SCH (10:19)
[2021-02-11] MEDS: FLUoxetine HCL 20 MG CAPSULE PO SCH (10:19)
[2021-02-11] MEDS: NICOTINE 7 MG/24 HOURS TOPICAL PATCH TD SCH (10:20)
[2021-02-11] MEDS: QUEtiapine FUMARATE 400 MG TABLET PO SCH (22:11)
[2021-02-11] MEDS: MELATONIN 5 MG TABLETS PO SCH (22:11)
[2021-02-11] MEDS: THIAMINE HCL 100 MG TABLET (FP) PO SCH (22:12)
[2021-02-11] MEDS: diphenhydrAMINE HCL 25 MG CAPSULE (FP) PO PRN (22:13)
[2021-02-12] MEDS: ACETAMINOPHEN 325 MG TABLET (FP) PO PRN (01:34)
[2021-02-12] MEDS: PRENATAL VITAMINS W/ FOLIC ACID TABLET (FP) PO SCH (10:30)
[2021-02-12] MEDS: QUEtiapine FUMARATE 100 MG TABLET (FP) PO SCH (10:30)
[2021-02-12] MEDS: ENALAPRIL MALEATE 10 MG TABLET PO SCH (10:31)
[2021-02-12] MEDS: FLUoxetine HCL 20 MG CAPSULE PO SCH (10:31)
[2021-02-12] MEDS: NICOTINE 7 MG/24 HOURS TOPICAL PATCH TD SCH (10:31)
[2021-02-12] MEDS: MELATONIN 5 MG TABLETS PO SCH (21:42)
[2021-02-12] MEDS: THIAMINE HCL 100 MG TABLET (FP) PO SCH (21:43)
[2021-02-12] MEDS: QUEtiapine FUMARATE 400 MG TABLET PO SCH (21:43)
[2021-02-12] MEDS: diphenhydrAMINE HCL 25 MG CAPSULE (FP) PO PRN (21:44)
[2021-02-12 23:06] LABS: HIV INTERPRETATION NEGATIVE (NEGATIVE)
[2021-02-13] MEDS: HALOPERIDOL 5 MG TABLET PO PRN ×2 (03:05→21:20)
[2021-02-13] MEDS: ENALAPRIL MALEATE 10 MG TABLET PO SCH (09:43)
[2021-02-13] MEDS: NICOTINE 7 MG/24 HOURS TOPICAL PATCH TD SCH (09:43)
[2021-02-13] MEDS: PRENATAL VITAMINS W/ FOLIC ACID TABLET (FP) PO SCH (09:43)
[2021-02-13] MEDS: FLUoxetine HCL 20 MG CAPSULE PO SCH (09:43)
[2021-02-13] MEDS: QUEtiapine FUMARATE 100 MG TABLET (FP) PO SCH (09:43)
[2021-02-13] MEDS: NICOTINE POLACRILEX 2 MG GUM BUC PRN (09:44)
[2021-02-13] MEDS: MELATONIN 5 MG TABLETS PO SCH (21:20)
[2021-02-13] MEDS: diphenhydrAMINE HCL 25 MG CAPSULE (FP) PO PRN (21:20)
[2021-02-13] MEDS: THIAMINE HCL 100 MG TABLET (FP) PO SCH (21:20)
[2021-02-13] MEDS: QUEtiapine FUMARATE 400 MG TABLET PO SCH (21:20)
[2021-02-14] MEDS: ENALAPRIL MALEATE 10 MG TABLET PO SCH (09:44)
[2021-02-14] MEDS: FLUoxetine HCL 20 MG CAPSULE PO SCH (09:44)
[2021-02-14] MEDS: PRENATAL VITAMINS W/ FOLIC ACID TABLET (FP) PO SCH (09:44)
[2021-02-14] MEDS: QUEtiapine FUMARATE 100 MG TABLET (FP) PO SCH (09:44)
[2021-02-14] MEDS: NICOTINE 7 MG/24 HOURS TOPICAL PATCH TD SCH (09:44)
[2021-02-14] MEDS: HALOPERIDOL 5 MG TABLET PO PRN (21:44)
[2021-02-14] MEDS: MELATONIN 5 MG TABLETS PO SCH (21:44)
[2021-02-14] MEDS: diphenhydrAMINE HCL 25 MG CAPSULE (FP) PO PRN (21:44)
[2021-02-14] MEDS: QUEtiapine FUMARATE 400 MG TABLET PO SCH (21:44)
[2021-02-14] MEDS: THIAMINE HCL 100 MG TABLET (FP) PO SCH (21:44)
[2021-02-15] MEDS: QUEtiapine FUMARATE 100 MG TABLET (FP) PO SCH (09:46)
[2021-02-15] MEDS: PRENATAL VITAMINS W/ FOLIC ACID TABLET (FP) PO SCH (09:46)
[2021-02-15] MEDS: ENALAPRIL MALEATE 10 MG TABLET PO SCH (09:46)
[2021-02-15] MEDS: NICOTINE 7 MG/24 HOURS TOPICAL PATCH TD SCH (09:46)
[2021-02-15] MEDS: FLUoxetine HCL 20 MG CAPSULE PO SCH (09:46)
[2021-02-15] MEDS: HALOPERIDOL 5 MG TABLET PO PRN (21:15)
[2021-02-15] MEDS: MELATONIN 5 MG TABLETS PO SCH (21:15)
[2021-02-15] MEDS: THIAMINE HCL 100 MG TABLET (FP) PO SCH (21:15)
[2021-02-15] MEDS: diphenhydrAMINE HCL 25 MG CAPSULE (FP) PO PRN (21:15)
[2021-02-15] MEDS: QUEtiapine FUMARATE 400 MG TABLET PO SCH (21:15)
[2021-02-16] MEDS: FLUoxetine HCL 20 MG CAPSULE PO SCH (09:55)
[2021-02-16] MEDS: QUEtiapine FUMARATE 100 MG TABLET (FP) PO SCH (09:55)
[2021-02-16] MEDS: PRENATAL VITAMINS W/ FOLIC ACID TABLET (FP) PO SCH (09:55)
[2021-02-16] MEDS: NICOTINE 7 MG/24 HOURS TOPICAL PATCH TD SCH (09:56)
[2021-02-16] MEDS: ENALAPRIL MALEATE 10 MG TABLET PO SCH (09:56)
[2021-02-16] MEDS: MELATONIN 5 MG TABLETS PO SCH (21:19)
[2021-02-16] MEDS: QUEtiapine FUMARATE 400 MG TABLET PO SCH (21:19)
[2021-02-16] MEDS: HALOPERIDOL 5 MG TABLET PO PRN (21:19)
[2021-02-16] MEDS: THIAMINE HCL 100 MG TABLET (FP) PO SCH (21:19)
[2021-02-16] MEDS: diphenhydrAMINE HCL 25 MG CAPSULE (FP) PO PRN (21:19)
[2021-02-16] MEDS: ACETAMINOPHEN 325 MG TABLET (FP) PO PRN (23:35)
[2021-02-17] MEDS: ENALAPRIL MALEATE 10 MG TABLET PO SCH (09:41)
[2021-02-17] MEDS: FLUoxetine HCL 20 MG CAPSULE PO SCH (09:41)
[2021-02-17] MEDS: QUEtiapine FUMARATE 100 MG TABLET (FP) PO SCH (09:41)
[2021-02-17] MEDS: PRENATAL VITAMINS W/ FOLIC ACID TABLET (FP) PO SCH (09:41)
[2021-02-17] MEDS: ACETAMINOPHEN 325 MG TABLET (FP) PO PRN ×2 (09:43→16:54)
[2021-02-17] MEDS: NICOTINE 7 MG/24 HOURS TOPICAL PATCH TD SCH (09:46)
[2021-02-17] MEDS: diphenhydrAMINE HCL 25 MG CAPSULE (FP) PO PRN (21:54)
[2021-02-17] MEDS: QUEtiapine FUMARATE 400 MG TABLET PO SCH (21:55)
[2021-02-17] MEDS: MELATONIN 5 MG TABLETS PO SCH (21:55)
[2021-02-17] MEDS: THIAMINE HCL 100 MG TABLET (FP) PO SCH (21:55)
[2021-02-17] MEDS: HALOPERIDOL 5 MG TABLET PO PRN (21:55)
[2021-02-18] MEDS: ACETAMINOPHEN 325 MG TABLET (FP) PO PRN (00:30)
[2021-02-18] MEDS ORDERED: PT OWN MED DRAWER 7, Y5N ONE (08:20)
[2021-02-18] MEDS: NICOTINE 7 MG/24 HOURS TOPICAL PATCH TD SCH (09:28)
[2021-02-18] MEDS: QUEtiapine FUMARATE 100 MG TABLET (FP) PO SCH (09:29)
[2021-02-18] MEDS: ENALAPRIL MALEATE 10 MG TABLET PO SCH (09:29)
[2021-02-18] MEDS: PRENATAL VITAMINS W/ FOLIC ACID TABLET (FP) PO SCH (09:29)
[2021-02-18] MEDS: FLUoxetine HCL 20 MG CAPSULE PO SCH (09:29)
[2021-02-18] MEDS: NICOTINE POLACRILEX 2 MG GUM BUC PRN (16:53)
[2021-02-18] MEDS: HALOPERIDOL 5 MG TABLET PO PRN (21:23)
[2021-02-18] MEDS: QUEtiapine FUMARATE 400 MG TABLET PO SCH (21:23)
[2021-02-18] MEDS: THIAMINE HCL 100 MG TABLET (FP) PO SCH (21:24)
[2021-02-18] MEDS: diphenhydrAMINE HCL 25 MG CAPSULE (FP) PO PRN (21:25)
[2021-02-18] MEDS: MELATONIN 5 MG TABLETS PO SCH (22:19)
[2021-02-19] MEDS: PRENATAL VITAMINS W/ FOLIC ACID TABLET (FP) PO SCH (09:49)
[2021-02-19] MEDS: NICOTINE 7 MG/24 HOURS TOPICAL PATCH TD SCH (09:49)
[2021-02-19] MEDS: ENALAPRIL MALEATE 10 MG TABLET PO SCH (09:49)
[2021-02-19] MEDS: FLUoxetine HCL 20 MG CAPSULE PO SCH (09:49)
[2021-02-19] MEDS: QUEtiapine FUMARATE 100 MG TABLET (FP) PO SCH (09:49)
[2021-02-19] MEDS: ACETAMINOPHEN 325 MG TABLET (FP) PO PRN (15:59)
[2021-02-19] MEDS: P-EPHED 60MG/TRIPROLIDI 2.5MG TABLET PO PRN ×2 (16:00→23:27)
[2021-02-19] MEDS: diphenhydrAMINE HCL 25 MG CAPSULE (FP) PO PRN (22:00)
[2021-02-19] MEDS: HALOPERIDOL 5 MG TABLET PO PRN (22:00)
[2021-02-19] MEDS: QUEtiapine FUMARATE 400 MG TABLET PO SCH (22:00)
[2021-02-19] MEDS: MELATONIN 5 MG TABLETS PO SCH (22:00)
[2021-02-19] MEDS: THIAMINE HCL 100 MG TABLET (FP) PO SCH (22:00)
[2021-02-19] MEDS: NICOTINE POLACRILEX 2 MG GUM BUC PRN (22:15)
[2021-02-19] MEDS: MENTHOL/PHENOL 1 EACH UD MM PRN (23:27)
[2021-02-20] MEDS: PRENATAL VITAMINS W/ FOLIC ACID TABLET (FP) PO SCH (09:36)
[2021-02-20] MEDS: NICOTINE 7 MG/24 HOURS TOPICAL PATCH TD SCH (09:36)
[2021-02-20] MEDS: ENALAPRIL MALEATE 10 MG TABLET PO SCH (09:37)
[2021-02-20] MEDS: FLUoxetine HCL 20 MG CAPSULE PO SCH (09:37)
[2021-02-20] MEDS: QUEtiapine FUMARATE 100 MG TABLET (FP) PO SCH (09:37)
[2021-02-20] MEDS: HALOPERIDOL 5 MG TABLET PO PRN (21:16)
[2021-02-20] MEDS: THIAMINE HCL 100 MG TABLET (FP) PO SCH (21:16)
[2021-02-20] MEDS: QUEtiapine FUMARATE 400 MG TABLET PO SCH (21:17)
[2021-02-20] MEDS: diphenhydrAMINE HCL 25 MG CAPSULE (FP) PO PRN (21:18)
[2021-02-20] MEDS: MELATONIN 5 MG TABLETS PO SCH (22:24)
[2021-02-21] MEDS: HALOPERIDOL 5 MG TABLET PO PRN ×2 (09:45→21:17)
[2021-02-21] MEDS: FLUoxetine HCL 20 MG CAPSULE PO SCH (09:45)
[2021-02-21] MEDS: QUEtiapine FUMARATE 100 MG TABLET (FP) PO SCH (09:45)
[2021-02-21] MEDS: ENALAPRIL MALEATE 10 MG TABLET PO SCH (09:45)
[2021-02-21] MEDS: NICOTINE 7 MG/24 HOURS TOPICAL PATCH TD SCH (09:45)
[2021-02-21] MEDS: PRENATAL VITAMINS W/ FOLIC ACID TABLET (FP) PO SCH (09:46)
[2021-02-21] MEDS: ACETAMINOPHEN 325 MG TABLET (FP) PO PRN (17:57)
[2021-02-21] MEDS: THIAMINE HCL 100 MG TABLET (FP) PO SCH (21:16)
[2021-02-21] MEDS: diphenhydrAMINE HCL 25 MG CAPSULE (FP) PO PRN (21:16)
[2021-02-21] MEDS: QUEtiapine FUMARATE 400 MG TABLET PO SCH (21:17)
[2021-02-21] MEDS: MELATONIN 5 MG TABLETS PO SCH (22:16)
[2021-02-22] MEDS: MENTHOL/PHENOL 1 EACH UD MM PRN (00:23)
[2021-02-22 06:55] VITALS: TEMP 96.9
[2021-02-22] MEDS: QUEtiapine FUMARATE 100 MG TABLET (FP) PO SCH (09:46)
[2021-02-22] MEDS: ENALAPRIL MALEATE 10 MG TABLET PO SCH (09:46)
[2021-02-22] MEDS: FLUoxetine HCL 20 MG CAPSULE PO SCH (09:46)
[2021-02-22] MEDS: PRENATAL VITAMINS W/ FOLIC ACID TABLET (FP) PO SCH (09:46)
[2021-02-22] MEDS: NICOTINE 7 MG/24 HOURS TOPICAL PATCH TD SCH (09:46)
[2021-02-22] MEDS: THIAMINE HCL 100 MG TABLET (FP) PO SCH (21:46)
[2021-02-22] MEDS: QUEtiapine FUMARATE 400 MG TABLET PO SCH (21:46)
[2021-02-22] MEDS: HALOPERIDOL 5 MG TABLET PO PRN (21:46)
[2021-02-22] MEDS: diphenhydrAMINE HCL 25 MG CAPSULE (FP) PO PRN (21:46)
[2021-02-22] MEDS: MELATONIN 5 MG TABLETS PO SCH (22:00)
[2021-02-22] MEDS: NICOTINE POLACRILEX 2 MG GUM BUC PRN (22:28)
[2021-02-23] MEDS: FLUoxetine HCL 20 MG CAPSULE PO SCH (09:46)
[2021-02-23] MEDS: QUEtiapine FUMARATE 100 MG TABLET (FP) PO SCH (09:46)
[2021-02-23] MEDS: ENALAPRIL MALEATE 10 MG TABLET PO SCH (09:46)
[2021-02-23] MEDS: NICOTINE 7 MG/24 HOURS TOPICAL PATCH TD SCH (09:46)
[2021-02-23] MEDS: PRENATAL VITAMINS W/ FOLIC ACID TABLET (FP) PO SCH (09:46)
[2021-02-23] MEDS: QUEtiapine FUMARATE 400 MG TABLET PO SCH (21:17)
[2021-02-23] MEDS: THIAMINE HCL 100 MG TABLET (FP) PO SCH (21:18)
[2021-02-23] MEDS: ACETAMINOPHEN 325 MG TABLET (FP) PO PRN (21:18)
[2021-02-23] MEDS: HALOPERIDOL 5 MG TABLET PO PRN (21:18)
[2021-02-23] MEDS: diphenhydrAMINE HCL 25 MG CAPSULE (FP) PO PRN (21:18)
[2021-02-23] MEDS: MELATONIN 5 MG TABLETS PO SCH (21:20)
[2021-02-23] MEDS: P-EPHED 60MG/TRIPROLIDI 2.5MG TABLET PO PRN (23:41)
[2021-02-24 09:16] VITALS: BP 136/81; PULSE 92
[2021-02-24] MEDS: HALOPERIDOL 5 MG TABLET PO PRN ×2 (09:51→21:42)
[2021-02-24] MEDS: QUEtiapine FUMARATE 100 MG TABLET (FP) PO SCH (09:51)
[2021-02-24] MEDS: FLUoxetine HCL 20 MG CAPSULE PO SCH (09:51)
[2021-02-24] MEDS: ENALAPRIL MALEATE 10 MG TABLET PO SCH (09:51)
[2021-02-24] MEDS: NICOTINE 7 MG/24 HOURS TOPICAL PATCH TD SCH (09:51)
[2021-02-24] MEDS: PRENATAL VITAMINS W/ FOLIC ACID TABLET (FP) PO SCH (09:51)
[2021-02-24] MEDS: QUEtiapine FUMARATE 400 MG TABLET PO SCH (21:42)
[2021-02-24] MEDS: diphenhydrAMINE HCL 25 MG CAPSULE (FP) PO PRN (21:42)
[2021-02-24] MEDS: MELATONIN 5 MG TABLETS PO SCH (21:42)
[2021-02-24] MEDS: THIAMINE HCL 100 MG TABLET (FP) PO SCH (21:42)
[2021-02-24] MEDS: ACETAMINOPHEN 325 MG TABLET (FP) PO PRN (21:43)
[2021-02-24] MEDS: P-EPHED 60MG/TRIPROLIDI 2.5MG TABLET PO PRN (23:26)
[2021-02-25] MEDS: NICOTINE 7 MG/24 HOURS TOPICAL PATCH TD SCH (09:24)
[2021-02-25] MEDS: PRENATAL VITAMINS W/ FOLIC ACID TABLET (FP) PO SCH (09:24)
[2021-02-25] MEDS: ENALAPRIL MALEATE 10 MG TABLET PO SCH (09:24)
[2021-02-25] MEDS: HALOPERIDOL 5 MG TABLET PO PRN (09:24)
[2021-02-25] MEDS: QUEtiapine FUMARATE 100 MG TABLET (FP) PO SCH (09:24)
[2021-02-25] MEDS: FLUoxetine HCL 20 MG CAPSULE PO SCH (09:24)
== END 2021-02-25 10:15 | disposition home or self-care (01) | DRG 772 ==
LOC: YASAS 14:01 → Y5N 14:03
PROVIDERS: ADMIT Allergy & Immunology; ATTEND Allergy & Immunology
PROC: HZ42ZZZ Group Counseling for Substance Abuse Treatment, Cognitive-Behavioral (ICD-10-PCS; principal; 2021-02-10)
DX: F10.20 Alcohol dependence, uncomplicated (principal); F14.20 Cocaine dependence, uncomplicated; F17.210 Nicotine dependence, cigarettes, uncomplicated; F20.0 Paranoid schizophrenia; F41.9 Anxiety disorder, unspecified; F32.A Depression, unspecified; E78.5 Hyperlipidemia, unspecified; I10 Essential (primary) hypertension; G47.00 Insomnia, unspecified; E66.9 Obesity, unspecified; Z68.31 Body mass index [BMI] 31.0-31.9, adult; Z97.0 Presence of artificial eye
CPT/HCPCS: 36415; 87389

== ENCOUNTER 2021-09-14 08:46 | Inpatient (IN) | payer OTHER ==
[2021-09-13 23:49] VITALS: BMI 25.7
[2021-09-14] MEDS: chlordiazePOXIDE HCL 25 MG CAPSULE PO SCH ×4 (05:25→22:32)
[~2021-09-14 08:46] MED LIST changes: +BENZOCAINE/MENTHOL (CHLORASEPTIC ) LOZENGE MM PRN; +BISMUTH SUBSALICYLATE 524 MG/30 ML PO PRN; +DICYCLOMINE HCL 10 MG CAPSULE PO PRN; +MELATONIN 5 MG TABLETS PO PRN; -MENTHOL/PHENOL 1 EACH UD MM PRN; +METHOCARBAMOL 500 MG TABLET PO PRN; +NICOTINE 10 MG CARTRIDGE (INHALER) IH PRN; -NICOTINE POLACRILEX 2 MG GUM BUC PRN; +ONDANSETRON *ODT* 4 MG TABLET SL PRN; -P-EPHED 60MG/TRIPROLIDI 2.5MG TABLET PO PRN; +chlordiazePOXIDE HCL 25 MG CAPSULE ONE; +chlordiazePOXIDE HCL 25 MG CAPSULE PO ONE; +chlordiazePOXIDE HCL 25 MG CAPSULE PO PRN; -guaiFENesin 200 MG/10 ML 10 ML UNIT-DOSE CUPS PO PRN; -hydrOXYzine PAMOATE 25 MG CAPSULE (FP) PO PRN
[2021-09-14] MEDS ORDERED: chlordiazePOXIDE HCL 25 MG CAPSULE ONE (12:19)
[2021-09-14] MEDS: ENALAPRIL MALEATE 10 MG TABLET PO SCH (13:26)
[2021-09-14] MEDS: PRENATAL VITAMINS W/ FOLIC ACID TABLET (FP) PO SCH (13:26)
[2021-09-14 13:42] LABS: HEMATOCRIT 43.8 % (35.4-49); HEMOGLOBIN 14.3 GM/dL (11.7-16.9); MCH 31.3 pg (25.7-33.7); MCHC 32.8 g/dl (32.0-35.9); MEAN CELL VOLUME 95.6 fl (80-96); MEAN PLT VOLUME 9.6 fl (7.5-11.1); PLATELET COUNT 219 10^3/uL (134-434); RBC 4.58 M/mm3 (4.00-5.60); RDW 14.4 % (11.9-15.9); WHITE BLOOD COUNT 6.4 K/mm3 (4.0-10.0)
[2021-09-14 13:59] LABS: CALCIUM 9.6 mg/dL (8.5-10.1)
[2021-09-14 14:00] LABS: ALBUMIN 3.6 g/dl (3.4-5.0)
[2021-09-14 14:03] LABS: CREATININE 0.9 mg/dL (0.55-1.3)
[2021-09-14 14:12] LABS: BILIRUBIN,TOTAL 0.3 mg/dL (0.2-1)
[2021-09-14] MEDS ORDERED: diphenhydrAMINE HCL 25 MG CAPSULE (FP) PO PRN (14:13)
[2021-09-14] MEDS ORDERED: QUEtiapine FUMARATE 400 MG TABLET PO SCH (22:00)
[2021-09-14] MEDS: THIAMINE HCL 100 MG TABLET (FP) PO SCH (22:31)
[2021-09-14] MEDS: QUEtiapine FUMARATE 300 MG TABLET PO SCH (22:31)
[2021-09-14] MEDS: diphenhydrAMINE HCL 25 MG CAPSULE (FP) PO SCH (22:51)
[2021-09-15] MEDS: chlordiazePOXIDE HCL 25 MG CAPSULE PO SCH ×4 (05:04→23:45)
[2021-09-15] MEDS ORDERED: FLUoxetine HCL 20 MG CAPSULE PO SCH (10:00)
[2021-09-15] MEDS: PRENATAL VITAMINS W/ FOLIC ACID TABLET (FP) PO SCH (12:22)
[2021-09-15] MEDS: ENALAPRIL MALEATE 10 MG TABLET PO SCH (12:22)
[2021-09-15 13:23] VITALS: PULSE 93
[2021-09-15 20:54] VITALS: BP 134/71; TEMP 97.7
[2021-09-15] MEDS: QUEtiapine FUMARATE 300 MG TABLET PO SCH (23:45)
[2021-09-15] MEDS: diphenhydrAMINE HCL 25 MG CAPSULE (FP) PO SCH (23:45)
[2021-09-15] MEDS: THIAMINE HCL 100 MG TABLET (FP) PO SCH (23:46)
[2021-09-16] MEDS ORDERED: chlordiazePOXIDE HCL 10 MG CAPSULE PO PRN
[2021-09-16] MEDS ORDERED: chlordiazePOXIDE HCL 10 MG CAPSULE PO SCH (05:00)
[2021-09-16 16:08] LABS: SARS-CoV-2 NAA Not Detected (Not Detected)
[2021-09-17] MEDS ORDERED: chlordiazePOXIDE HCL 10 MG CAPSULE PO SCH (05:00)
[2021-09-18] MEDS ORDERED: chlordiazePOXIDE HCL 10 MG CAPSULE PO ONE (05:00)
== END 2021-09-15 22:15 | disposition left against medical advice (07) | DRG 770 ==
LOC: YASAS 08:46 → Y6N 12:58
PROVIDERS: ADMIT Allergy & Immunology; ATTEND Surgery
PROC: HZ2ZZZZ Detoxification Services for Substance Abuse Treatment (ICD-10-PCS; principal; 2021-09-14)
DX: F10.230 Alcohol dependence with withdrawal, uncomplicated (principal); F14.20 Cocaine dependence, uncomplicated; F17.210 Nicotine dependence, cigarettes, uncomplicated; F19.280 Other psychoactive substance dependence with psychoactive substance-induced anxiety disorder; F19.282 Other psychoactive substance dependence with psychoactive substance-induced sleep disorder; F19.24 Other psychoactive substance dependence with psychoactive substance-induced mood disorder; F20.0 Paranoid schizophrenia; I10 Essential (primary) hypertension; G47.00 Insomnia, unspecified; E78.5 Hyperlipidemia, unspecified; Z97.0 Presence of artificial eye
CPT/HCPCS: 36415; 80053; 85027; 86780; 87811; C9803-CS; U0003; U0005

== ENCOUNTER 2021-11-08 16:15 | Inpatient (IN) | payer OTHER ==
[2021-11-08 17:34] VITALS: BMI 29.0
[2021-11-08] MEDS ORDERED: MAGNESIUM HYDROX 2400MG/30ML ORAL SUSPENSION 30 ML CUP PO PRN (19:01)
[2021-11-08] MEDS ORDERED: IBUPROFEN 400 MG TABLET (FP) PO PRN (19:01)
[2021-11-08] MEDS ORDERED: P-EPHED 60MG/TRIPROLIDI 2.5MG TABLET PO PRN (19:01)
[2021-11-08] MEDS ORDERED: guaiFENesin 200 MG/10 ML 10 ML UNIT-DOSE CUPS PO PRN (19:01)
[2021-11-08] MEDS ORDERED: MAGNESIUM CITRATE 300 ML BOTTLE PO PRN (19:01)
[2021-11-08] MEDS ORDERED: diphenhydrAMINE HCL 25 MG CAPSULE (FP) PO ONE (19:06)
[2021-11-08] MEDS ORDERED: MELATONIN 5 MG TABLETS PO SCH (22:00)
[2021-11-08] MEDS: THIAMINE HCL 100 MG TABLET (FP) PO SCH (23:55)
[2021-11-08] MEDS: hydrOXYzine PAMOATE 25 MG CAPSULE (FP) PO PRN (23:55)
[2021-11-09] MEDS: ENALAPRIL MALEATE 10 MG TABLET PO SCH (10:07)
[2021-11-09] MEDS: PRENATAL VITAMINS W/ FOLIC ACID TABLET (FP) PO SCH (10:07)
[2021-11-09] MEDS: NICOTINE 7 MG/24 HOURS TOPICAL PATCH TD SCH (10:07)
[2021-11-09] MEDS: FLUoxetine HCL 20 MG CAPSULE PO SCH (11:23)
[2021-11-09 12:29] LABS: HEMATOCRIT 42.2 % (35.4-49); HEMOGLOBIN 14.4 GM/dL (11.7-16.9); MCH 31.8 pg (25.7-33.7); MEAN CELL VOLUME 93.3 fl (80-96); MEAN PLT VOLUME 9.3 fl (7.5-11.1); PLATELET COUNT 236 10^3/uL (134-434); RBC 4.52 M/mm3 (4.00-5.60); RDW 14.6 % (11.9-15.9); WHITE BLOOD COUNT 5.9 K/mm3 (4.0-10.0)
[2021-11-09 12:39] LABS: CALCIUM 9.4 mg/dL (8.5-10.1)
[2021-11-09 12:40] LABS: ALBUMIN 3.6 g/dl (3.4-5.0); BLOOD UREA NITROGEN 12.5 mg/dL (7-18)
[2021-11-09 12:40] LABS: URINE APPEARANCE CLEAR; URINE BILIRUBIN NEGATIVE (NEGATIVE); URINE COLOR YELLOW; URINE GLUCOSE (UA) NEGATIVE (NEGATIVE); URINE KETONE NEGATIVE (NEGATIVE); URINE LEUK ESTERASE NEGATIVE (NEGATIVE); URINE NITRITE NEGATIVE (NEGATIVE); URINE PROTEIN NEGATIVE (NEGATIVE); URINE UROBILINOGEN 0.2 mg/dL (0.2-1.0)
[2021-11-09 12:43] LABS: CREATININE 0.9 mg/dL (0.55-1.3)
[2021-11-09 12:44] LABS: BILIRUBIN,TOTAL 0.6 mg/dL (0.2-1)
[2021-11-09] MEDS: THIAMINE HCL 100 MG TABLET (FP) PO SCH (21:24)
[2021-11-09] MEDS: diphenhydrAMINE HCL 25 MG CAPSULE (FP) PO PRN (21:24)
[2021-11-09] MEDS: BENZTROPINE MESYLATE 1 MG TABLET PO SCH (21:26)
[2021-11-09] MEDS: hydrOXYzine PAMOATE 25 MG CAPSULE (FP) PO PRN (22:03)
[2021-11-09] MEDS: QUEtiapine FUMARATE 400 MG TABLET PO SCH (22:03)
[2021-11-10] MEDS: FLUoxetine HCL 20 MG CAPSULE PO SCH (10:04)
[2021-11-10] MEDS: PRENATAL VITAMINS W/ FOLIC ACID TABLET (FP) PO SCH (10:04)
[2021-11-10] MEDS: ENALAPRIL MALEATE 10 MG TABLET PO SCH (10:04)
[2021-11-10] MEDS: NICOTINE 7 MG/24 HOURS TOPICAL PATCH TD SCH (10:05)
[2021-11-10] MEDS: hydrOXYzine PAMOATE 25 MG CAPSULE (FP) PO PRN (21:24)
[2021-11-10] MEDS: QUEtiapine FUMARATE 400 MG TABLET PO SCH (21:24)
[2021-11-10] MEDS: BENZTROPINE MESYLATE 1 MG TABLET PO SCH (21:24)
[2021-11-10] MEDS: diphenhydrAMINE HCL 25 MG CAPSULE (FP) PO PRN (21:24)
[2021-11-10] MEDS: THIAMINE HCL 100 MG TABLET (FP) PO SCH (21:24)
[2021-11-11] MEDS: NICOTINE 10 MG CARTRIDGE (INHALER) IH PRN (07:30)
[2021-11-11] MEDS: PRENATAL VITAMINS W/ FOLIC ACID TABLET (FP) PO SCH (09:58)
[2021-11-11] MEDS: FLUoxetine HCL 20 MG CAPSULE PO SCH (09:58)
[2021-11-11] MEDS: ENALAPRIL MALEATE 10 MG TABLET PO SCH (09:58)
[2021-11-11] MEDS: NICOTINE 7 MG/24 HOURS TOPICAL PATCH TD SCH (09:59)
[2021-11-11] MEDS: QUEtiapine FUMARATE 200 MG TABLET PO SCH (21:18)
[2021-11-11] MEDS: BENZTROPINE MESYLATE 1 MG TABLET PO SCH (21:19)
[2021-11-11] MEDS: diphenhydrAMINE HCL 25 MG CAPSULE (FP) PO PRN (21:19)
[2021-11-11] MEDS: THIAMINE HCL 100 MG TABLET (FP) PO SCH (21:19)
[2021-11-11] MEDS: hydrOXYzine PAMOATE 25 MG CAPSULE (FP) PO PRN (23:33)
[2021-11-12] MEDS: FLUoxetine HCL 20 MG CAPSULE PO SCH (10:30)
[2021-11-12] MEDS: ENALAPRIL MALEATE 10 MG TABLET PO SCH (10:30)
[2021-11-12] MEDS: PRENATAL VITAMINS W/ FOLIC ACID TABLET (FP) PO SCH (10:30)
[2021-11-12] MEDS: NICOTINE 7 MG/24 HOURS TOPICAL PATCH TD SCH (10:31)
[2021-11-12] MEDS: diphenhydrAMINE HCL 25 MG CAPSULE (FP) PO PRN (21:16)
[2021-11-12] MEDS: THIAMINE HCL 100 MG TABLET (FP) PO SCH (21:16)
[2021-11-12] MEDS: BENZTROPINE MESYLATE 1 MG TABLET PO SCH (21:16)
[2021-11-12] MEDS: QUEtiapine FUMARATE 200 MG TABLET PO SCH (21:16)
[2021-11-13] MEDS: PRENATAL VITAMINS W/ FOLIC ACID TABLET (FP) PO SCH (09:48)
[2021-11-13] MEDS: NICOTINE 7 MG/24 HOURS TOPICAL PATCH TD SCH (09:48)
[2021-11-13] MEDS: ENALAPRIL MALEATE 10 MG TABLET PO SCH (09:49)
[2021-11-13] MEDS: FLUoxetine HCL 20 MG CAPSULE PO SCH (09:49)
[2021-11-13] MEDS: THIAMINE HCL 100 MG TABLET (FP) PO SCH (21:15)
[2021-11-13] MEDS: BENZTROPINE MESYLATE 1 MG TABLET PO SCH (21:15)
[2021-11-13] MEDS: QUEtiapine FUMARATE 200 MG TABLET PO SCH (21:15)
[2021-11-13] MEDS: diphenhydrAMINE HCL 25 MG CAPSULE (FP) PO PRN (21:16)
[2021-11-14] MEDS: FLUoxetine HCL 20 MG CAPSULE PO SCH (10:19)
[2021-11-14] MEDS: ENALAPRIL MALEATE 10 MG TABLET PO SCH (10:19)
[2021-11-14] MEDS: NICOTINE 7 MG/24 HOURS TOPICAL PATCH TD SCH (10:19)
[2021-11-14] MEDS: PRENATAL VITAMINS W/ FOLIC ACID TABLET (FP) PO SCH (10:19)
[2021-11-14] MEDS: diphenhydrAMINE HCL 25 MG CAPSULE (FP) PO PRN (21:15)
[2021-11-14] MEDS: BENZTROPINE MESYLATE 1 MG TABLET PO SCH (21:15)
[2021-11-14] MEDS: THIAMINE HCL 100 MG TABLET (FP) PO SCH (21:15)
[2021-11-14] MEDS: QUEtiapine FUMARATE 200 MG TABLET PO SCH (21:15)
[2021-11-15] MEDS: PRENATAL VITAMINS W/ FOLIC ACID TABLET (FP) PO SCH (09:58)
[2021-11-15] MEDS: FLUoxetine HCL 20 MG CAPSULE PO SCH (09:59)
[2021-11-15] MEDS: NICOTINE 7 MG/24 HOURS TOPICAL PATCH TD SCH (09:59)
[2021-11-15] MEDS: ENALAPRIL MALEATE 10 MG TABLET PO SCH (09:59)
[2021-11-15] MEDS: THIAMINE HCL 100 MG TABLET (FP) PO SCH (21:27)
[2021-11-15] MEDS: BENZTROPINE MESYLATE 1 MG TABLET PO SCH (21:27)
[2021-11-15] MEDS: QUEtiapine FUMARATE 200 MG TABLET PO SCH (21:27)
[2021-11-16] MEDS: NICOTINE 10 MG CARTRIDGE (INHALER) IH PRN (07:03)
[2021-11-16] MEDS: MAG HYDROX/AL HYDROX/SIMETH 30 ML UNIT-DOSE CUP PO PRN ×2 (09:24→20:08)
[2021-11-16] MEDS: NICOTINE 7 MG/24 HOURS TOPICAL PATCH TD SCH (09:25)
[2021-11-16] MEDS: ACETAMINOPHEN 325 MG TABLET (FP) PO PRN ×2 (09:26→15:06)
[2021-11-16] MEDS: FLUoxetine HCL 20 MG CAPSULE PO SCH (09:26)
[2021-11-16] MEDS: PRENATAL VITAMINS W/ FOLIC ACID TABLET (FP) PO SCH (09:26)
[2021-11-16] MEDS: ENALAPRIL MALEATE 10 MG TABLET PO SCH (09:26)
[2021-11-16] MEDS ORDERED: ONDANSETRON 4 MG TABLET PO PRN (09:45)
[2021-11-16] MEDS: BENZTROPINE MESYLATE 1 MG TABLET PO SCH (21:11)
[2021-11-16] MEDS: QUEtiapine FUMARATE 200 MG TABLET PO SCH (21:11)
[2021-11-16] MEDS: THIAMINE HCL 100 MG TABLET (FP) PO SCH (21:11)
[2021-11-17] MEDS: ENALAPRIL MALEATE 10 MG TABLET PO SCH (11:16)
[2021-11-17] MEDS: NICOTINE 7 MG/24 HOURS TOPICAL PATCH TD SCH (11:16)
[2021-11-17] MEDS: FLUoxetine HCL 20 MG CAPSULE PO SCH (11:16)
[2021-11-17] MEDS: PRENATAL VITAMINS W/ FOLIC ACID TABLET (FP) PO SCH (11:16)
[2021-11-17] MEDS: QUEtiapine FUMARATE 200 MG TABLET PO SCH (21:20)
[2021-11-17] MEDS: THIAMINE HCL 100 MG TABLET (FP) PO SCH (21:20)
[2021-11-17] MEDS: BENZTROPINE MESYLATE 1 MG TABLET PO SCH (21:21)
[2021-11-18 06:47] VITALS: RESP 18
[2021-11-18] MEDS: FLUoxetine HCL 20 MG CAPSULE PO SCH (09:52)
[2021-11-18] MEDS: PRENATAL VITAMINS W/ FOLIC ACID TABLET (FP) PO SCH (09:52)
[2021-11-18] MEDS: NICOTINE 7 MG/24 HOURS TOPICAL PATCH TD SCH (09:53)
[2021-11-18] MEDS: ENALAPRIL MALEATE 10 MG TABLET PO SCH (14:28)
[2021-11-18] MEDS: LOPERAMIDE HCL 2 MG CAPSULE PO PRN (14:30)
[2021-11-18] MEDS: ACETAMINOPHEN 325 MG TABLET (FP) PO PRN (19:11)
[2021-11-18] MEDS: QUEtiapine FUMARATE 200 MG TABLET PO SCH (21:24)
[2021-11-18] MEDS: THIAMINE HCL 100 MG TABLET (FP) PO SCH (21:24)
[2021-11-18] MEDS: BENZTROPINE MESYLATE 1 MG TABLET PO SCH (21:24)
[2021-11-18] MEDS: diphenhydrAMINE HCL 25 MG CAPSULE (FP) PO PRN (21:57)
[2021-11-18] MEDS: MAG HYDROX/AL HYDROX/SIMETH 30 ML UNIT-DOSE CUP PO PRN (23:52)
[2021-11-19] MEDS: PRENATAL VITAMINS W/ FOLIC ACID TABLET (FP) PO SCH (09:47)
[2021-11-19] MEDS: ENALAPRIL MALEATE 10 MG TABLET PO SCH (09:48)
[2021-11-19] MEDS: FLUoxetine HCL 20 MG CAPSULE PO SCH (09:48)
[2021-11-19] MEDS: NICOTINE 7 MG/24 HOURS TOPICAL PATCH TD SCH (09:48)
[2021-11-19] MEDS ORDERED: ONDANSETRON *ODT* 4 MG TABLET SL PRN (14:22)
[2021-11-19] MEDS: LOPERAMIDE HCL 2 MG CAPSULE PO PRN ×2 (17:13→23:03)
[2021-11-19] MEDS: diphenhydrAMINE HCL 25 MG CAPSULE (FP) PO PRN (21:30)
[2021-11-19] MEDS: THIAMINE HCL 100 MG TABLET (FP) PO SCH (21:30)
[2021-11-19] MEDS: QUEtiapine FUMARATE 200 MG TABLET PO SCH (21:30)
[2021-11-19] MEDS: BENZTROPINE MESYLATE 1 MG TABLET PO SCH (21:30)
[2021-11-20] MEDS: MAG HYDROX/AL HYDROX/SIMETH 30 ML UNIT-DOSE CUP PO PRN (03:21)
[2021-11-20] MEDS ORDERED: BISMUTH SUBSALICYLATE 262 MG/15 ML BTL PO ONE (03:49)
[2021-11-20] MEDS: NICOTINE 7 MG/24 HOURS TOPICAL PATCH TD SCH (09:57)
[2021-11-20] MEDS: PRENATAL VITAMINS W/ FOLIC ACID TABLET (FP) PO SCH (09:57)
[2021-11-20] MEDS: FLUoxetine HCL 20 MG CAPSULE PO SCH (09:58)
[2021-11-20] MEDS: ENALAPRIL MALEATE 10 MG TABLET PO SCH (09:58)
[2021-11-20] MEDS ORDERED: BISMUTH SUBSALICYLATE 524 MG/30 ML PO PRN (17:29)
[2021-11-20] MEDS: diphenhydrAMINE HCL 25 MG CAPSULE (FP) PO PRN (21:36)
[2021-11-20] MEDS: BENZTROPINE MESYLATE 1 MG TABLET PO SCH (21:36)
[2021-11-20] MEDS: THIAMINE HCL 100 MG TABLET (FP) PO SCH (21:36)
[2021-11-20] MEDS: QUEtiapine FUMARATE 200 MG TABLET PO SCH (21:36)
[2021-11-21] MEDS: NICOTINE 7 MG/24 HOURS TOPICAL PATCH TD SCH (09:52)
[2021-11-21] MEDS: PRENATAL VITAMINS W/ FOLIC ACID TABLET (FP) PO SCH (09:52)
[2021-11-21] MEDS: FLUoxetine HCL 20 MG CAPSULE PO SCH (09:53)
[2021-11-21] MEDS: ENALAPRIL MALEATE 10 MG TABLET PO SCH (09:54)
[2021-11-21 15:27] VITALS: PULSE 83
[2021-11-21] MEDS: THIAMINE HCL 100 MG TABLET (FP) PO SCH (21:01)
[2021-11-21] MEDS: QUEtiapine FUMARATE 200 MG TABLET PO SCH (21:01)
[2021-11-21] MEDS: BENZTROPINE MESYLATE 1 MG TABLET PO SCH (21:02)
[2021-11-21] MEDS: diphenhydrAMINE HCL 25 MG CAPSULE (FP) PO PRN (21:02)
[2021-11-22] MEDS: ACETAMINOPHEN 325 MG TABLET (FP) PO PRN (00:50)
[2021-11-22 06:47] VITALS: BP 146/82; TEMP 97.5
[2021-11-22] MEDS: ENALAPRIL MALEATE 10 MG TABLET PO SCH (09:10)
[2021-11-22] MEDS: FLUoxetine HCL 20 MG CAPSULE PO SCH (09:10)
[2021-11-22] MEDS: PRENATAL VITAMINS W/ FOLIC ACID TABLET (FP) PO SCH (09:10)
[2021-11-22] MEDS: NICOTINE 7 MG/24 HOURS TOPICAL PATCH TD SCH (09:10)
== END 2021-11-22 09:22 | disposition home or self-care (01) | DRG 772 ==
LOC: YASAS 16:15 → Y5N 22:34
PROVIDERS: ADMIT Allergy & Immunology; ATTEND Psychiatry & Neurology Pain Medicine
PROC: HZ42ZZZ Group Counseling for Substance Abuse Treatment, Cognitive-Behavioral (ICD-10-PCS; principal; 2021-11-08)
DX: F10.20 Alcohol dependence, uncomplicated (principal); F14.20 Cocaine dependence, uncomplicated; F17.210 Nicotine dependence, cigarettes, uncomplicated; F20.0 Paranoid schizophrenia; F19.24 Other psychoactive substance dependence with psychoactive substance-induced mood disorder; F19.282 Other psychoactive substance dependence with psychoactive substance-induced sleep disorder; I10 Essential (primary) hypertension; E78.5 Hyperlipidemia, unspecified; G47.00 Insomnia, unspecified; Z97.0 Presence of artificial eye; Z86.69 Personal history of other diseases of the nervous system and sense organs; Z56.0 Unemployment, unspecified
CPT/HCPCS: 36415; 80053; 81003; 85027; 86780; C9803-CS; U0003; U0005